=== PATIENT | female | born 1945 | race Caucasian/White ===

== ENCOUNTER 2019-01-21 08:59 | Day surgery (SDC) | payer MEDICARE, OTHER, SELFPAY ==
[2019-01-21] VITALS (10 sets, daily range): BP systolic 123–159; BP diastolic 69–90; PULSE 68–104; RESP 8–16; TEMP 35.9–36.4; O2SAT 93–98; BMI 27.3
--- NOTE | 2019-01-21 | PATH_ITS ---
[facility] Accession Number: [id number] . 01 Material submitted: . RANDOM MUCOSAL BIOPSIES . 02 Diagnosis: Random Colon Mucosal Biopsies: Multiple fragments of normal appearing colon mucosa. Negative for significant architectural distortion. Negative for significant inflammation, dysplasia and malignancy. MRV/01/22/2019 . 02 Electronically signed: . Gerard Glynn MD, Pathologist NPI- [id number] . 01 Gross description: . RANDOM MUCOSAL BIOPSIES: Received in formalin are multiple fragment(s) of wasserman, soft tissue measuring 0.2 x 0.2 x 0.2 cm to 0.4 x 0.3 x 0.2 cm which is entirely submitted and submitted entirely in 1 cassette(s) /D[facility] /DM . 02 Pathologist provided ICD-10: R19.7 . 02 CPT . 123505 Performed at: 01 [facility] [address] [facility], [place], [place] [id number] MD Armando Martin MD Phone: [phone] Performed at: 02 [facility] [address] [place], [place] [id number] MD Edith Gray MD Phone: [phone]
[2019-01-21] MEDS: SODIUM CHLORIDE 0.9% 1,000 ML 100 ML IV (10:42)
--- NOTE | 2019-01-21 11:26 | PM.PREOP ---
Pre-operative Note Interval Note History & Physical reviewed/Exam performed by Physician: Yes Changes to H&P: No
[2019-01-21] MEDS: fentaNYL 250 MCG/5 ML INJ IV (11:37)
[2019-01-21] MEDS: MIDAZOLAM 5 MG/5 ML VIAL IV (11:38)
--- NOTE | 2019-01-21 11:49 | PM.OP.1 ---
Operative Date/Time/Diagnoses Date of procedure: 01/21/19 Time of procedure: 11:49 Pre-op diagnosis: Change in bowel habits Post-op diagnosis: same Procedure & Clinicians Procedure: Colonoscopy to the cecum with cultures and random mucosal biopsies Same procedure as scheduled: Yes Indications: Last colonoscopy 2 years ago with a recent change in bowel habits Surgeon: Beverly Ashraf Anesthesia Type: Sedation (Versed 5 mg; fentanyl 225 micro g) Operative Notes Findings: 1. Adequate prep 2. No polyps or mass lesions 3. Sultana diverticulosis with very small pocket scattered throughout the length of the colon 4. Grossly normal mucosa without visual abnormality 5. Decreased anal sphincter tone. Closure Type: not applicable Specimen(s): other (1. Random mucosal biopsies-obtained with cold forceps; 2. Stool specimen for GI panel and culture ) Estimated Blood Loss (mL): 1 Procedure in detail: After obtaining informed consent, the patient was brought to the GI suite and placed in the left lateral decubitus position on the examination table. After placement of appropriate monitors, the patient was given incremental doses of Versed and Fentanyl until an appropriate level of sedation was achieved. A time out was held per SCOAP protocol. A digital rectal examination was performed and did not reveal any masses or obstructing lesions. The colonoscope was gently passed into the patient's anus and the entire colon navigated to the level of the cecum with minimal difficulty. Once in the cecum, the scope was withdrawn being sure to go before and beyond all mucosal folds and prominences and get an excellent examination. The findings are noted above. At the level of the rectal vault, the scope was retroflexed and the internal anal canal was examined. The scope was straightened and air aspirated from the colon. The instrument was removed from the patient's body and the procedure was concluded. The patient was allowed to awaken from sedation without difficulty and taken to the post-anesthesia care unit in good condition. Total sedation time was 16 minutes Total withdrawal time was 8 minutes Complications: none Condition: stable Disposition: PACU Plan for aftercare: 1. Discharge to home 2. We will contact you with pathology results and additional recommendations
[2019-01-21] MEDS: ONDANSETRON 4 MG/2 ML INJ IV (12:17)
[2019-01-21 14:03] LABS: Campylobacter Not Detected (Not Detect); Clostridium difficile toxin AB Not Detected (Not Detect); Enteroaggregative E.coli Not Detected (Not Detect); Enteropathogenic E.coli Not Detected (Not Detect); Enterotoxigenic E.coli It/st Not Detected (Not Detect); Plesiomonsa shigelloides Not Detected (Not Detect); Salmonella Not Detected (Not Detect); Shiga-like toxin-prod E.coli Not Detected (Not Detect); Vibrio Not Detected (Not Detect); Vibrio cholerae Not Detected (Not Detect); Yersinia enterocolitica Not Detected (Not Detect)
[2019-01-21 14:04] LABS: Adenovirus F 40/41 Not Detected (Not Detect); Astrovirus Not Detected (Not Detect); Cryptosporidium Not Detected (Not Detect); Cyclospora cayetanensis Not Detected (Not Detect); Entamoeba histolytica Not Detected (Not Detect); Giardia lamblia Not Detected (Not Detect); Norovirus GI/GII Not Detected (Not Detect); Rotavirus A Not Detected (Not Detect); Sapovirus Not Detected (Not Detect); Shigella/Enteroinvasive E.coli Not Detected (Not Detect)
== END 2019-01-21 14:16 | disposition home or self-care (01) ==
PROVIDERS: Family Provider Internal Medicine; PCP Internal Medicine; Visit Provider Surgery
PROC: 0DJD8ZZ Inspection of Lower Intestinal Tract, Via Natural or Artificial Opening Endoscopic (ICD-10-PCS; CPT 45378; principal; 2019-01-21 11:45)
DX: R19.4 Change in bowel habit (principal); K57.30 Diverticulosis of large intestine without perforation or abscess without bleeding
CPT/HCPCS: 45380; 87507; 88305; 99152; J2250; J2405; J3010

== ENCOUNTER 2019-07-15 13:45 | Outpatient (RCR) | payer MEDICARE, OTHER, SELFPAY ==
--- NOTE | 2019-05-11 17:13 | PT.OIE ---
Current Diagnoses Full incontinence of feces (05/06/19) Past Surgical History (Last Reviewed 12/24/18 @ 13:34 by Beverly Ashraf MD) History of cataract removal with insertion of prosthetic lens History of tonsillectomy Status post breast lumpectomy Status post hernia repair Provider Visit Care Team Role Provider Type Juany Wallis MD Primary Care Provider Non-Staff Specialty: Medical Address: [address] [place] [address], [phone] Email: Kati Flores MD Attending Provider Non-Staff Specialty: Medical Address: [address] [place] [address], [phone] Email: Physical Therapy Initial Evaluation PT-OP-A Visit Information Start: 05/06/19 14:33 Freq: Status: Active Protocol: Document 05/06/19 14:30 [facility] (Rec: 05/10/19 08:49 [facility] [email or web address]) Out-Patient Physical Therapy Visit Information Visit Information Visit Type Initial Evaluation Visit Note 73 year old female with fecal incontinence referred to Physical therapy for pelvic floor strengthening Visit Start Time 14:30 Visit Stop Time 15:15 Total Visit Minutes 45 Visit Number 1 Evaluation Information Evaluation Date 05/06/19 PT-OP-B Current Condition Start: 05/06/19 14:33 Freq: Status: Active Protocol: Document 05/06/19 14:30 [facility] (Rec: 05/10/19 08:49 [facility] [email or web address]) Current Condition History of Current Condition Onset Date 2 years ago Current Complaints unable to control fecal leakage at times History of Current Condition Radha reports her symptoms began approximately 2 years ago. She began noticing fecal leakage and it has progressed to the point to when she leaks stool it goes through her clothes and she has to throw them away. Leakage occures approximately 5 times per month. Her stool is described as soft and she never feels as if she can fully evacuate her stool Treatment Goals Patient/Caregiver Goals Pt's goals include strengthenign her pelvic floor for improved support to her pelvic organs and decreasing fecal incontinence PT-OP-F Manual Assessment Start: 05/11/19 17:12 Freq: Status: Active Protocol: Document 05/06/19 14:30 [facility] (Rec: 05/11/19 17:13 [facility] [email or web address]) Manual Assessments Soft Tissue Assessment Soft Tissue Mobility Assessment fascial restrictions across the transverse colon and down the descending colon, fascial adhesions in the suprapubic region PT-OP-I Pelvic Floor Start: 05/06/19 14:33 Freq: Status: Active Protocol: Document 05/06/19 14:30 [facility] (Rec: 05/11/19 16:51 [facility] [email or web address]) Pelvic Floor Assessment Urine Pelvic Floor Surgery No Urinary Symptoms Urge Sensation Other Urinary Symptoms nocturia 2-3 times pernight Voiding Frequency 2-3 times per day Nocturia yes Pelvic Clock Pelvic Clock 12-3 Atrophy Pelvic Clock 3-6 Atrophy Guarding Pelvic Clock 6-9 Atrophy Guarding Pelvic Clock 9-12 Atrophy Pelvic Clock Other posterior wall is guarded Prolapse Cystocele Grade 2 Urethrocele Grade 2 Contraction Ability Voluntary Contraction Weak Voluntary Relaxation Weak Manual Muscle Testing Left 2 Manual Muscle Testing Right 2 Manual Muscle Testing Anterior 1 Manual Muscle Testing Posterior 2 Muscle Endurance (Seconds) 4 PT-OP-Q Treatments Start: 05/06/19 14:33 Freq: Status: Active Protocol: Document 05/06/19 14:30 [facility] (Rec: 05/11/19 16:51 [facility] [email or web address]) Self-Care/Home Management Treatment Education Patient Education Body Mechanics Home Exercise Program Posture Other Education education on positioning for toileting including feet on the floor instead of on toes, spreading sitting bones and getting her knees up a bit higher by putting books under her feet. Pt was also instructed in the ILU self massage. PT-OP-T Assessment and Plan Start: 05/06/19 14:33 Freq: Status: Active Protocol: Document 05/06/19 14:30 [facility] (Rec: 05/11/19 16:51 [facility] [email or web address]) Physical Therapy Assessment Rehab Potential Rehabilitation Potential Good Evaluation Complexity Number of Personal Factors/Comorbidities 0 Number of Body Systems Impaired 1-2 Clinical Presentation at Evaluation Stable Impairments Impairments Pain Posture Soft Tissue Mobility Strength Tone Goals Three Impairment poor endurance of the levator ani < 5 second hold time Short Term Goal (STG) Radha is able to improve the endurance of the pelvic floor to 10 second hold time in supine STG Duration 4 weeks Detention Goal (LTG) Radha is able to improve her endurance of the pelvic floor to 10 second hold time in standing LTG Duration 8 weeks Two Impairment weakness of the levator ani 1/ 5 anterior, 2/5 lateral and posterior sandoval Short Term Goal (STG) With EMG biofeedback Radha is able to increase facilitation and sensation of her pelvic floor for improved recruitment of the levator ani STG Duration 4 weeks Candlemaker Goal (LTG) Improve strength of the levator ani to 3/5 or better on MMT for improved support for the pelvic organs LTG Duration 8 weeks One Impairment Fecal incontinence leakage through her clothes Detention Goal (LTG) Radha is able to increase her pelvic floor strength to decrease fecal incontinence LTG Duration 8 weeks Assessment Summary Assessment Radha is a 73 year female referred to Physical therapy for fecal leakage and pelvic floor weakness. Her symtpoms began approximately 2 years ago. At this time she is leaking 5 times per month and leaking enough that she has to throw her clothes away following a leak. Leakage is caused by changing positions such as sit-stand, walking to the toilet, and strong urge to void. Radha reports that she will leak stool in standing positions as well as lying down. She does report pelvic pressure with standing and exertion or straining. She describes very soft stool that has a large amount of mucus in it. This very soft stool does make it difficult to control and she may benefit from further work up as to why her stool is so soft. We talked about dietary intake a little today and Radha does report she does not like to cook and she isn't eating much throughout the day except at her dinner meal. With examination she is very weak in her pelvic floor musculature. She tests 1/5 anterior wall, 2/5 lateral and posterior sandoval MMT. She is very guarded in the posterior wall and has difficulty relaxing following a contraction. I educated Radha today on body mechanics for defecation as she is currently not able to place her feet flat on the floor at home. We discussed using books for now to place her feet on to be able to further relax her pelvic floor. She was taught a self colon massage over the abdomen to help stimulate peristalsis to assist with fully emptying her bowels. She will benefit from pelvic floor strengtheing with EMG biofeedback for improved support of the rectal sphincter and rectum. She is a good candidate for PT Physical Therapy Plan Frequency and Duration Frequency of Treatment 1x/Week Duration of Treatment 8 Plan of Care Start Date 05/06/19 Plan of Care End Date 07/01/19 Therapeutic Interventions Therapeutic Interventions Home Exercise Program Manual Therapy Neuromuscular Re-education Patient/Caregiver Education Self-Care/Home Management Soft Tissue Mobilization Therapeutic Exercises Modalities Biofeedback Next Visit Focus/Plan Next Note Type Treatment Note Next Visit Plan Begin EMG biofeedback next visit for pelvic floor strengthening. Review ILU self massage
--- NOTE | 2019-05-11 17:13 | PT.OPPOC ---
Current Diagnoses Full incontinence of feces (05/06/19) Provider Visit Care Team Role Provider Type Juany Wallis MD Primary Care Provider Non-Staff Specialty: Medical Address: [address] [place] [address], [phone] Email: Kati Flores MD Attending Provider Non-Staff Specialty: Medical Address: [address] [place] [address], [phone] Email: Plan Of Care PT-OP-T Assessment and Plan Start: 05/06/19 14:33 Freq: Status: Active Protocol: Document 05/06/19 14:30 [facility] (Rec: 05/11/19 16:51 [facility] [email or web address]) Physical Therapy Assessment Rehab Potential Rehabilitation Potential Good Evaluation Complexity Number of Personal Factors/Comorbidities 0 Number of Body Systems Impaired 1-2 Clinical Presentation at Evaluation Stable Impairments Impairments Pain Posture Soft Tissue Mobility Strength Tone Goals Three Impairment poor endurance of the levator ani < 5 second hold time Short Term Goal (STG) Radha is able to improve the endurance of the pelvic floor to 10 second hold time in supine STG Duration 4 weeks Fmd Teacher Goal (LTG) Radha is able to improve her endurance of the pelvic floor to 10 second hold time in standing LTG Duration 8 weeks Two Impairment weakness of the levator ani 1/ 5 anterior, 2/5 lateral and posterior sandoval Short Term Goal (STG) With EMG biofeedback Radha is able to increase facilitation and sensation of her pelvic floor for improved recruitment of the levator ani STG Duration 4 weeks Fmd Teacher Goal (LTG) Improve strength of the levator ani to 3/5 or better on MMT for improved support for the pelvic organs LTG Duration 8 weeks One Impairment Fecal incontinence leakage through her clothes Fmd Teacher Goal (LTG) Radha is able to increase her pelvic floor strength to decrease fecal incontinence LTG Duration 8 weeks Assessment Summary Assessment Radha is a 73 year female referred to Physical therapy for fecal leakage and pelvic floor weakness. Her symptoms began approximately 2 years ago. At this time she is leaking 5 times per month and leaking enough that she has to throw her clothes away following a leak. Leakage is caused by changing positions such as sit-stand, walking to the toilet, and strong urge to void. Radha reports that she will leak stool in standing positions as well as lying down. She does report pelvic pressure with standing and exertion or straining. She describes very soft stool that has a large amount of mucus in it. This very soft stool does make it difficult to control and she may benefit from further work up as to why her stool is so soft. We talked about dietary intake a little today and Radha does report she does not like to cook and she isn't eating much throughout the day except at her dinner meal. With examination she is very weak in her pelvic floor musculature. She tests 1/5 anterior wall, 2/5 lateral and posterior sandoval MMT. She is very guarded in the posterior wall and has difficulty relaxing following a contraction. I educated Radha today on body mechanics for defecation as she is currently not able to place her feet flat on the floor at home. We discussed using books for now to place her feet on to be able to further relax her pelvic floor. She was taught a self colon massage over the abdomen to help stimulate peristalsis to assist with fully emptying her bowels. She will benefit from pelvic floor strengthening with EMG biofeedback for improved support of the rectal sphincter and rectum. She is a good candidate for PT Physical Therapy Plan Frequency and Duration Frequency of Treatment 1x/Week Duration of Treatment 8 Plan of Care Start Date 05/06/19 Plan of Care End Date 07/01/19 Therapeutic Interventions Therapeutic Interventions Home Exercise Program Manual Therapy Neuromuscular Re-education Patient/Caregiver Education Self-Care/Home Management Soft Tissue Mobilization Therapeutic Exercises Modalities Biofeedback Next Visit Focus/Plan Next Note Type Treatment Note Next Visit Plan Begin EMG biofeedback next visit for pelvic floor strengthening. Review ILU self massage Plan of Care Dates Plan of Care Start Date 05/06/19 Plan of Care End Date 07/01/19 Please Sign and Return: I have reviewed this Plan of Care and certify that the skilled therapy services above are required to meet the patient?s needs. Physician Signature Date Printed Name and Credentials Clinical Instructor Signature Printed Name and Credentials
--- NOTE | 2019-05-13 18:52 | PT.OTN ---
Current Diagnoses Full incontinence of feces (05/13/19) Physical Therapy Treatment Note PT-OP-A Visit Information Start: 05/06/19 14:33 Freq: Status: Active Protocol: Document 05/13/19 14:30 [facility] (Rec: 05/13/19 18:52 [facility] [email or web address]) Out-Patient Physical Therapy Visit Information Visit Information Visit Type Treatment Note Visit Start Time 14:30 Visit Stop Time 15:15 Total Visit Minutes 45 Visit Number 2 Evaluation Information Evaluation Date 05/06/19 PT-OP-B Current Condition Start: 05/06/19 14:33 Freq: Status: Active Protocol: Document 05/06/19 14:30 [facility] (Rec: 05/10/19 08:49 [facility] [email or web address]) Current Condition History of Current Condition Onset Date 2 years ago Current Complaints unable to control fecal leakage at times History of Current Condition Radha reports her symptoms began approximately 2 years ago. She began noticing fecal leakage and it has progressed to the point to when she leaks stool it goes through her clothes and she has to throw them away. Leakage occures approximately 5 times per month. Her stool is described as soft and she never feels as if she can fully evacuate her stool Treatment Goals Patient/Caregiver Goals Pt's goals include strengthenign her pelvic floor for improved support to her pelvic organs and decreasing fecal incontinence PT-OP-C Subjective Start: 05/06/19 14:33 Freq: Status: Active Protocol: Document 05/13/19 14:30 [facility] (Rec: 05/13/19 18:52 [facility] [email or web address]) OP-PT Subjective Patient Comments Patient Comments Radha reports she felt very sore in her pelvis following her first visit and her exercises. She reports leaking three times in one day this week PT-OP-F Manual Assessment Start: 05/11/19 17:12 Freq: Status: Active Protocol: Document 05/06/19 14:30 [facility] (Rec: 05/11/19 17:13 [facility] [email or web address]) Manual Assessments Soft Tissue Assessment Soft Tissue Mobility Assessment fascial restrictions across the transverse colon and down the descending colon, fascial adhesions in the suprapubic region PT-OP-I Pelvic Floor Start: 05/06/19 14:33 Freq: Status: Active Protocol: Document 05/06/19 14:30 [facility] (Rec: 05/11/19 16:51 [facility] [email or web address]) Pelvic Floor Assessment Urine Pelvic Floor Surgery No Urinary Symptoms Urge Sensation Other Urinary Symptoms nocturia 2-3 times pernight Voiding Frequency 2-3 times per day Nocturia yes Pelvic Clock Pelvic Clock 12-3 Atrophy Pelvic Clock 3-6 Atrophy Guarding Pelvic Clock 6-9 Atrophy Guarding Pelvic Clock 9-12 Atrophy Pelvic Clock Other posterior wall is guarded Prolapse Cystocele Grade 2 Urethrocele Grade 2 Contraction Ability Voluntary Contraction Weak Voluntary Relaxation Weak Manual Muscle Testing Left 2 Manual Muscle Testing Right 2 Manual Muscle Testing Anterior 1 Manual Muscle Testing Posterior 2 Muscle Endurance (Seconds) 4 PT-OP-Q Treatments Start: 05/06/19 14:33 Freq: Status: Active Protocol: Document 05/13/19 14:30 [facility] (Rec: 05/13/19 18:52 [facility] [email or web address]) Therapeutic Exercises Supine Exercises 6 Supine Exercise Name Happy baby stretch Reps/Minutes x 1 min hold 5 Supine Exercise Name TA faciliation in hooklying 4 Supine Exercise Name rol outs Reps/Minutes 3 x 10 reps 3 Supine Exercise Name ball squeeze Reps/Minutes x 10 2 Supine Exercise Name pelvic floor quick contractions Reps/Minutes x 10 reps 1 Supine Exercise Name pelvic floor long holds Reps/Minutes 10 seconds on 10 seconds off x 10 reps Manual Therapy Treatment Soft Tissue Mobilization 1 Body Location ILU massage over the colon Mobilization Type Strumming PT-OP-T Assessment and Plan Start: 05/06/19 14:33 Freq: Status: Active Protocol: Document 05/13/19 14:30 [facility] (Rec: 05/13/19 18:52 [facility] [email or web address]) Physical Therapy Assessment Assessment Summary Assessment EMG biofeedback was initiated today for pelvic floor strengthneing. A rectal sensor was used as the vaginal sensor was too painful. Average resting tone is 5.2 uv , average contraction 8.3 uv and max of 11.8. Relaxed awareness was taught with pelvic floor stretch. No pain reported with pelvic floor exercises today Physical Therapy Plan Frequency and Duration Frequency of Treatment 1x/Week Duration of Treatment 8 Plan of Care Start Date 05/06/19 Plan of Care End Date 07/01/19 Next Visit Focus/Plan Next Note Type Treatment Note Next Visit Plan continue to work on both pelvic floor stabilization as well as relaxed awareness of the pelvic floor.
--- NOTE | 2019-05-20 17:34 | PT.OTN ---
Current Diagnoses Full incontinence of feces (05/20/19) Physical Therapy Treatment Note PT-OP-A Visit Information Start: 05/06/19 14:33 Freq: Status: Active Protocol: Document 05/20/19 17:29 [facility] (Rec: 05/20/19 17:34 [facility] [email or web address]) Out-Patient Physical Therapy Visit Information Visit Information Visit Type Treatment Note Visit Start Time 14:30 Visit Stop Time 15:15 Total Visit Minutes 45 Visit Number 3 PT-OP-B Current Condition Start: 05/06/19 14:33 Freq: Status: Active Protocol: Document 05/06/19 14:30 [facility] (Rec: 05/10/19 08:49 [facility] [email or web address]) Current Condition History of Current Condition Onset Date 2 years ago Current Complaints unable to control fecal leakage at times History of Current Condition Radha reports her symptoms began approximately 2 years ago. She began noticing fecal leakage and it has progressed to the point to when she leaks stool it goes through her clothes and she has to throw them away. Leakage occures approximately 5 times per month. Her stool is described as soft and she never feels as if she can fully evacuate her stool Treatment Goals Patient/Caregiver Goals Pt's goals include strengthenign her pelvic floor for improved support to her pelvic organs and decreasing fecal incontinence PT-OP-C Subjective Start: 05/06/19 14:33 Freq: Status: Active Protocol: Document 05/20/19 17:29 [facility] (Rec: 05/20/19 17:34 [facility] [email or web address]) OP-PT Subjective Patient Comments Patient Comments Radha reports her soreness has gone away. She has only experienced one leak this week PT-OP-F Manual Assessment Start: 05/11/19 17:12 Freq: Status: Active Protocol: Document 05/06/19 14:30 [facility] (Rec: 05/11/19 17:13 [facility] [email or web address]) Manual Assessments Soft Tissue Assessment Soft Tissue Mobility Assessment fascial restrictions across the transverse colon and down the descending colon, fascial adhesions in the suprapubic region PT-OP-I Pelvic Floor Start: 05/06/19 14:33 Freq: Status: Active Protocol: Document 05/06/19 14:30 [facility] (Rec: 05/11/19 16:51 [facility] [email or web address]) Pelvic Floor Assessment Urine Pelvic Floor Surgery No Urinary Symptoms Urge Sensation Other Urinary Symptoms nocturia 2-3 times pernight Voiding Frequency 2-3 times per day Nocturia yes Pelvic Clock Pelvic Clock 12-3 Atrophy Pelvic Clock 3-6 Atrophy Guarding Pelvic Clock 6-9 Atrophy Guarding Pelvic Clock 9-12 Atrophy Pelvic Clock Other posterior wall is guarded Prolapse Cystocele Grade 2 Urethrocele Grade 2 Contraction Ability Voluntary Contraction Weak Voluntary Relaxation Weak Manual Muscle Testing Left 2 Manual Muscle Testing Right 2 Manual Muscle Testing Anterior 1 Manual Muscle Testing Posterior 2 Muscle Endurance (Seconds) 4 PT-OP-Q Treatments Start: 05/06/19 14:33 Freq: Status: Active Protocol: Document 05/20/19 17:29 [facility] (Rec: 05/20/19 17:34 [facility] [email or web address]) Therapeutic Exercises Supine Exercises 8 Supine Exercise Name single knee to chest stretch 7 Supine Exercise Name TA with marches Reps/Minutes x 10 each leg 6 Supine Exercise Name Happy baby stretch Reps/Minutes x 1 min hold 5 Supine Exercise Name TA faciliation in hooklying 4 Supine Exercise Name rol outs Reps/Minutes 3 x 10 reps 3 Supine Exercise Name ball squeeze Reps/Minutes x 10 2 Supine Exercise Name pelvic floor quick contractions Reps/Minutes x 10 reps 1 Supine Exercise Name pelvic floor long holds Reps/Minutes 10 seconds on 10 seconds off x 10 reps Manual Therapy Treatment Soft Tissue Mobilization 1 Body Location ILU massage over the colon Mobilization Type Strumming PT-OP-T Assessment and Plan Start: 05/06/19 14:33 Freq: Status: Active Protocol: Document 05/20/19 17:29 [facility] (Rec: 05/20/19 17:34 [facility] [email or web address]) Physical Therapy Assessment Assessment Summary Assessment Good increase in stabilization today with the pelvic floor. Her resting tone was decreased to 1-2 uv much improved and endurance with also much better. Physical Therapy Plan Next Visit Focus/Plan Next Note Type Treatment Note Next Visit Plan Increase HEP with TA facilitation next visit.
--- NOTE | 2019-06-10 17:22 | PT.OTN ---
Current Diagnoses Full incontinence of feces (06/10/19) Physical Therapy Treatment Note PT-OP-A Visit Information Start: 05/06/19 14:33 Freq: Status: Active Protocol: Document 06/10/19 14:30 [facility] (Rec: 06/10/19 17:22 [facility] [email or web address]) Out-Patient Physical Therapy Visit Information Visit Information Visit Type Treatment Note Visit Start Time 14:30 Visit Stop Time 15:15 Total Visit Minutes 45 Visit Number 4 Evaluation Information Evaluation Date 05/06/19 PT-OP-B Current Condition Start: 05/06/19 14:33 Freq: Status: Active Protocol: Document 05/06/19 14:30 [facility] (Rec: 05/10/19 08:49 [facility] [email or web address]) Current Condition History of Current Condition Onset Date 2 years ago Current Complaints unable to control fecal leakage at times History of Current Condition Radha reports her symptoms began approximately 2 years ago. She began noticing fecal leakage and it has progressed to the point to when she leaks stool it goes through her clothes and she has to throw them away. Leakage occures approximately 5 times per month. Her stool is described as soft and she never feels as if she can fully evacuate her stool Treatment Goals Patient/Caregiver Goals Pt's goals include strengthenign her pelvic floor for improved support to her pelvic organs and decreasing fecal incontinence PT-OP-C Subjective Start: 05/06/19 14:33 Freq: Status: Active Protocol: Document 06/10/19 14:35 [facility] (Rec: 06/10/19 14:36 [facility] [id number]) OP-PT Subjective Patient Comments Patient Comments Pt reports she has been eating stool a better consistancy so she hasn't had any leakages with stool. She has had still some bladder leakage when she wakes up with a full bladder Patient Reported Progress Improving PT-OP-F Manual Assessment Start: 05/11/19 17:12 Freq: Status: Active Protocol: Document 05/06/19 14:30 [facility] (Rec: 05/11/19 17:13 [facility] [email or web address]) Manual Assessments Soft Tissue Assessment Soft Tissue Mobility Assessment fascial restrictions across the transverse colon and down the descending colon, fascial adhesions in the suprapubic region PT-OP-I Pelvic Floor Start: 05/06/19 14:33 Freq: Status: Active Protocol: Document 05/06/19 14:30 [facility] (Rec: 07/23/19 16:51 [facility] [email or web address]) Pelvic Floor Assessment Urine Pelvic Floor Surgery No Urinary Symptoms Urge Sensation Other Urinary Symptoms nocturia 2-3 times pernight Voiding Frequency 2-3 times per day Nocturia yes Pelvic Clock Pelvic Clock 12-3 Atrophy Pelvic Clock 3-6 Atrophy Guarding Pelvic Clock 6-9 Atrophy Guarding Pelvic Clock 9-12 Atrophy Pelvic Clock Other posterior wall is guarded Prolapse Cystocele Grade 2 Urethrocele Grade 2 Contraction Ability Voluntary Contraction Weak Voluntary Relaxation Weak Manual Muscle Testing Left 2 Manual Muscle Testing Right 2 Manual Muscle Testing Anterior 1 Manual Muscle Testing Posterior 2 Muscle Endurance (Seconds) 4 PT-OP-Q Treatments Start: 05/06/19 14:33 Freq: Status: Active Protocol: Document 06/10/19 14:30 [facility] (Rec: 06/10/19 17:22 [facility] [email or web address]) Therapeutic Exercises Supine Exercises 8 Supine Exercise Name single knee to chest stretch 7 Supine Exercise Name TA with marches Reps/Minutes x 10 each leg 6 Supine Exercise Name Happy baby stretch Reps/Minutes x 1 min hold 5 Supine Exercise Name TA faciliation in hooklying 4 Supine Exercise Name roll outs Reps/Minutes 3 x 10 reps 3 Supine Exercise Name ball squeeze Reps/Minutes x 10 2 Supine Exercise Name pelvic floor quick contractions Reps/Minutes x 10 reps 1 Supine Exercise Name pelvic floor long holds Reps/Minutes 10 seconds on 10 seconds off x 10 reps Sidelying Exercises 1 Sidelying Exercise Name sidelying clam shells Reps/Minutes 3 x 10 reps Other Exercises 1 Other Exercise Name quadraped TA facilitation Reps/Minutes x 10 reps PT-OP-T Assessment and Plan Start: 05/06/19 14:33 Freq: Status: Active Protocol: Document 06/10/19 14:30 [facility] (Rec: 06/10/19 17:22 [facility] [email or web address]) Physical Therapy Assessment Assessment Summary Assessment Resting tone was very much decreased and strength is improving. No c/o fecal leakage and urinary urgency has only happened in the am with a full bladder Physical Therapy Plan Frequency and Duration Frequency of Treatment 1x/Week Duration of Treatment 8 Plan of Care Start Date 05/06/19 Plan of Care End Date 07/01/19 Next Visit Focus/Plan Next Note Type Treatment Note Next Visit Plan recheck pelvic floor with internal exam next visit
--- NOTE | 2019-06-29 10:49 | PT.OTN ---
Current Diagnoses Full incontinence of feces (06/28/19) Physical Therapy Treatment Note PT-OP-A Visit Information Start: 05/06/19 14:33 Freq: Status: Active Protocol: Document 06/28/19 13:00 [facility] (Rec: 06/29/19 10:43 [facility] [email or web address]) Out-Patient Physical Therapy Visit Information Visit Information Visit Type Progress Note Visit Start Time 13:00 Visit Stop Time 13:45 Total Visit Minutes 45 Visit Number 5 PT-OP-B Current Condition Start: 05/06/19 14:33 Freq: Status: Active Protocol: Document 05/06/19 14:30 [facility] (Rec: 05/10/19 08:49 [facility] [email or web address]) Current Condition History of Current Condition Onset Date 2 years ago Current Complaints unable to control fecal leakage at times History of Current Condition Radha reports her symptoms began approximately 2 years ago. She began noticing fecal leakage and it has progressed to the point to when she leaks stool it goes through her clothes and she has to throw them away. Leakage occures approximately 5 times per month. Her stool is described as soft and she never feels as if she can fully evacuate her stool Treatment Goals Patient/Caregiver Goals Pt's goals include strengthenign her pelvic floor for improved support to her pelvic organs and decreasing fecal incontinence PT-OP-C Subjective Start: 05/06/19 14:33 Freq: Status: Active Protocol: Document 06/28/19 13:00 [facility] (Rec: 06/29/19 10:43 [facility] [email or web address]) OP-PT Subjective Patient Comments Patient Comments Radha reports overall things are better. She will at times have a bowel movement and then shower and the heat of the shower will cause her to have a second bowel movement. Radha also reports it is difficult for her to get to her exercises daily PT-OP-F Manual Assessment Start: 05/11/19 17:12 Freq: Status: Active Protocol: Document 05/06/19 14:30 [facility] (Rec: 05/11/19 17:13 [facility] [email or web address]) Manual Assessments Soft Tissue Assessment Soft Tissue Mobility Assessment fascial restrictions across the transverse colon and down the descending colon, fascial adhesions in the suprapubic region PT-OP-I Pelvic Floor Start: 05/06/19 14:33 Freq: Status: Active Protocol: Document 05/06/19 14:30 [facility] (Rec: 05/11/19 16:51 [facility] [email or web address]) Pelvic Floor Assessment Urine Pelvic Floor Surgery No Urinary Symptoms Urge Sensation Other Urinary Symptoms nocturia 2-3 times pernight Voiding Frequency 2-3 times per day Nocturia yes Pelvic Clock Pelvic Clock 12-3 Atrophy Pelvic Clock 3-6 Atrophy,Guarding Pelvic Clock 6-9 Atrophy,Guarding Pelvic Clock 9-12 Atrophy Pelvic Clock Other posterior wall is guarded Prolapse Cystocele Grade 2 Urethrocele Grade 2 Contraction Ability Voluntary Contraction Weak Voluntary Relaxation Weak Manual Muscle Testing Left 2 Manual Muscle Testing Right 2 Manual Muscle Testing Anterior 1 Manual Muscle Testing Posterior 2 Muscle Endurance (Seconds) 4 PT-OP-Q Treatments Start: 05/06/19 14:33 Freq: Status: Active Protocol: Document 06/28/19 13:00 [facility] (Rec: 06/29/19 10:43 [facility] [email or web address]) Therapeutic Exercises Supine Exercises 8 Supine Exercise Name single knee to chest stretch 7 Supine Exercise Name TA with marches Reps/Minutes x 10 each leg 6 Supine Exercise Name Happy baby stretch Reps/Minutes x 1 min hold 5 Supine Exercise Name TA faciliation in hooklying 4 Supine Exercise Name roll outs Reps/Minutes 3 x 10 reps 3 Supine Exercise Name ball squeeze Reps/Minutes x 10 2 Supine Exercise Name pelvic floor quick contractions Reps/Minutes x 10 reps 1 Supine Exercise Name pelvic floor long holds Reps/Minutes 10 seconds on 10 seconds off x 10 reps Sidelying Exercises 1 Sidelying Exercise Name sidelying clam shells Reps/Minutes 3 x 10 reps Manual Therapy Treatment Manual Techniques 1 Type manual assessment of pelvic floor strength Comments anterior wall 2/5 MMT posterior wall 3/5 lateral sandoval 3/5 Improved endurance to 8 second hold time PT-OP-T Assessment and Plan Start: 05/06/19 14:33 Freq: Status: Active Protocol: Document 06/28/19 13:00 [facility] (Rec: 06/29/19 10:43 [facility] [email or web address]) Physical Therapy Assessment Goals Three Impairment poor endurance of the levator ani < 5 second hold time Short Term Goal (STG) Radha is able to improve the endurance of the pelvic floor to 10 second hold time in supine GOOD PROGRESS, UP TO * SECONDS NOW STG Duration 4 weeks Business Services Representative Goal (LTG) Radha is able to improve her endurance of the pelvic floor to 10 second hold time in standing LTG Duration 8 weeks Two Impairment weakness of the levator ani 1/ 5 anterior, 2/5 lateral and posterior sandoval Short Term Goal (STG) With EMG biofeedback Radha is able to increase facilitation and sensation of her pelvic floor for improved recruitment of the levator ani GOAL MET Halfway Goal (LTG) Improve strength of the levator ani to 3/5 or better on MMT for improved support for the pelvic organs GOAL MET WITH THE EXCEPTION OF THE ANTERIOR WALL 2/5 MMT One Impairment Fecal incontinence leakage through her clothes Business Services Representative Goal (LTG) Radha is able to increase her pelvic floor strength to decrease fecal incontinence OVERALL FECAL INCONTINENCE SYMPTOMS HAVE LESSENED AND RADHA HAS REPORTED A FEW WEEKS WITHOUT LEAKAGE Progress Towards Goals Progress Towards Goals Progressing Toward Goals Assessment Summary Assessment Radha is making steady progress with Physical Therapy . Her resting tone is at baseline now and her strength of contraction is improved. Re-evaluation of pelvic floor shows MMT 2/5 anterior pelvic floor, 3/5 all others so there is improvment. Fecal leakage is less and urges are less frequent. Radha is waking 1 time per night to void now instead of 2-3. She has a few visits scheduled to progress her to pelvic floor strengthening in upright postures and functional positions. She will then be discharged to a independent home program. Thank you for this referral. Physical Therapy Plan Frequency and Duration Frequency of Treatment 1x/Week Duration of Treatment 4 Plan of Care Start Date 06/28/19 Plan of Care End Date 07/26/19 Therapeutic Interventions Therapeutic Interventions Home Exercise Program,Manual Therapy,Neuromuscular Re- education,Patient/Caregiver Education,Self-Care/Home Management,Soft Tissue Mobilization,Therapeutic Exercises Modalities Biofeedback Next Visit Focus/Plan Next Note Type Treatment Note Next Visit Plan Progress pelvic floor strengthening in upright positions
--- NOTE | 2019-06-29 10:49 | PT.OPPOC ---
Current Diagnoses Full incontinence of feces (06/28/19) Visit Care Team Role Provider Type Juany Wallis MD Primary Care Provider Non-Staff Specialty: Medical Address: [address] [place] [address], [phone] Email: Kati Flores MD Attending Provider Non-Staff Specialty: Medical Address: [address] [place], [place] [address], [place], [phone] Email: Plan Of Care PT-OP-T Assessment and Plan Start: 05/06/19 14:33 Freq: Status: Active Protocol: Document 06/28/19 13:00 [facility] (Rec: 06/29/19 10:43 [facility] [email or web address]) Physical Therapy Assessment Goals Three Impairment poor endurance of the levator ani < 5 second hold time Short Term Goal (STG) Radha is able to improve the endurance of the pelvic floor to 10 second hold time in supine GOOD PROGRESS, UP TO 8 SECONDS NOW STG Duration 4 weeks Cigar Bander Goal (LTG) Radha is able to improve her endurance of the pelvic floor to 10 second hold time in standing LTG Duration 8 weeks Two Impairment weakness of the levator ani 1/ 5 anterior, 2/5 lateral and posterior sandoval Short Term Goal (STG) With EMG biofeedback Radha is able to increase facilitation and sensation of her pelvic floor for improved recruitment of the levator ani GOAL MET Nursing Home Goal (LTG) Improve strength of the levator ani to 3/5 or better on MMT for improved support for the pelvic organs GOAL MET WITH THE EXCEPTION OF THE ANTERIOR WALL 2/5 MMT One Impairment Fecal incontinence leakage through her clothes Cigar Bander Goal (LTG) Radha is able to increase her pelvic floor strength to decrease fecal incontinence OVERALL FECAL INCONTINENCE SYMPTOMS HAVE LESSENED AND RADHA HAS REPORTED A FEW WEEKS WITHOUT LEAKAGE Progress Towards Goals Progress Towards Goals Progressing Toward Goals Assessment Summary Assessment Radha is making steady progress with Physical Therapy . Her resting tone is at baseline now and her strength of contraction is improved. Re-evaluation of pelvic floor shows MMT 2/5 anterior pelvic floor, 3/5 all others so there is improvement. Fecal leakage is less and urges are less frequent. Radha is waking 1 time per night to void now instead of 2-3. She has a few visits scheduled to progress her to pelvic floor strengthening in upright postures and functional positions. She will then be discharged to a independent home program. Thank you for this referral. Physical Therapy Plan Frequency and Duration Frequency of Treatment 1x/Week Duration of Treatment 4 Plan of Care Start Date 06/28/19 Plan of Care End Date 07/26/19 Therapeutic Interventions Therapeutic Interventions Home Exercise Program,Manual Therapy,Neuromuscular Re- education,Patient/Caregiver Education,Self-Care/Home Management,Soft Tissue Mobilization,Therapeutic Exercises Modalities Biofeedback Next Visit Focus/Plan Next Note Type Treatment Note Next Visit Plan Progress pelvic floor strengthening in upright positions Plan of Care Dates Plan of Care Start Date 06/28/19 Plan of Care End Date 07/26/19 Please Sign and Return: I have reviewed this Plan of Care and certify that the skilled therapy services above are required to meet the patient?s needs. Physician Signature Date Printed Name and Credentials Clinical Instructor Signature Printed Name and Credentials
--- NOTE | 2019-07-15 14:25 | PT.OTN ---
Current Diagnoses Full incontinence of feces (07/15/19) Physical Therapy Treatment Note PT-OP-A Visit Information Start: 05/06/19 14:33 Freq: Status: Active Protocol: Document 07/15/19 13:47 [facility] (Rec: 07/15/19 13:54 [facility] [id number]) Out-Patient Physical Therapy Visit Information Visit Information Visit Type Treatment Note Visit Start Time 13:45 PT-OP-B Current Condition Start: 05/06/19 14:33 Freq: Status: Active Protocol: Document 05/06/19 14:30 [facility] (Rec: 05/10/19 08:49 [facility] [email or web address]) Current Condition History of Current Condition Onset Date 2 years ago Current Complaints unable to control fecal leakage at times History of Current Condition Radha reports her symptoms began approximately 2 years ago. She began noticing fecal leakage and it has progressed to the point to when she leaks stool it goes through her clothes and she has to throw them away. Leakage occures approximately 5 times per month. Her stool is described as soft and she never feels as if she can fully evacuate her stool Treatment Goals Patient/Caregiver Goals Pt's goals include strengthenign her pelvic floor for improved support to her pelvic organs and decreasing fecal incontinence PT-OP-C Subjective Start: 05/06/19 14:33 Freq: Status: Active Protocol: Document 07/15/19 13:47 [facility] (Rec: 07/15/19 13:54 [facility] [id number]) OP-PT Subjective Patient Comments Patient Comments Feels better and thinks time can be her last visit. Leakage has improved. PT-OP-F Manual Assessment Start: 05/11/19 17:12 Freq: Status: Active Protocol: Document 05/06/19 14:30 [facility] (Rec: 05/11/19 17:13 [facility] [email or web address]) Manual Assessments Soft Tissue Assessment Soft Tissue Mobility Assessment fascial restrictions across the transverse colon and down the descending colon, fascial adhesions in the suprapubic region PT-OP-I Pelvic Floor Start: 05/06/19 14:33 Freq: Status: Active Protocol: Document 05/06/19 14:30 [facility] (Rec: 05/11/19 16:51 [facility] [email or web address]) Pelvic Floor Assessment Urine Pelvic Floor Surgery No Urinary Symptoms Urge Sensation Other Urinary Symptoms nocturia 2-3 times pernight Voiding Frequency 2-3 times per day Nocturia yes Pelvic Clock Pelvic Clock 12-3 Atrophy Pelvic Clock 3-6 Atrophy,Guarding Pelvic Clock 6-9 Atrophy,Guarding Pelvic Clock 9-12 Atrophy Pelvic Clock Other posterior wall is guarded Prolapse Cystocele Grade 2 Urethrocele Grade 2 Contraction Ability Voluntary Contraction Weak Voluntary Relaxation Weak Manual Muscle Testing Left 2 Manual Muscle Testing Right 2 Manual Muscle Testing Anterior 1 Manual Muscle Testing Posterior 2 Muscle Endurance (Seconds) 4 PT-OP-Q Treatments Start: 05/06/19 14:33 Freq: Status: Active Protocol: Document 07/15/19 14:21 [facility] (Rec: 07/15/19 14:22 [facility] [id number]) Therapeutic Exercises Supine Exercises 8 Supine Exercise Name single knee to chest stretch 7 Supine Exercise Name TA with marches Reps/Minutes x 10 each leg 6 Supine Exercise Name Happy baby stretch Reps/Minutes x 1 min hold 5 Supine Exercise Name TA faciliation in hooklying 4 Supine Exercise Name roll outs Reps/Minutes 3 x 10 reps 3 Supine Exercise Name ball squeeze Reps/Minutes x 10 2 Supine Exercise Name pelvic floor quick contractions Reps/Minutes x 10 reps 1 Supine Exercise Name pelvic floor long holds Reps/Minutes 10 seconds on 10 seconds off x 10 reps Sidelying Exercises 1 Sidelying Exercise Name sidelying clam shells Reps/Minutes 3 x 10 reps Other Exercises 1 Other Exercise Name quadraped TA facilitation Reps/Minutes x 10 reps PT-OP-T Assessment and Plan Start: 05/06/19 14:33 Freq: Status: Active Protocol: Document 07/15/19 14:24 [facility] (Rec: 07/15/19 14:25 [facility] [email or web address]) Physical Therapy Assessment Assessment Summary Assessment Pt feels independent with her home program and has made good overall progress. all exercises were reviewed today and she shows good awareness with her program. She will be discharged to a home program at this time Physical Therapy Plan Discharge Physical Therapy Discharge Reasons Goals Met
== END 2019-07-30 12:48 ==
LOC: PHYS 13:45
PROVIDERS: PCP Internal Medicine; Visit Provider Internal Medicine Gastroenterology
DX: R15.9 Full incontinence of feces (principal)
CPT/HCPCS: 97110; 97140; 97161; 97535

== ENCOUNTER 2019-10-02 16:53 | Emergency (ER) | payer MEDICARE, OTHER, SELFPAY ==
[2019-10-02 17:26] VITALS: BP 137/83; PULSE 74; RESP 18; TEMP 36.8; O2SAT 94; BMI 27.6
[2019-10-02 18:00] VITALS: BP 140/69; PULSE 75; RESP 18; O2SAT 97
--- NOTE | 2019-10-02 18:42 | ED_ITS ---
HPI - Nausea/Vomiting/Diarrhea General Chief complaint: Nausea/Vomiting/Diarrhea Stated complaint: NVD Time Seen by Provider: 10/02/19 18:42 Source: patient Mode of arrival: Family Vehicle Limitations: no limitations History of Present Illness HPI Narrative: 74-year-old female comes in with complaint of diarrhea. Patient denies any fevers. She denies any nausea, or vomiting, she denies abdominal pain. Patient has had diarrhea. She states 1st episode was on Friday, she has had about 3 episodes through the week. Today she had a large episode this afternoon. She has not had any since. She did try some Imodium afterwards. She denies any black or bloody stool. Patient states that she was started on prednisone on Friday. She states the diarrhea started before the prednisone. The prednisone was for a cough which she states is improving. She denies any chest pain or shortness of breath. Patient does take medication for hypertension, dyslipidemia as well as mood and insomnia. Patient states that s he had hernia repair at 16 months and in grade, she has had a mastectomy for breast cancer along with chemo and radiation and states she just had surveillance last week and everything came back negative. Patient has also had a tonsillectomy. She denies tobacco, alcohol or illicit. Related Data Home Medications Medication Instructions Recorded Confirmed carvedilol [Coreg] 6.25 mg PO BID #0 02/25/17 anastrozole 1 mg tablet 1 mg PO DAILY 12/24/18 12/24/18 aripiprazole 5 mg tablet 5 mg PO DAILY 12/24/18 12/24/18 atorvastatin 80 mg tablet 80 mg PO BEDTIME 12/24/18 12/24/18 betamethasone dipropionate 0.05 % 1 applictn TOP BID PRN 12/24/18 12/24/18 topical cream carvedilol 3.125 mg tablet 3.125 mg PO BID 12/24/18 12/24/18 lactobacillus combination no.8 3 3,000 mmu cells PO DAILY 12/24/18 12/24/18 billion cell capsule lisinopril 5 mg tablet 5 mg PO BID tab 12/24/18 12/24/18 lorazepam 0.5 mg tablet 0.5 mg PO BEDTIME PRN 12/24/18 12/24/18 multivitamin 1 tab PO DAILY 12/24/18 12/24/18 paroxetine HCl 40 mg tablet 60 mg PO DAILY tab 12/24/18 12/24/18 trazodone 100 mg tablet 300 mg PO BEDTIME tab 12/24/18 12/24/18 venlafaxine 75 mg capsule,extended 75 mg PO DAILY 12/24/18 12/24/18 release 24 hr Allergies Allergy/AdvReac Type Severity Reaction Status Date / Time latex [LATEX] Allergy Mild erythema Verified 01/21/19 10:06 dexamethasone [DEXAMETHASONE] AdvReac Severe depression, 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/21/19 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 psychotic Penicillins [PENICILLINS] AdvReac Severe Diarrhea Verified 01/21/19 10:06 Sulfa (Sulfonamide AdvReac Vomiting Verified 10/02/19 17:31 Antibiotics) Review of Systems Review of Systems ROS Unobtainable: All systems reviewed & are unremarkable except as noted in HPI and below Patient History Medical History (Updated 10/02/19 @ 20:10 by Olivia Hargrove DO) Dyslipidemia (Acute) Hypertension (Acute) Mood disorder (Acute) Surgical History History of cataract removal with insertion of prosthetic lens History of tonsillectomy Status post breast lumpectomy Status post hernia repair Family History Father Hypertension Heart disease Mother Hypertension Social History household members: none education level: college occupational status: previously employed Smoking Status: Never smoker Smoking Status: Never smoker alcohol intake frequency: 0-2 drinks per day Substance Use Type: does not use Exam Narrative Exam Narrative: GENERAL: Alert and oriented x three, well-appearing elderly female in mild distress. HEENT: Head normocephalic, atraumatic, EOMI, pupils reactive, face symmetric, moist mucous membranes NECK: Supple, full range of motion CARDIOVASCULAR: Regular rate and rhythm without murmurs, rubs or gallops. RESPIRATORY: Breath sounds equal bilaterally, no wheezes rales or rhonchi. ABDOMEN: Soft, nontender. Nondistended. Normoactive bowel sounds all 4 quadrants. No guarding or rebound, rigidity, no mass : No CVA tenderness EXTREMITIES: Normal range of motion, no clubbing or edema. Neurovascularly intact NEUROLOGICAL: Cranial nerves II through XII grossly intact. Moving all extremities SKIN: Warm, dry, no petechiae, no rashes or lesions. Initial Vital Signs Initial Vital Signs: Vital Signs Temperature 98.3 F 10/02/19 17:26 Pulse Rate 74 10/02/19 17:26 Respiratory Rate 18 10/02/19 17:26 Blood Pressure 137/83 10/02/19 17:26 Pulse Oximetry 94 10/02/19 17:26 Course Orders Ordered: ED Orders 10/02/19 18:52 XR abdomen min 2V Stat 10/02/19 19:17 Urine Culture Stat Urine Microscopic Stat 10/02/19 19:18 Complete Blood Count AUTO DIFF Stat Comprehensive Metabolic Panel Stat Lipase Stat Vital Signs Vital signs: Vital Signs - 8 hr 10/02/19 17:26 10/02/19 18:00 10/02/19 19:30 Temperature 98.3 F Pulse Rate 74 75 81 Respiratory Rate 18 18 Blood Pressure 137/83 Blood Pressure [Left Arm] 140/69 142/85 H Pulse Oximetry 94 97 97 MDM - Nausea/Vomiting/Diarrhea Lab Data Attestation: I reviewed the patient's lab results. Result diagrams: 10/02/19 19:18 10/02/19 19:18 Labs: Lab Results 10/02/19 10/02/19 10/02/19 Range/Units 19:17 19:18 19:18 WBC 6.9 (4.5-11.0) X10^3/uL RBC 4.05 (4.0-5.2) X10^6/uL Hgb 13.2 (12.0-16.0) g/dL Hct 38.5 (36-46) % MCV 95.0 (80-100) fL MCH 32.5 (26-34) PG MCHC 34.2 (30-36) % RDW 13.5 (11.6-14.8) % Plt Count 353 (150-400) X10^3/uL Neut % (Auto) 75.8 H (50-75) % Lymph % (Auto) 18.8 L (25-40) % Evangeline % (Auto) 4.6 (3-14) % Eos % (Auto) 0.0 L (2-4) % Baso % (Auto) 0.8 (0-2) % Neut # (Auto) 5200 (8447-5884) /uL Lymph # (Auto) 1300 (0344-8918) /uL Evangeline # (Auto) 300 (0-900) /uL Eos # (Auto) 0 (0-450) /uL Baso # (Auto) 100 (0-100) /uL Sodium 138 (137-145) mmol/L Potassium 3.6 (3.4-5.1) mmol/L Chloride 100 (98-107) mmol/L Carbon Dioxide 29 (22-32) mmol/L BUN 15 (7-17) mg/dL Creatinine 0.70 (0.52-1.04) mg/dL Estimated GFR > 60.0 (>60) mL/min BUN/Creatinine Ratio 21.4 (6-22) Glucose 102 (80-110) mg/dL Calcium 8.6 (8.4-10.2) mg/dL Total Bilirubin 0.5 (0.2-1.3) mg/dL AST 35 (14-36) IU/L ALT 39 H (<35) IU/L Alkaline Phosphatase 85 (38-126) U/L Total Protein 7.3 (6.3-8.2) g/dL Albumin 4.0 (3.5-5.0) g/dL Globulin 3.3 (1.7-4.1) g/dL Albumin/Globulin Ratio 1.2 (1.0-2.8) Lipase 56 (23-300) U/L Urine RBC 0-1/hpf (0-5/HPF) Urine WBC 0-1/hpf (0-5/HPF) Ur Squamous Epith Cells None seen (0-5/HPF) Urine Bacteria None seen (None) Ur Culture Indicated? Specimen cultured Urine Dip Bedside Urine Glucose Negative Bedside Urine Bilirubin - Negative Bedside Urine Ketone ++ 40 Urine Specific [place] 1.015 Bedside Urine Occult Blood +/- Bedside Urine pH 6.0 Bedside Urine Protein +/- 15 Bedside Urine Urobilinogen +/- 1mg Bedside Urine Nitrite - Negative Bedside Urine Leukocytes +/- 15 Esterase Imaging Data Abdominal x-ray: Radiologist's impression: [address] [address] XRay Report Signed Patient: Radha Cooper EMR#: [id number] : [id number]:[id number] Age/Sex: 74 / FDate of Service: 10/02/19 Loc: ED Accession Number: [id number] Procedure: XR abdomen min 2V Ordering Provider: Olivia Hargrove D.O. PROCEDURE: XR ABDOMEN MIN 2V INDICATIONS: diarrhea intermittent since Friday TECHNIQUE: 2 views of the abdomen were acquired. COMPARISON: None. FINDINGS: Surgical changes and devices: None. Bowel: No pneumoperitoneum. The bowel gas pattern is normal. Soft tissues: No masses; visualized solid organ contours appear normal in size. No suspicious abdominal calcifications. Bones: Severe degenerative changes are present throughout the lumbar spine. IMPRESSION: No acute intra-abdominal findings. Dictated by: Marlena Sparks M.D. on 10/02/2019 at 19:27 Approved by: Marlena Sparks M.D. on 10/02/2019 at 19:27 [facility] Narrative Medical decision making narrative: Patient comes in with complaint of intermittent diarrhea without any other symptoms. Diarrhea does not mucousy or bloody in any form. Patient has not had abdominal pain, no fevers or nausea or vomiting. Labs do not show any major abnormalities, urine does show little bit ketones, it does have some changes but on microscopy appears to probably be contaminated. Patient's abdominal x-ray does not show any acute changes. Discu ssed with patient I think it's safe for her to return we discussed return precautions, that she can continue Imodium up to 4 tablets daily. If she has intermittent diarrhea with no other changes she could follow up with her primary care but if she has fevers, no abdominal pain, vomiting, black or bloody stools or other concerning changes she should return. Patient feels comfortable with this plan. Encouraged her to increase her hydration which she is comfortable with and states she likes water a lot. Discharge Plan Departure Patient Disposition: Home Clinical Impression: Diarrhea Discharge Date/Time: 10/02/19 20:37 Instructions: Diarrhea Activity Restrictions/Additional Instructions: Follow up with primary care in the next several days for recheck, call for an appointment on Friday. You may take Imodium 1-2 tablets after loose bowel movement, you may take a maximum of 4 tablets in 24 hours. You may wish to try a probiotic once daily to see if this helps with your loose stools. Return to the ER for fevers greater 100.4 F, persistent vomiting, new or worsening abdominal pain, flank pain, black or bloody stools or other new or concerning symptoms. Prescriptions: No Action carvedilol [Coreg] 6.25 MG tablet 6.25 mg PO BID Qty: 0 RF: 0 lisinopril 5 mg tablet 5 mg PO BID RF: 0 venlafaxine 75 mg capsule,extended release 24hr 75 mg PO DAILY RF: 0 carvedilol 3.125 mg tablet 3.125 mg PO BID RF: 0 aripiprazole 5 mg tablet 5 mg PO DAILY RF: 0 anastrozole 1 mg tablet 1 mg PO DAILY RF: 0 atorvastatin 80 mg tablet 80 mg PO BEDTIME RF: 0 lorazepam 0.5 mg tablet 0.5 mg PO BEDTIME PRN (Reason: Anxiety) RF: 0 paroxetine HCl 40 mg tablet 60 mg PO DAILY RF: 0 Adult Probiotic 3 billion cell capsule 3,000 mmu cells PO DAILY RF: 0 multivitamin tablet 1 tab PO DAILY RF: 0 trazodone 100 mg tablet 300 mg PO BEDTIME RF: 0 betamethasone dipropionate 0.05 % cream 1 applictn TOP BID PRN (Reason: Dry Skin) RF: 0 Referrals: Juany Wallis MD [Primary Care Provider] -
--- NOTE | 2019-10-02 18:52 | DI.RAD.S_ITS ---
PROCEDURE: XR ABDOMEN MIN 2V INDICATIONS: diarrhea intermittent since Friday TECHNIQUE: 2 views of the abdomen were acquired. COMPARISON: None. FINDINGS: Surgical changes and devices: None. Bowel: No pneumoperitoneum. The bowel gas pattern is normal. Soft tissues: No masses; visualized solid organ contours appear normal in size. No suspicious abdominal calcifications. Bones: Severe degenerative changes are present throughout the lumbar spine. IMPRESSION: No acute intra-abdominal findings. Dictated by: Marlena Sparks M.D. on 10/02/2019 at 19:27 Approved by: Marlena Sparks M.D. on 10/02/2019 at 19:27
[2019-10-02 19:25] LABS: Bacteria Urine None Seen
[2019-10-02 19:30] VITALS: BP 142/85; PULSE 81; O2SAT 97
[2019-10-02 19:30] LABS: Add Manual Diff / Slide Review NO; Basophils Absolute Auto 100 /uL (0-100); Basophils Percent Auto 0.8 % (0-2); Eosinophils Absolute Auto 0 /uL (0-450); Hematocrit 38.5 % (36-46); Hemoglobin 13.2 g/dL (12.0-16.0); Lymphocytes Absolute Auto 1300 /uL (1100-4500); Lymphocytes Percent Auto 18.8 % (25-40); Mean Corpuscular HGB Conc 34.2 % (30-36); Mean Corpuscular Hemoglobin 32.5 PG (26-34); Monocytes Absolute Auto 300 /uL (0-900); Monocytes Percent Auto 4.6 % (3-14); Neutrophils Absolute Auto 5200 /uL (1500-7000); Neutrophils Percent Auto 75.8 % (50-75); Platelet Count 353 X10^3/uL (150-400); Red Blood Cell Count 4.05 X10^6/uL (4.0-5.2); Red Cell Distribution Width 13.5 % (11.6-14.8); White Blood Cell Count 6.9 X10^3/uL (4.5-11.0)
[2019-10-02 19:35] LABS: Culture Indicated Urine Specimen Cultured; RBC Urine 0-1/HPF (0-5/HPF); Squamous Epithelial Cell Urine None Seen (0-5/HPF); WBC Urine 0-1/HPF (0-5/HPF)
[2019-10-02 19:39] LABS: Alanine Aminotransferase 39 IU/L (<35); Albumin Globulin Ratio 1.2 (1.0-2.8); Alkaline Phosphatase 85 U/L (38-126); Aspartate Aminotransferase 35 IU/L (14-36); BUN Creatinine Ratio 21.4 (6-22); Bilirubin Total 0.5 mg/dL (0.2-1.3); Blood Urea Nitrogen 15 mg/dL (7-17); Calcium 8.6 mg/dL (8.4-10.2); Carbon Dioxide 29 mmol/L (22-32); Chloride 100 mmol/L (98-107); Estimated Glomerular Filt Rate > 60.0 mL/min (>60); Globulin 3.3 g/dL (1.7-4.1); Glucose 102 mg/dL (80-110); HEMOLYSIS 17 (0-50); Lipase 56 U/L (23-300); Potassium 3.6 mmol/L (3.4-5.1); Sodium 138 mmol/L (137-145); Total Protein 7.3 g/dL (6.3-8.2)
[2019-10-02 20:00] VITALS: BP 145/66; PULSE 79; RESP 18; O2SAT 96
== END 2019-10-02 20:37 | disposition home or self-care (01) ==
PROVIDERS: Emergency Provider Emergency Medicine; PCP Internal Medicine
DX: R19.7 Diarrhea, unspecified (principal); E78.5 Hyperlipidemia, unspecified; I10 Essential (primary) hypertension
CPT/HCPCS: 36415; 74019; 80053; 81003; 81015; 83690; 85025; 87086; 99282; 99284

== ENCOUNTER 2019-10-05 13:45 | Outpatient (RCR) | payer MEDICARE, OTHER, SELFPAY ==
--- NOTE | 2019-08-17 12:37 | PT.OPPOC ---
Current Diagnoses Pain in right leg (08/19/19) Pain in left leg (08/19/19) Unsteadiness on feet (08/19/19) Visit Care Team Role Provider Type Juany Wallis MD Attending Provider Non-Staff Primary Care Provider Specialty: Medical Address: [address] [place] [address], [phone] Email: Plan Of Care PT-OP-T Assessment and Plan Start: 08/17/19 18:00 Freq: Status: Active Protocol: Document 08/17/19 10:30 [facility] (Rec: 08/17/19 19:07 [facility] [id number]) Physical Therapy Assessment Rehab Potential Rehabilitation Potential Good Evaluation Complexity Number of Personal Factors/Comorbidities 1-2 Number of Body Systems Impaired 1-2 Clinical Presentation at Evaluation Stable Impairments Impairments Activity Tolerance,Balance, Functional Activities, Functional Mobility,Gait,Pain, Posture,Soft Tissue Mobility, Strength Goals Five Impairment Difficulty with ascending and descending stairs Short Term Goal (STG) Ascend and descend stairs with use of handrail, step over step for 4 steps. STG Duration 09/18/19 Associate Professor Of Sociology Goal (LTG) Ascend and descend stairs with use of handrail, step over step for 18 steps. LTG Duration 10/19/19 Four Impairment Loss of confidence with daily activities - ABC scoring Long-Term Goal (LTG) Improving scoring to moderate level functioning (score of 50 -80) LTG Duration 10/19/19 Three Impairment Low LEFS Score Short Term Goal (STG) Improve score of LEFs from 60- 79% impaired to 40-59% STG Duration 09/18/19 Long-Term Goal (LTG) Improve score of LEFs to 20-39 % impaired. LTG Duration 10/19/19 Two Impairment Loss of balance as noted with [employer] Balance Testing Long-Term Goal (LTG) Improve scoring to 1-19% impaired. LTG Duration 10/19/19 One Impairment Decrease ADL functional activity level - FAAM scoring Short Term Goal (STG) Improve score from 60-79 restriced to 40-59% STG Duration 09/18/19 Associate Professor Of Sociology Goal (LTG) Improve score to 20-39% restricted LTG Duration 10/19/19 Assessment Summary Assessment Patient presents with severe pain that occurs in the back of both thighs. This has been ongoing for at least two years. Secondarily she has decrease strength, endurance and functional ability. Her overall confidence has also been affected causing fear of falling. Physical Therapy Plan Frequency and Duration Frequency of Treatment 2x/Week Duration of Treatment 8 weeks Plan of Care Start Date 08/17/19 Plan of Care End Date 10/19/19 Therapeutic Interventions Therapeutic Interventions Balance Training,Coordination Training,Gait Training,Home Exercise Program,Neuromuscular Re-education,Self-Care/Home Management,Soft Tissue Mobilization,Therapeutic Activities,Therapeutic Exercises,Vestibular Rehabilitation Next Visit Focus/Plan Next Note Type Treatment Note Next Visit Plan Establish HEP Plan of Care Dates Plan of Care Start Date 08/17/19 Plan of Care End Date 10/19/19
--- NOTE | 2019-08-17 19:07 | PT.OIE ---
Current Diagnoses Pain in right leg (08/17/19) Pain in left leg (08/17/19) Unsteadiness on feet (08/17/19) Past Surgical History (Last Reviewed 12/24/18 @ 13:34 by Beverly Ashraf MD) History of cataract removal with insertion of prosthetic lens History of tonsillectomy Status post breast lumpectomy Status post hernia repair Visit Care Team Role Provider Type Juayn Wallis MD Attending Provider Non-Staff Primary Care Provider Specialty: Medical Address: [address] [place] [address], [phone] Email: Physical Therapy Initial Evaluation PT-OP-A Visit Information Start: 08/17/19 18:00 Freq: Status: Active Protocol: Document 08/17/19 10:30 NFW (Rec: 08/17/19 19:07 NFW [id number]) Out-Patient Physical Therapy Visit Information Visit Information Visit Type Initial Evaluation Visit Start Time 10:30 Visit Stop Time 11:15 Total Visit Minutes 45 Visit Number 1 Evaluation Information Evaluation Date 08/17/19 PT-OP-B Current Condition Start: 08/17/19 18:00 Freq: Status: Active Protocol: Document 08/17/19 10:30 NFW (Rec: 08/17/19 19:07 NFW [id number]) Current Condition History of Current Condition Onset Date At least two years Current Complaints Pain back of both thighs. (no pain front of thighs) History of Current Condition Onset insidious. Treatment Goals Patient/Caregiver Goals Pt has fear of falling and would like to regain confidence with walking on her feet and performing her daily activities including her exercises at [facility]. Current Functional Impairments (Reported) Functional Limitations- ADL's Sleeps in recliner on main level to avoid going up 17 stairs to the bedroom and for personal reasons. Functional Limitations- Mobility/Gait Difficulty in going up and down curbs/steps if no handrails are available. Functional Limitations- Recreation/ Apprehensions to using the [employer] treadmill at [facility] due to difficulty stepping up and down from the treadmill. PT-OP-C Subjective Start: 08/17/19 18:00 Freq: Status: Active Protocol: Document 08/17/19 10:30 NFW (Rec: 08/17/19 19:07 NFW [id number]) OP-PT Subjective Patient Comments Patient Comments Pain reports pain in the back of her thighs that occurs in the mornings. Pain level will reach as high as a 10/10. Pain relieved by taking extra strength tylenol in ~ one hour . Patient Reported Progress Improving Patient Questionnaires ABC- Activity Specific Balance Confidence Scale ABC Score 42.5 ABC Functional Impairment 40 to <60% Impaired (Score 41- 60) Dizziness Handicap Inventory DHI Score 20 DHI Functional Impairment 20 to 39% Impaired (Score 20- 39) Foot & Ankle Ability Measure- ADL and Sports FAAM-ADL Score 34 FAAM-ADL Impairment 40 to 59% Impaired (Score 33- 49) FAAM-Sport Score 9 FAAM-Sport Impairment 60 to 79% Impaired (Score 6-11 ) Lower Extremity Functional Scale LEFS Score 27 LEFS Impairment 60 to 79% Impaired (Score 17- 31) PT-OP-D Balance Start: 08/17/19 18:00 Freq: Status: Active Protocol: Document 08/17/19 10:30 NFW (Rec: 08/17/19 19:07 NFW [id number]) [place] Balance Assessment Evaluation Sitting to Standing Ability Independent w/Hands Unsupported Stance Safely- 2 minutes Sitting Unsupported, Feet on Floor Safely- 2 minutes Standing to Sitting Ability Assist, Control w/Hands Transfer Ability Safely, Hand Use Unsupported Stance- Eyes Closed Safely, 10 seconds Unsupported Stance- Eyes Open Independent, 1 minute Reaching Forward Standing Safely, 5 inches Pick- Up Object From Floor Independent/Safe Look Behind Shoulder - Standing Shifts Weight Well Turning 360 Degrees Turns Bilateral, < 4 secs Unsupported Stance, Alternating Feet on 4 Steps w/Supervision Stair Unsupported Tandem Stance Balance Lost- Step/Stand Unilateral Leg Stance Lifts Leg/Unable to Hold Total Score [place] Total Score (out of 56 points) 43 [place] Impairment Rating 20 to 39% Impaired (Score 34- 44) PT-OP-E Functional Tests Start: 08/17/19 18:00 Freq: Status: Active Protocol: Document 08/17/19 10:30 NFW (Rec: 08/17/19 19:07 NFW [id number]) Functional Tests Dynamic Gait Index (DGI) Score 21 DGI Impairment Rating 1 to <20% Impaired (Score 20- 23) PT-OP-F Manual Assessment Start: 08/17/19 18:00 Freq: Status: Active Protocol: Document 08/17/19 10:30 NFW (Rec: 08/17/19 19:07 NFW [id number]) Manual Assessments Soft Tissue Assessment Soft Tissue Mobility Assessment Soft tissue tightness bilateral hamstrings. PT-OP-G Mobility & Gait Start: 08/17/19 18:00 Freq: Status: Active Protocol: Document 08/17/19 10:30 NFW (Rec: 08/17/19 19:07 NFW [id number]) OP Gait Assessment Gait Gait Assistance Required: Independent Assistive Devices Assistive Device None Factors Limiting Gait Function Factors Limiting Gait Function Abnormal Tonal Influences, Decreased Activity Tolerance, Pain,Poor Balance Comments Gait Comments Right medial list in ambulation, min to no arms swing. Has normal stride lengths. Stair Climbing Evaluation Evaluation Level of Assist On Stairs Independent Devices Stair Climbing Assistive Devices Left Railing Technique/Endurance Stair Climbing Direction Ascend and Descend Stair Climbing Technique Step to Step Number of Steps Climbed 6 Stair Climbing Set # Repetitions (reps) 2 Comments Stair Climbing Comments Step to gait leading with left in ascension, and right with descension. PT-OP-H Neuro Start: 08/17/19 18:00 Freq: Status: Active Protocol: Document 08/17/19 10:30 NFW (Rec: 08/17/19 19:07 NFW [id number]) Sensation Evaluation Gross Sensation Gross Sensation WNL PT-OP-J Posture/Palpation/Skin Start: 08/17/19 18:00 Freq: Status: Active Protocol: Document 08/17/19 10:30 NFW (Rec: 08/17/19 19:07 NFW [id number]) Posture Evaluation Position Standing L-Spine Posture Flattened Arm Posture (L) Internally Rotated,(R) Internally Rotated Pelvis Posture Posterior Tilted Knee Posture (L) Genu Recurvatum,(R) Genu Recurvatum Ankle/Foot Posture (L) Calcaneal Eversion,(R) Calcaneal Eversion,(L) Forefoot Abducted,(R) Forefoot Abducted Foot Arch (L) No Arch,(R) No Arch Palpation Assessment Location One Palpation Location Post Thighs Palpation Details No real point tenderness. PT-OP-K Range of Motion Start: 08/17/19 18:00 Freq: Status: Active Protocol: Document 08/17/19 10:30 NFW (Rec: 08/17/19 19:07 NFW [id number]) Lumbar Spine Range of Motion Lumbar Spine Active Testing Position Standing Comments WFL Hip Goniometric Range of Motion Hip Right Passive Hip ROM WFL Yes Testing Position Supine Straight Leg Raise 70 Left Passive Hip ROM WFL Yes Testing Position Supine Straight Leg Raise 80 Hip ROM Limitations Hip ROM Limitations Soft Tissue Tightness PT-OP-M Strength Start: 08/17/19 18:00 Freq: Status: Active Protocol: Document 08/17/19 10:30 NFW (Rec: 08/17/19 19:07 NFW [id number]) Hip Strength Hip Manual Muscle Testing Right Flexion (L2) 4 Good Abduction 4 Good Left Flexion (L2) 4 Good Abduction 4 Good Knee Strength Knee Manual Muscle Testing Right Flexion (S2) 4 Good Extension (L3) 4 Good Left Flexion (S2) 4 Good Extension (L3) 4 Good Ankle/Foot Strength Ankle and Foot Manual Muscle Testing Right Dorsiflexion (L4) 5 Normal Plantarflexion (S1) 5 Normal Left Dorsiflexion (L4) 5 Normal Plantarflexion (S1) 5 Normal PT-OP-Q Treatments Start: 08/17/19 18:00 Freq: Status: Active Protocol: Document 08/17/19 10:30 NFW (Rec: 08/17/19 19:07 [facility] [id number]) Therapeutic Exercises Other Exercises 2 Other Exercise Name Home Up Time - up on feet every hour from 9 am to 7 pm for min of 5 min. Side bilateral 1 Other Exercise Name Review of exercises at [facility] - leg presses, hip abd/add, knee ext, UE row Side bilateral Resistance 1 plate Reps/Minutes 10 reps 3 sets PT-OP-T Assessment and Plan Start: 08/17/19 18:00 Freq: Status: Active Protocol: Document 08/17/19 10:30 NFW (Rec: 08/17/19 19:07 NFW [id number]) Physical Therapy Assessment Rehab Potential Rehabilitation Potential Good Evaluation Complexity Number of Personal Factors/Comorbidities 1-2 Number of Body Systems Impaired 1-2 Clinical Presentation at Evaluation Stable Impairments Impairments Activity Tolerance,Balance, Functional Activities, Functional Mobility,Gait,Pain, Posture,Soft Tissue Mobility, Strength Goals Five Impairment Difficulty with ascending and descending stairs Short Term Goal (STG) Ascend and descend stairs with use of handrail, step over step for 4 steps. STG Duration 09/18/19 Long-Term Goal (LTG) Ascend and descend stairs with use of handrail, step over step for 18 steps. LTG Duration 10/19/19 Four Impairment Loss of confidence with daily activities - ABC scoring Long-Term Goal (LTG) Improving scoring to moderate level functioning (score of 50 -80) LTG Duration 10/19/19 Three Impairment Low LEFS Score Short Term Goal (STG) Improve score of LEFs from 60- 79% impaired to 40-59% STG Duration 09/18/19 [employer] Process Specialist Goal (LTG) Improve score of LEFs to 20-39 % impaired. LTG Duration 10/19/19 Two Impairment Loss of balance as noted with [place] Balance Testing Welding Process Specialist Goal (LTG) Improve scoring to 1-19% impaired. LTG Duration 10/19/19 One Impairment Decrease ADL functional activity level - FAAM scoring Short Term Goal (STG) Improve score from 60-79 restriced to 40-59% STG Duration 09/18/19 Long-Term Goal (LTG) Improve score to 20-39% restricted LTG Duration 10/19/19 Assessment Summary Assessment Patient presents with severe pain that occurs in the back of both thighs. This has been ongoing for at least two years. Secondarily she has decrease strength, endurance and functional ability. Her overall confidence has also been affected causing fear of falling. Physical Therapy Plan Frequency and Duration Frequency of Treatment 2x/Week Duration of Treatment 8 weeks Plan of Care Start Date 08/17/19 Plan of Care End Date 10/19/19 Therapeutic Interventions Therapeutic Interventions Balance Training,Coordination Training,Gait Training,Home Exercise Program,Neuromuscular Re-education,Self-Care/Home Management,Soft Tissue Mobilization,Therapeutic Activities,Therapeutic Exercises,Vestibular Rehabilitation Next Visit Focus/Plan Next Note Type Treatment Note Next Visit Plan Establish HEP
--- NOTE | 2019-08-19 12:15 | PT.OTN ---
Current Diagnoses Pain in right leg (08/19/19) Pain in left leg (08/19/19) Unsteadiness on feet (08/19/19) Physical Therapy Treatment Note PT-OP-A Visit Information Start: 08/17/19 18:00 Freq: Status: Active Protocol: Document 08/19/19 10:30 NFW (Rec: 08/19/19 12:15 NFW [id number]) Out-Patient Physical Therapy Visit Information Visit Information Visit Type Treatment Note Visit Start Time 10:30 Visit Stop Time 11:14 Total Visit Minutes 44 Visit Number 2 PT-OP-B Current Condition Start: 08/17/19 18:00 Freq: Status: Active Protocol: Document 08/17/19 10:30 NFW (Rec: 08/17/19 19:07 NFW [id number]) Current Condition History of Current Condition Onset Date At least two years Current Complaints Pain back of both thighs. (no pain front of thighs) History of Current Condition Onset insidious. Treatment Goals Patient/Caregiver Goals Pt has fear of falling and would like to regain confidence with walking on her feet and performing her daily activities including her exercises at [facility]. Current Functional Impairments (Reported) Functional Limitations- ADL's Sleeps in recliner on main level to avoid going up 17 stairs to the bedroom and for personal reasons. Functional Limitations- Mobility/Gait Difficulty in going up and down curbs/steps if no handrails are available. Functional Limitations- Recreation/ Apprehensions to using the [employer] treadmill at [facility] due to difficulty stepping up and down from the treadmill. PT-OP-C Subjective Start: 08/17/19 18:00 Freq: Status: Active Protocol: Document 08/19/19 10:30 NFW (Rec: 08/19/19 12:15 NFW [id number]) OP-PT Subjective Patient Comments Patient Comments Pain in back of thighs remains the same. Noted when she first awakens in the morning. Relieved with Xstrength Tylenol. Did go to [facility] yesterday and followed through with exercises instructed the previous day. PT-OP-D Balance Start: 08/17/19 18:00 Freq: Status: Active Protocol: Document 08/17/19 10:30 NFW (Rec: 08/17/19 19:07 NFW [id number]) [place] Balance Assessment Evaluation Sitting to Standing Ability Independent w/Hands Unsupported Stance Safely- 2 minutes Sitting Unsupported, Feet on Floor Safely- 2 minutes Standing to Sitting Ability Assist, Control w/Hands Transfer Ability Safely, Hand Use Unsupported Stance- Eyes Closed Safely, 10 seconds Unsupported Stance- Eyes Open Independent, 1 minute Reaching Forward Standing Safely, 5 inches Pick- Up Object From Floor Independent/Safe Look Behind Shoulder - Standing Shifts Weight Well Turning 360 Degrees Turns Bilateral, < 4 secs Unsupported Stance, Alternating Feet on 4 Steps w/Supervision Stair Unsupported Tandem Stance Balance Lost- Step/Stand Unilateral Leg Stance Lifts Leg/Unable to Hold Total Score [place] Total Score (out of 56 points) 43 [place] Impairment Rating 20 to 39% Impaired (Score 34- 44) PT-OP-E Functional Tests Start: 08/17/19 18:00 Freq: Status: Active Protocol: Document 08/17/19 10:30 NFW (Rec: 08/17/19 19:07 [facility] [id number]) Functional Tests Dynamic Gait Index (DGI) Score 21 DGI Impairment Rating 1 to <20% Impaired (Score 20- 23) PT-OP-F Manual Assessment Start: 08/17/19 18:00 Freq: Status: Active Protocol: Document 08/17/19 10:30 NFW (Rec: 08/17/19 19:07 [facility] [id number]) Manual Assessments Soft Tissue Assessment Soft Tissue Mobility Assessment Soft tissue tightness bilateral hamstrings. PT-OP-G Mobility & Gait Start: 08/17/19 18:00 Freq: Status: Active Protocol: Document 08/17/19 10:30 NFW (Rec: 08/17/19 19:07 [facility] [id number]) OP Gait Assessment Gait Gait Assistance Required: Independent Assistive Devices Assistive Device None Factors Limiting Gait Function Factors Limiting Gait Function Abnormal Tonal Influences, Decreased Activity Tolerance, Pain,Poor Balance Comments Gait Comments Right medial list in ambulation, min to no arms swing. Has normal stride lengths. Stair Climbing Evaluation Evaluation Level of Assist On Stairs Independent Devices Stair Climbing Assistive Devices Left Railing Technique/Endurance Stair Climbing Direction Ascend and Descend Stair Climbing Technique Step to Step Number of Steps Climbed 6 Stair Climbing Set # Repetitions (reps) 2 Comments Stair Climbing Comments Step to gait leading with left in ascension, and right with descension. PT-OP-H Neuro Start: 08/17/19 18:00 Freq: Status: Active Protocol: Document 08/17/19 10:30 NFW (Rec: 08/17/19 19:07 NFW [id number]) Sensation Evaluation Gross Sensation Gross Sensation WNL PT-OP-J Posture/Palpation/Skin Start: 08/17/19 18:00 Freq: Status: Active Protocol: Document 08/17/19 10:30 NFW (Rec: 08/17/19 19:07 NFW [id number]) Posture Evaluation Position Standing L-Spine Posture Flattened Arm Posture (L) Internally Rotated,(R) Internally Rotated Pelvis Posture Posterior Tilted Knee Posture (L) Genu Recurvatum,(R) Genu Recurvatum Ankle/Foot Posture (L) Calcaneal Eversion,(R) Calcaneal Eversion,(L) Forefoot Abducted,(R) Forefoot Abducted Foot Arch (L) No Arch,(R) No Arch Palpation Assessment Location One Palpation Location Post Thighs Palpation Details No real point tenderness. PT-OP-K Range of Motion Start: 08/17/19 18:00 Freq: Status: Active Protocol: Document 08/17/19 10:30 NFW (Rec: 08/17/19 19:07 NFW [id number]) Lumbar Spine Range of Motion Lumbar Spine Active Testing Position Standing Comments WFL Hip Goniometric Range of Motion Hip Right Passive Hip ROM WFL Yes Testing Position Supine Straight Leg Raise 70 Left Passive Hip ROM WFL Yes Testing Position Supine Straight Leg Raise 80 Hip ROM Limitations Hip ROM Limitations Soft Tissue Tightness PT-OP-M Strength Start: 08/17/19 18:00 Freq: Status: Active Protocol: Document 08/17/19 10:30 NFW (Rec: 08/17/19 19:07 NFW [id number]) Hip Strength Hip Manual Muscle Testing Right Flexion (L2) 4 Good Abduction 4 Good Left Flexion (L2) 4 Good Abduction 4 Good Knee Strength Knee Manual Muscle Testing Right Flexion (S2) 4 Good Extension (L3) 4 Good Left Flexion (S2) 4 Good Extension (L3) 4 Good Ankle/Foot Strength Ankle and Foot Manual Muscle Testing Right Dorsiflexion (L4) 5 Normal Plantarflexion (S1) 5 Normal Left Dorsiflexion (L4) 5 Normal Plantarflexion (S1) 5 Normal PT-OP-Q Treatments Start: 08/17/19 18:00 Freq: Status: Active Protocol: Document 08/19/19 10:30 NFW (Rec: 08/19/19 12:15 NFW [id number]) Cardio Equipment Recumbent Elliptical (Biodex) Duration (Minutes) 2 Resistance 0 Other Uncomfortable for pt at knees, switched to recumbent bike. Recumbent Bicycle Duration (Minutes) 5 Resistance 4 Seat Position 5 Other maintaining 60 RPM Gym Equipment Shuttle Balance 1 Details Standing light balance assist with hands Comments Standing without hands, looking side to side, raising one arm overhead then other. Rest breaks with using UE for balance then hip circles and sways side to side Therapeutic Exercises Supine Exercises 8 Supine Exercise Name Isometric hip adduction Side bilateral Equipment Used blue ball Reps/Minutes 10 x, 5 sec holds 7 Supine Exercise Name Isometric hip abduction Side bilateral Resistance Level 2 Equipment Used Tband Reps/Minutes 10 x, 5 sec holds 6 Supine Exercise Name Bridge Side bilateral Reps/Minutes 10 x, 5 sec holds Standing Exercises 4 Standing Exercise Name Backwards Walking Equipment Used Parallel Bars - for safety, did not use hands Reps/Minutes 5 x 3 Standing Exercise Name Side Walking, both directions Side bilateral Equipment Used Parallel Bars - for safety, did not use hands Reps/Minutes 10 x 2 Standing Exercise Name Marches Side bilateral Equipment Used Parallel Bars - hands for balance assist Reps/Minutes 10 x 1 Standing Exercise Name Step Ups Side bilateral Equipment Used 4 & 7 steps with ayaan hand rails Reps/Minutes 4 x only, difficult activity, may need to hold on this exercise. Comments cuing for proper wt shift and stabilization PT-OP-T Assessment and Plan Start: 08/17/19 18:00 Freq: Status: Active Protocol: Document 08/19/19 10:30 NFW (Rec: 08/19/19 12:15 NFW [id number]) Physical Therapy Assessment Assessment Summary Assessment Pacing with all exercises. Revealing weakness pelvic girdle muscles and quadraceps. Good toleration of exercise session. Physical Therapy Plan Next Visit Focus/Plan Next Note Type Treatment Note Next Visit Plan Add Shuttle Recovery
--- NOTE | 2019-08-24 14:38 | PT.OTN ---
Current Diagnoses Pain in right leg (08/24/19) Pain in left leg (08/24/19) Unsteadiness on feet (08/24/19) Physical Therapy Treatment Note PT-OP-A Visit Information Start: 08/17/19 18:00 Freq: Status: Active Protocol: Document 08/24/19 14:38 SP (Rec: 08/24/19 16:00 SP [email or web address]) Out-Patient Physical Therapy Visit Information Visit Information Visit Type Treatment Note Visit Start Time 13:48 Visit Stop Time 14:38 Total Visit Minutes 50 Visit Number 3 Number of SIDER MECHANIC Visits 1 PT-OP-B Current Condition Start: 08/17/19 18:00 Freq: Status: Active Protocol: Document 08/17/19 10:30 NFW (Rec: 08/17/19 19:07 NFW [id number]) Current Condition History of Current Condition Onset Date At least two years Current Complaints Pain back of both thighs. (no pain front of thighs) History of Current Condition Onset insidious. Treatment Goals Patient/Caregiver Goals Pt has fear of falling and would like to regain confidence with walking on her feet and performing [facility]. Current Functional Impairments (Reported) Functional Limitations- ADL's Sleeps in recliner on main level to avoid going up 17 stairs to the bedroom and for personal reasons. Functional Limitations- Mobility/Gait Difficulty in going up and down curbs/steps if no handrails are available. Functional Limitations- Recreation/ Apprehensions to using the [employer] treadmill at [facility] due to difficulty stepping up and down from the treadmill. PT-OP-C Subjective Start: 08/17/19 18:00 Freq: Status: Active Protocol: Document 08/24/19 14:38 SP (Rec: 08/24/19 16:00 SP [email or web address]) OP-PT Subjective Patient Comments Patient Comments Pt reported still having pain in the back of her thighs 5/10 still the same, especially first thing in the am. Wants to add shuttle press today during tx and goal to get better stepping up on TM at gym (no hand rail) and managing stairs. PT-OP-D Balance Start: 08/17/19 18:00 Freq: Status: Active Protocol: Document 08/17/19 10:30 NFW (Rec: 08/17/19 19:07 NFW [id number]) [place] Balance Assessment Evaluation Sitting to Standing Ability Independent w/Hands Unsupported Stance Safely- 2 minutes Sitting Unsupported, Feet on Floor Safely- 2 minutes Standing to Sitting Ability Assist, Control w/Hands Transfer Ability Safely, Hand Use Unsupported Stance- Eyes Closed Safely, 10 seconds Unsupported Stance- Eyes Open Independent, 1 minute Reaching Forward Standing Safely, 5 inches Pick- Up Object From Floor Independent/Safe Look Behind Shoulder - Standing Shifts Weight Well Turning 360 Degrees Turns Bilateral, < 4 secs Unsupported Stance, Alternating Feet on 4 Steps w/Supervision Stair Unsupported Tandem Stance Balance Lost- Step/Stand Unilateral Leg Stance Lifts Leg/Unable to Hold Total Score [place] Total Score (out of 56 points) 43 [place] Impairment Rating 20 to 39% Impaired (Score 34- 44) PT-OP-E Functional Tests Start: 08/17/19 18:00 Freq: Status: Active Protocol: Document 08/17/19 10:30 NFW (Rec: 08/17/19 19:07 [facility] [id number]) Functional Tests Dynamic Gait Index (DGI) Score 21 DGI Impairment Rating 1 to <20% Impaired (Score 20- 23) PT-OP-F Manual Assessment Start: 08/17/19 18:00 Freq: Status: Active Protocol: Document 08/17/19 10:30 NFW (Rec: 08/17/19 19:07 [facility] [id number]) Manual Assessments Soft Tissue Assessment Soft Tissue Mobility Assessment Soft tissue tightness bilateral hamstrings. PT-OP-G Mobility & Gait Start: 08/17/19 18:00 Freq: Status: Active Protocol: Document 08/17/19 10:30 NFW (Rec: 08/17/19 19:07 [facility] [id number]) OP Gait Assessment Gait Gait Assistance Required: Independent Assistive Devices Assistive Device None Factors Limiting Gait Function Factors Limiting Gait Function Abnormal Tonal Influences, Decreased Activity Tolerance, Pain,Poor Balance Comments Gait Comments Right medial list in ambulation, min to no arms swing. Has normal stride lengths. Stair Climbing Evaluation Evaluation Level of Assist On Stairs Independent Devices Stair Climbing Assistive Devices Left Railing Technique/Endurance Stair Climbing Direction Ascend and Descend Stair Climbing Technique Step to Step Number of Steps Climbed 6 Stair Climbing Set # Repetitions (reps) 2 Comments Stair Climbing Comments Step to gait leading with left in ascension, and right with descension. PT-OP-H Neuro Start: 08/17/19 18:00 Freq: Status: Active Protocol: Document 08/17/19 10:30 NFW (Rec: 08/17/19 19:07 NFW [id number]) Sensation Evaluation Gross Sensation Gross Sensation WNL PT-OP-J Posture/Palpation/Skin Start: 08/17/19 18:00 Freq: Status: Active Protocol: Document 08/17/19 10:30 NFW (Rec: 08/17/19 19:07 NFW [id number]) Posture Evaluation Position Standing L-Spine Posture Flattened Arm Posture (L) Internally Rotated,(R) Internally Rotated Pelvis Posture Posterior Tilted Knee Posture (L) Genu Recurvatum,(R) Genu Recurvatum Ankle/Foot Posture (L) Calcaneal Eversion,(R) Calcaneal Eversion,(L) Forefoot Abducted,(R) Forefoot Abducted Foot Arch (L) No Arch,(R) No Arch Palpation Assessment Location One Palpation Location Post Thighs Palpation Details No real point tenderness. PT-OP-K Range of Motion Start: 08/17/19 18:00 Freq: Status: Active Protocol: Document 08/17/19 10:30 NFW (Rec: 08/17/19 19:07 NFW [id number]) Lumbar Spine Range of Motion Lumbar Spine Active Testing Position Standing Comments WFL Hip Goniometric Range of Motion Hip Right Passive Hip ROM WFL Yes Testing Position Supine Straight Leg Raise 70 Left Passive Hip ROM WFL Yes Testing Position Supine Straight Leg Raise 80 Hip ROM Limitations Hip ROM Limitations Soft Tissue Tightness PT-OP-M Strength Start: 08/17/19 18:00 Freq: Status: Active Protocol: Document 08/17/19 10:30 NFW (Rec: 08/17/19 19:07 NFW [id number]) Hip Strength Hip Manual Muscle Testing Right Flexion (L2) 4 Good Abduction 4 Good Left Flexion (L2) 4 Good Abduction 4 Good Knee Strength Knee Manual Muscle Testing Right Flexion (S2) 4 Good Extension (L3) 4 Good Left Flexion (S2) 4 Good Extension (L3) 4 Good Ankle/Foot Strength Ankle and Foot Manual Muscle Testing Right Dorsiflexion (L4) 5 Normal Plantarflexion (S1) 5 Normal Left Dorsiflexion (L4) 5 Normal Plantarflexion (S1) 5 Normal PT-OP-Q Treatments Start: 08/17/19 18:00 Freq: Status: Active Protocol: Document 08/24/19 14:38 SP (Rec: 08/24/19 16:00 SP [email or web address]) Cardio Equipment Recumbent Bicycle Duration (Minutes) 5 Resistance 4 Seat Position 5 Other maintaining 60 RPM Gym Equipment Shuttle Recovery shuttle recovery Details BLE Resistance 50# Shuttle Recovery Platform Stable Reps/Time 2x10 Therapeutic Exercises Supine Exercises 6 Supine Exercise Name Bridge Side bilateral Equipment Used ball between knees Reps/Minutes 10 x, 5 sec holds 5 Supine Exercise Name DKFO Resistance level 1 TB Reps/Minutes 2x10 Standing Exercises sit to stand Equipment Used 22 raised table Reps/Minutes 2x5 Comments Use of B UE, cued hip hinge forward, heel press, glut facilitation 1 Standing Exercise Name Step Ups Side bilateral Equipment Used 4 & 7 steps with ayaan hand rails Reps/Minutes 4 x only, difficult activity, may need to hold on this exercise. Comments cuing for proper wt shift and stabilization, glut facilitation PT-OP-R Modalities Start: 08/17/19 18:00 Freq: Status: Active Protocol: Document 08/24/19 14:38 SP (Rec: 08/24/19 16:00 SP [email or web address]) Hot Pack/Cold Pack Treatment MHP Location HS Patient Position Prone Treatment Duration (minutes) 10 Patient Tolerance Good Comments back of thighs warmed up now, better PT-OP-T Assessment and Plan Start: 08/17/19 18:00 Freq: Status: Active Protocol: Document 08/24/19 14:38 SP (Rec: 08/24/19 16:00 SP [email or web address]) Physical Therapy Assessment Assessment Summary Assessment Tx focused on HEP review and glut facilitation to allow for sit to stand and work toward stair mgt with decreased UE support, improved 4 step ups, 6 step required heavier UE support. Physical Therapy Plan Frequency and Duration Frequency of Treatment 2x/Week Duration of Treatment 8 weeks Plan of Care Start Date 08/17/19 Plan of Care End Date 10/19/19 Therapeutic Interventions Therapeutic Interventions Balance Training,Coordination Training,Gait Training,Home Exercise Program,Neuromuscular Re-education,Self-Care/Home Management,Soft Tissue Mobilization,Therapeutic Activities,Therapeutic Exercises,Vestibular Rehabilitation Next Visit Focus/Plan Next Note Type Treatment Note Next Visit Plan Review HEP, continue progress balance, LE strengthening.
--- NOTE | 2019-08-26 18:08 | PT.OTN ---
Current Diagnoses Pain in right leg (08/26/19) Pain in left leg (08/26/19) Unsteadiness on feet (08/26/19) Physical Therapy Treatment Note PT-OP-A Visit Information Start: 08/17/19 18:00 Freq: Status: Active Protocol: Document 08/26/19 16:50 MB (Rec: 08/26/19 17:40 MB [id number]) Out-Patient Physical Therapy Visit Information Visit Information Visit Type Treatment Note Visit Start Time 16:50 Visit Stop Time 17:30 Total Visit Minutes 40 Visit Number 4 Number of CONDEMNATION ENGINEER Visits 1 PT-OP-B Current Condition Start: 08/17/19 18:00 Freq: Status: Active Protocol: Document 08/17/19 10:30 NFW (Rec: 08/17/19 19:07 NFW [id number]) Current Condition History of Current Condition Onset Date At least two years Current Complaints Pain back of both thighs. (no pain front of thighs) History of Current Condition Onset insidious. Treatment Goals Patient/Caregiver Goals Pt has fear of falling and would like to regain confidence with walking on her feet and performing [facility] daily [facility] Current Functional Impairments (Reported) Functional Limitations- ADL's Sleeps in recliner on main level to avoid going up 17 stairs to the bedroom and for personal reasons. Functional Limitations- Mobility/Gait Difficulty in going up and down curbs/steps if no handrails are available. Functional Limitations- Recreation/ Apprehensions to using the [employer] treadmill at [facility] due to difficulty stepping up and down from the treadmill. PT-OP-C Subjective Start: 08/17/19 18:00 Freq: Status: Active Protocol: Document 08/26/19 16:50 MB (Rec: 08/26/19 17:40 MB [id number]) OP-PT Subjective Patient Comments Patient Comments Pt con't to report same pain in the back of her legs. She points to B hamstring area. When asked if she is on a cholesterol medication, she states yes and for 3 years. Her leg pain started about then. She occ has calf pain. She reports rolling muscle pain. She has not been worked up for restless leg. She was on chemo on 2013 and might have had cholesterol medication after that. Pt drinks 2 8 oz cups of water a day. She does not drink enough . She takes a estrogen chemo drug and may go off on Sep 2 as she has been on for 5 years . Pt had US of legs and no blood clots. Patient Reported Progress Same PT-OP-D Balance Start: 08/17/19 18:00 Freq: Status: Active Protocol: Document 08/17/19 10:30 NFW (Rec: 08/17/19 19:07 NFW [id number]) [place] Balance Assessment Evaluation Sitting to Standing Ability Independent w/Hands Unsupported Stance Safely- 2 minutes Sitting Unsupported, Feet on Floor Safely- 2 minutes Standing to Sitting Ability Assist, Control w/Hands Transfer Ability Safely, Hand Use Unsupported Stance- Eyes Closed Safely, 10 seconds Unsupported Stance- Eyes Open Independent, 1 minute Reaching Forward Standing Safely, 5 inches Pick- Up Object From Floor Independent/Safe Look Behind Shoulder - Standing Shifts Weight Well Turning 360 Degrees Turns Bilateral, < 4 secs Unsupported Stance, Alternating Feet on 4 Steps w/Supervision Stair Unsupported Tandem Stance Balance Lost- Step/Stand Unilateral Leg Stance Lifts Leg/Unable to Hold Total Score [place] Total Score (out of 56 points) 43 [place] Impairment Rating 20 to 39% Impaired (Score 34- 44) PT-OP-E Functional Tests Start: 08/17/19 18:00 Freq: Status: Active Protocol: Document 08/17/19 10:30 NFW (Rec: 08/17/19 19:07 NFW [id number]) Functional Tests Dynamic Gait Index (DGI) Score 21 DGI Impairment Rating 1 to <20% Impaired (Score 20- 23) PT-OP-F Manual Assessment Start: 08/17/19 18:00 Freq: Status: Active Protocol: Document 08/17/19 10:30 NFW (Rec: 08/17/19 19:07 NFW [id number]) Manual Assessments Soft Tissue Assessment Soft Tissue Mobility Assessment Soft tissue tightness bilateral hamstrings. PT-OP-G Mobility & Gait Start: 08/17/19 18:00 Freq: Status: Active Protocol: Document 08/17/19 10:30 NFW (Rec: 08/17/19 19:07 NFW [id number]) OP Gait Assessment Gait Gait Assistance Required: Independent Assistive Devices Assistive Device None Factors Limiting Gait Function Factors Limiting Gait Function Abnormal Tonal Influences, Decreased Activity Tolerance, Pain,Poor Balance Comments Gait Comments Right medial list in ambulation, min to no arms swing. Has normal stride lengths. Stair Climbing Evaluation Evaluation Level of Assist On Stairs Independent Devices Stair Climbing Assistive Devices Left Railing Technique/Endurance Stair Climbing Direction Ascend and Descend Stair Climbing Technique Step to Step Number of Steps Climbed 6 Stair Climbing Set # Repetitions (reps) 2 Comments Stair Climbing Comments Step to gait leading with left in ascension, and right with descension. PT-OP-H Neuro Start: 08/17/19 18:00 Freq: Status: Active Protocol: Document 08/17/19 10:30 NFW (Rec: 08/17/19 19:07 NFW [id number]) Sensation Evaluation Gross Sensation Gross Sensation WNL PT-OP-J Posture/Palpation/Skin Start: 08/17/19 18:00 Freq: Status: Active Protocol: Document 08/17/19 10:30 NFW (Rec: 08/17/19 19:07 NFW [id number]) Posture Evaluation Position Standing L-Spine Posture Flattened Arm Posture (L) Internally Rotated,(R) Internally Rotated Pelvis Posture Posterior Tilted Knee Posture (L) Genu Recurvatum,(R) Genu Recurvatum Ankle/Foot Posture (L) Calcaneal Eversion,(R) Calcaneal Eversion,(L) Forefoot Abducted,(R) Forefoot Abducted Foot Arch (L) No Arch,(R) No Arch Palpation Assessment Location One Palpation Location Post Thighs Palpation Details No real point tenderness. PT-OP-K Range of Motion Start: 08/17/19 18:00 Freq: Status: Active Protocol: Document 08/17/19 10:30 NFW (Rec: 08/17/19 19:07 NFW [id number]) Lumbar Spine Range of Motion Lumbar Spine Active Testing Position Standing Comments WFL Hip Goniometric Range of Motion Hip Right Passive Hip ROM WFL Yes Testing Position Supine Straight Leg Raise 70 Left Passive Hip ROM WFL Yes Testing Position Supine Straight Leg Raise 80 Hip ROM Limitations Hip ROM Limitations Soft Tissue Tightness PT-OP-M Strength Start: 08/17/19 18:00 Freq: Status: Active Protocol: Document 08/17/19 10:30 NFW (Rec: 08/17/19 19:07 NFW [id number]) Hip Strength Hip Manual Muscle Testing Right Flexion (L2) 4 Good Abduction 4 Good Left Flexion (L2) 4 Good Abduction 4 Good Knee Strength Knee Manual Muscle Testing Right Flexion (S2) 4 Good Extension (L3) 4 Good Left Flexion (S2) 4 Good Extension (L3) 4 Good Ankle/Foot Strength Ankle and Foot Manual Muscle Testing Right Dorsiflexion (L4) 5 Normal Plantarflexion (S1) 5 Normal Left Dorsiflexion (L4) 5 Normal Plantarflexion (S1) 5 Normal PT-OP-Q Treatments Start: 08/17/19 18:00 Freq: Status: Active Protocol: Document 08/26/19 16:50 MB (Rec: 08/26/19 18:08 MB [id number]) Self-Care/Home Management Treatment Education Other Education Extensive discussion and ed in pt's reports of B posterior thigh pain, when it started, talk with pharmacist and providers about medication side-effects and interactions, consider follow-up about nutrition, increasing non- caffeinated fluid intake, protein, electrolytes, talk to physician about this. PT-OP-R Modalities Start: 08/17/19 18:00 Freq: Status: Active Protocol: Document 08/24/19 14:38 SP (Rec: 08/24/19 16:00 SP [email or web address]) Hot Pack/Cold Pack Treatment MHP Location HS Patient Position Prone Treatment Duration (minutes) 10 Patient Tolerance Good Comments back of thighs warmed up now, better PT-OP-T Assessment and Plan Start: 08/17/19 18:00 Freq: Status: Active Protocol: Document 08/26/19 16:50 MB (Rec: 08/26/19 18:08 MB [id number]) Physical Therapy Assessment Assessment Summary Assessment Extensive education this date on following-up with pharmacist, PCP and [place] doctor regarding medication side- effects and interactions in setting of B proximal posterior LE pain that started when she started chemo and statin 3-5 years ago. Con't gentle myofascial work, possible Counterstrain. Physical Therapy Plan Frequency and Duration Frequency of Treatment 2x/Week Duration of Treatment 8 weeks Plan of Care Start Date 08/17/19 Plan of Care End Date 10/19/19 Therapeutic Interventions Therapeutic Interventions Balance Training,Coordination Training,Gait Training,Home Exercise Program,Neuromuscular Re-education,Self-Care/Home Management,Soft Tissue Mobilization,Therapeutic Activities,Therapeutic Exercises,Vestibular Rehabilitation Next Visit Focus/Plan Next Note Type Treatment Note Next Visit Plan Review HEP, continue progress balance, LE strengthening.
--- NOTE | 2019-08-31 15:00 | PT.OTN ---
Current Diagnoses Pain in right leg (08/31/19) Pain in left leg (08/31/19) Unsteadiness on feet (08/31/19) Physical Therapy Treatment Note PT-OP-A Visit Information Start: 08/17/19 18:00 Freq: Status: Active Protocol: Document 08/31/19 13:00 [facility] (Rec: 09/01/19 11:32 [facility] [id number]) Out-Patient Physical Therapy Visit Information Visit Information Visit Type Treatment Note Visit Start Time 13:00 Visit Stop Time 13:45 Total Visit Minutes 45 Visit Number 5 Number of WAREHOUSE ADMINISTRATOR Visits 0 PT-OP-B Current Condition Start: 08/17/19 18:00 Freq: Status: Active Protocol: Document 08/17/19 10:30 NFW (Rec: 08/17/19 19:07 NFW [id number]) Current Condition History of Current Condition Onset Date At least two years Current Complaints Pain back of both thighs. (no pain front of thighs) History of Current Condition Onset insidious. Treatment Goals Patient/Caregiver Goals Pt has fear of falling and would like to regain confidence with walking on her feet and performing [facility] daily activities [facility] Current Functional Impairments (Reported) Functional Limitations- ADL's Sleeps in recliner on main level to avoid going up 17 stairs to the bedroom and for personal reasons. Functional Limitations- Mobility/Gait Difficulty in going up and down curbs/steps if no handrails are available. Functional Limitations- Recreation/ Apprehensions to using the [employer] treadmill at [facility] due to difficulty stepping up and down from the treadmill. PT-OP-C Subjective Start: 08/17/19 18:00 Freq: Status: Active Protocol: Document 08/31/19 13:00 [facility] (Rec: 09/01/19 11:32 [facility] [id number]) OP-PT Subjective Patient Comments Patient Comments pt reports she tried the heat last visit but it made her leg pain worse. She notes her pain is worse first thing in the am PT-OP-D Balance Start: 08/17/19 18:00 Freq: Status: Active Protocol: Document 08/17/19 10:30 NFW (Rec: 08/17/19 19:07 NFW [id number]) [place] Balance Assessment Evaluation Sitting to Standing Ability Independent w/Hands Unsupported Stance Safely- 2 minutes Sitting Unsupported, Feet on Floor Safely- 2 minutes Standing to Sitting Ability Assist, Control w/Hands Transfer Ability Safely, Hand Use Unsupported Stance- Eyes Closed Safely, 10 seconds Unsupported Stance- Eyes Open Independent, 1 minute Reaching Forward Standing Safely, 5 inches Pick- Up Object From Floor Independent/Safe Look Behind Shoulder - Standing Shifts Weight Well Turning 360 Degrees Turns Bilateral, < 4 secs Unsupported Stance, Alternating Feet on 4 Steps w/Supervision Stair Unsupported Tandem Stance Balance Lost- Step/Stand Unilateral Leg Stance Lifts Leg/Unable to Hold Total Score [place] Total Score (out of 56 points) 43 [place] Impairment Rating 20 to 39% Impaired (Score 34- 44) PT-OP-E Functional Tests Start: 08/17/19 18:00 Freq: Status: Active Protocol: Document 08/17/19 10:30 NFW (Rec: 08/17/19 19:07 NFW [id number]) Functional Tests Dynamic Gait Index (DGI) Score 21 DGI Impairment Rating 1 to <20% Impaired (Score 20- 23) PT-OP-F Manual Assessment Start: 08/17/19 18:00 Freq: Status: Active Protocol: Document 08/17/19 10:30 NFW (Rec: 08/17/19 19:07 NFW [id number]) Manual Assessments Soft Tissue Assessment Soft Tissue Mobility Assessment Soft tissue tightness bilateral hamstrings. PT-OP-G Mobility & Gait Start: 08/17/19 18:00 Freq: Status: Active Protocol: Document 08/17/19 10:30 NFW (Rec: 08/17/19 19:07 NFW [id number]) OP Gait Assessment Gait Gait Assistance Required: Independent Assistive Devices Assistive Device None Factors Limiting Gait Function Factors Limiting Gait Function Abnormal Tonal Influences, Decreased Activity Tolerance, Pain,Poor Balance Comments Gait Comments Right medial list in ambulation, min to no arms swing. Has normal stride lengths. Stair Climbing Evaluation Evaluation Level of Assist On Stairs Independent Devices Stair Climbing Assistive Devices Left Railing Technique/Endurance Stair Climbing Direction Ascend and Descend Stair Climbing Technique Step to Step Number of Steps Climbed 6 Stair Climbing Set # Repetitions (reps) 2 Comments Stair Climbing Comments Step to gait leading with left in ascension, and right with descension. PT-OP-H Neuro Start: 08/17/19 18:00 Freq: Status: Active Protocol: Document 08/17/19 10:30 NFW (Rec: 08/17/19 19:07 NFW [id number]) Sensation Evaluation Gross Sensation Gross Sensation WNL PT-OP-J Posture/Palpation/Skin Start: 08/17/19 18:00 Freq: Status: Active Protocol: Document 08/17/19 10:30 NFW (Rec: 08/17/19 19:07 NFW [id number]) Posture Evaluation Position Standing L-Spine Posture Flattened Arm Posture (L) Internally Rotated,(R) Internally Rotated Pelvis Posture Posterior Tilted Knee Posture (L) Genu Recurvatum,(R) Genu Recurvatum Ankle/Foot Posture (L) Calcaneal Eversion,(R) Calcaneal Eversion,(L) Forefoot Abducted,(R) Forefoot Abducted Foot Arch (L) No Arch,(R) No Arch Palpation Assessment Location One Palpation Location Post Thighs Palpation Details No real point tenderness. PT-OP-K Range of Motion Start: 08/17/19 18:00 Freq: Status: Active Protocol: Document 08/17/19 10:30 NFW (Rec: 08/17/19 19:07 NFW [id number]) Lumbar Spine Range of Motion Lumbar Spine Active Testing Position Standing Comments WFL Hip Goniometric Range of Motion Hip Right Passive Hip ROM WFL Yes Testing Position Supine Straight Leg Raise 70 Left Passive Hip ROM WFL Yes Testing Position Supine Straight Leg Raise 80 Hip ROM Limitations Hip ROM Limitations Soft Tissue Tightness PT-OP-M Strength Start: 08/17/19 18:00 Freq: Status: Active Protocol: Document 08/17/19 10:30 NFW (Rec: 08/17/19 19:07 NFW [id number]) Hip Strength Hip Manual Muscle Testing Right Flexion (L2) 4 Good Abduction 4 Good Left Flexion (L2) 4 Good Abduction 4 Good Knee Strength Knee Manual Muscle Testing Right Flexion (S2) 4 Good Extension (L3) 4 Good Left Flexion (S2) 4 Good Extension (L3) 4 Good Ankle/Foot Strength Ankle and Foot Manual Muscle Testing Right Dorsiflexion (L4) 5 Normal Plantarflexion (S1) 5 Normal Left Dorsiflexion (L4) 5 Normal Plantarflexion (S1) 5 Normal PT-OP-Q Treatments Start: 08/17/19 18:00 Freq: Status: Active Protocol: Document 08/31/19 13:00 [facility] (Rec: 09/01/19 11:32 [facility] [id number]) Cardio Equipment Recumbent Elliptical (Biodex) Duration (Minutes) 5 Other level 1 Gym Equipment Shuttle Recovery shuttle recovery Details BLE Resistance 50# Shuttle Recovery Platform Stable Reps/Time 2x10 Therapeutic Exercises Supine Exercises 6 Supine Exercise Name Bridge Side bilateral Equipment Used ball between knees Reps/Minutes 10 x, 5 sec holds 2 Supine Exercise Name supine quad sets Reps/Minutes x 10 reps 5 sec hold 1 Supine Exercise Name supine hamstring stretch Comments manual stretch with 1 min hold Sitting Exercises 2 Sitting Exercise Name seated active knee extension Reps/Minutes x 10 reps 1 Sitting Exercise Name seated hamstring stretch with foot on chair Reps/Minutes hold 1 min B Comments pt shown to hinge from hips Standing Exercises sit to stand Equipment Used 22 raised table Reps/Minutes 2x5 Comments Use of B UE, cued hip hinge forward, heel press, glut facilitation Manual Therapy Treatment Soft Tissue Mobilization 2 Body Location prone over body pillow Comments gentle STM to bilateral hamstring musculature PT-OP-R Modalities Start: 08/17/19 18:00 Freq: Status: Active Protocol: Document 08/24/19 14:38 SP (Rec: 08/24/19 16:00 SP [id number]) Hot Pack/Cold Pack Treatment MHP Location HS Patient Position Prone Treatment Duration (minutes) 10 Patient Tolerance Good Comments back of thighs warmed up now, better PT-OP-T Assessment and Plan Start: 08/17/19 18:00 Freq: Status: Active Protocol: Document 08/31/19 13:00 [facility] (Rec: 09/01/19 11:32 [facility] [id number]) Physical Therapy Assessment Assessment Summary Assessment pt reports she will see her cancer doctor this next month and will review medicine. Pt tolerated STM and liked the seated hamstring stretch but no significant change in pain noted. Physical Therapy Plan Next Visit Focus/Plan Next Note Type Treatment Note Next Visit Plan Continue to progress exercises for home as pt is pretty sedentary, assess manual hamstring work and stretches
--- NOTE | 2019-09-03 14:30 | PT.OTN ---
Current Diagnoses Pain in right leg (09/03/19) Pain in left leg (09/03/19) Unsteadiness on feet (09/03/19) Physical Therapy Treatment Note PT-OP-A Visit Information Start: 08/17/19 18:00 Freq: Status: Active Protocol: Document 09/03/19 13:47 SP (Rec: 09/03/19 14:31 SP [id number]) Out-Patient Physical Therapy Visit Information Visit Information Visit Type Treatment Note Visit Start Time 13:47 Visit Stop Time 14:30 Total Visit Minutes 43 Visit Number 6 Number of FLEET OPERATIONS MANAGER Visits 1 PT-OP-B Current Condition Start: 08/17/19 18:00 Freq: Status: Active Protocol: Document 08/17/19 10:30 NFW (Rec: 08/17/19 19:07 NFW [id number]) Current Condition History of Current Condition Onset Date At least two years Current Complaints Pain back of both thighs. (no pain front of thighs) History of Current Condition Onset insidious. Treatment Goals Patient/Caregiver Goals Pt has fear of falling and would like to regain confidence with walking on her feet and performing her daily activities including her exercises at [facility]. Current Functional Impairments (Reported) Functional Limitations- ADL's Sleeps in recliner on main level to avoid going up 17 stairs to the bedroom and for personal reasons. Functional Limitations- Mobility/Gait Difficulty in going up and down curbs/steps if no handrails are available. Functional Limitations- Recreation/ Apprehensions to using the [employer] treadmill at [facility] due to difficulty stepping up and down from the treadmill. PT-OP-C Subjective Start: 08/17/19 18:00 Freq: Status: Active Protocol: Document 09/03/19 13:47 SP (Rec: 09/03/19 14:31 SP [id number]) OP-PT Subjective Patient Comments Patient Comments Pt reported saw her physician recently regarding her HS area pain and he said possibly bone pain. She follows up with oncologist in Sep. PT-OP-D Balance Start: 08/17/19 18:00 Freq: Status: Active Protocol: Document 08/17/19 10:30 NFW (Rec: 08/17/19 19:07 NFW [id number]) [place] Balance Assessment Evaluation Sitting to Standing Ability Independent w/Hands Unsupported Stance Safely- 2 minutes Sitting Unsupported, Feet on Floor Safely- 2 minutes Standing to Sitting Ability Assist, Control w/Hands Transfer Ability Safely, Hand Use Unsupported Stance- Eyes Closed Safely, 10 seconds Unsupported Stance- Eyes Open Independent, 1 minute Reaching Forward Standing Safely, 5 inches Pick- Up Object From Floor Independent/Safe Look Behind Shoulder - Standing Shifts Weight Well Turning 360 Degrees Turns Bilateral, < 4 secs Unsupported Stance, Alternating Feet on 4 Steps w/Supervision Stair Unsupported Tandem Stance Balance Lost- Step/Stand Unilateral Leg Stance Lifts Leg/Unable to Hold Total Score [place] Total Score (out of 56 points) 43 [place] Impairment Rating 20 to 39% Impaired (Score 34- 44) PT-OP-E Functional Tests Start: 08/17/19 18:00 Freq: Status: Active Protocol: Document 08/17/19 10:30 NFW (Rec: 08/17/19 19:07 NFW [id number]) Functional Tests Dynamic Gait Index (DGI) Score 21 DGI Impairment Rating 1 to <20% Impaired (Score 20- 23) PT-OP-F Manual Assessment Start: 08/17/19 18:00 Freq: Status: Active Protocol: Document 08/17/19 10:30 NFW (Rec: 08/17/19 19:07 NFW [id number]) Manual Assessments Soft Tissue Assessment Soft Tissue Mobility Assessment Soft tissue tightness bilateral hamstrings. PT-OP-G Mobility & Gait Start: 08/17/19 18:00 Freq: Status: Active Protocol: Document 08/17/19 10:30 NFW (Rec: 08/17/19 19:07 NFW [id number]) OP Gait Assessment Gait Gait Assistance Required: Independent Assistive Devices Assistive Device None Factors Limiting Gait Function Factors Limiting Gait Function Abnormal Tonal Influences, Decreased Activity Tolerance, Pain,Poor Balance Comments Gait Comments Right medial list in ambulation, min to no arms swing. Has normal stride lengths. Stair Climbing Evaluation Evaluation Level of Assist On Stairs Independent Devices Stair Climbing Assistive Devices Left Railing Technique/Endurance Stair Climbing Direction Ascend and Descend Stair Climbing Technique Step to Step Number of Steps Climbed 6 Stair Climbing Set # Repetitions (reps) 2 Comments Stair Climbing Comments Step to gait leading with left in ascension, and right with descension. PT-OP-H Neuro Start: 08/17/19 18:00 Freq: Status: Active Protocol: Document 08/17/19 10:30 NFW (Rec: 08/17/19 19:07 NFW [id number]) Sensation Evaluation Gross Sensation Gross Sensation WNL PT-OP-J Posture/Palpation/Skin Start: 08/17/19 18:00 Freq: Status: Active Protocol: Document 08/17/19 10:30 NFW (Rec: 08/17/19 19:07 NFW [id number]) Posture Evaluation Position Standing L-Spine Posture Flattened Arm Posture (L) Internally Rotated,(R) Internally Rotated Pelvis Posture Posterior Tilted Knee Posture (L) Genu Recurvatum,(R) Genu Recurvatum Ankle/Foot Posture (L) Calcaneal Eversion,(R) Calcaneal Eversion,(L) Forefoot Abducted,(R) Forefoot Abducted Foot Arch (L) No Arch,(R) No Arch Palpation Assessment Location One Palpation Location Post Thighs Palpation Details No real point tenderness. PT-OP-K Range of Motion Start: 08/17/19 18:00 Freq: Status: Active Protocol: Document 08/17/19 10:30 NFW (Rec: 08/17/19 19:07 NFW [id number]) Lumbar Spine Range of Motion Lumbar Spine Active Testing Position Standing Comments WFL Hip Goniometric Range of Motion Hip Right Passive Hip ROM WFL Yes Testing Position Supine Straight Leg Raise 70 Left Passive Hip ROM WFL Yes Testing Position Supine Straight Leg Raise 80 Hip ROM Limitations Hip ROM Limitations Soft Tissue Tightness PT-OP-M Strength Start: 08/17/19 18:00 Freq: Status: Active Protocol: Document 08/17/19 10:30 NFW (Rec: 08/17/19 19:07 NFW [id number]) Hip Strength Hip Manual Muscle Testing Right Flexion (L2) 4 Good Abduction 4 Good Left Flexion (L2) 4 Good Abduction 4 Good Knee Strength Knee Manual Muscle Testing Right Flexion (S2) 4 Good Extension (L3) 4 Good Left Flexion (S2) 4 Good Extension (L3) 4 Good Ankle/Foot Strength Ankle and Foot Manual Muscle Testing Right Dorsiflexion (L4) 5 Normal Plantarflexion (S1) 5 Normal Left Dorsiflexion (L4) 5 Normal Plantarflexion (S1) 5 Normal PT-OP-Q Treatments Start: 08/17/19 18:00 Freq: Status: Active Protocol: Document 09/03/19 13:47 SP (Rec: 09/03/19 14:31 SP [id number]) Cardio Equipment Treadmill Duration (Minutes) 6 Speed 2.2 Incline 0 Gym Equipment Shuttle Recovery eccentric calf raises Details BLE Resistance 50# Shuttle Recovery Platform Stable Reps/Time 2x10 pause 2 sec into eccentric stretch shuttle recovery Details BLE Resistance 50# Shuttle Recovery Platform Stable Reps/Time 2x10 pause 5 sec Therapeutic Exercises Supine Exercises 6 Supine Exercise Name Bridge Side bilateral Equipment Used ball between knees Reps/Minutes 10 x, 5 sec holds Sitting Exercises 2 Sitting Exercise Name seated active knee extension Reps/Minutes x 10 reps 1 Sitting Exercise Name seated hamstring stretch with fot out in front to much of stretch on chair Reps/Minutes 1 min x2 B Comments pt shown to hinge from hips Standing Exercises sit to stand Equipment Used 22 raised table Reps/Minutes 2x5 Comments Use of R UE, cued hip hinge forward, heel press, glut facilitation PT-OP-R Modalities Start: 08/17/19 18:00 Freq: Status: Active Protocol: Document 08/24/19 14:38 SP (Rec: 08/24/19 16:00 SP [id number]) Hot Pack/Cold Pack Treatment MHP Location HS Patient Position Prone Treatment Duration (minutes) 10 Patient Tolerance Good Comments back of thighs warmed up now, better PT-OP-T Assessment and Plan Start: 08/17/19 18:00 Freq: Status: Active Protocol: Document 09/03/19 13:47 SP (Rec: 09/03/19 14:31 SP [id number]) Physical Therapy Assessment Goals Five Impairment Difficulty with ascending and descending stairs Short Term Goal (STG) Ascend and descend stairs with use of handrail, step over step for 4 steps. STG Duration 09/18/19 Long-Term Goal (LTG) Ascend and descend stairs with use of handrail, step over step for 18 steps. LTG Duration 10/19/19 Four Impairment Loss of confidence with daily activities - ABC scoring Fixed Wing Aircraft Flight Mechanic Goal (LTG) Improving scoring to moderate level functioning (score of 50 -80) LTG Duration 10/19/19 Three Impairment Low LEFS Score Short Term Goal (STG) Improve score of LEFs from 60- 79% impaired to 40-59% STG Duration 09/18/19 Long-Term Goal (LTG) Improve score of LEFs to 20-39 % impaired. LTG Duration 10/19/19 Two Impairment Loss of balance as noted with [place] Balance Testing Long-Term Goal (LTG) Improve scoring to 1-19% impaired. LTG Duration 10/19/19 One Impairment Decrease ADL functional activity level - FAAM scoring Short Term Goal (STG) Improve score from 60-79 restriced to 40-59% STG Duration 09/18/19 Fixed Wing Aircraft Flight Mechanic Goal (LTG) Improve score to 20-39% restricted LTG Duration 10/19/19 Assessment Summary Assessment Tx focused on HEP: Pt warmed up on treadmill and added heel raises on shuttle press today . Reported knees started to hurt at 10 reps so will modify to 5 next tx and can do 2 sets if tolerated. Pt was able to complete sit to stand with only RUE and cuing nose over toes with glut facilitation. Pt re reported her R knee feels better and didn't need modalities after the stretching and sit to stands, suprised only had to use RUE for support. Physical Therapy Plan Frequency and Duration Frequency of Treatment 2x/Week Duration of Treatment 8 weeks Plan of Care Start Date 08/17/19 Plan of Care End Date 10/19/19 Therapeutic Interventions Therapeutic Interventions Balance Training,Coordination Training,Gait Training,Home Exercise Program,Neuromuscular Re-education,Self-Care/Home Management,Soft Tissue Mobilization,Therapeutic Activities,Therapeutic Exercises,Vestibular Rehabilitation Next Visit Focus/Plan Next Note Type Treatment Note Next Visit Plan Assess addd shuttle rec calf raises. Continue to progress exercises for home as pt is pretty sedentary, assess manual hamstring work and stretches.
--- NOTE | 2019-09-10 13:48 | PT.OTN ---
Current Diagnoses Pain in right leg (09/14/19) Pain in left leg (09/14/19) Unsteadiness on feet (09/14/19) Physical Therapy Treatment Note PT-OP-A Visit Information Start: 08/17/19 18:00 Freq: Status: Active Protocol: Document 09/14/19 11:17 LRN (Rec: 09/14/19 12:11 LRN [id number]) Out-Patient Physical Therapy Visit Information Visit Information Visit Type Treatment Note Visit Start Time 11:17 Visit Stop Time 12:11 Total Visit Minutes 54 Visit Number 8 Number of RENTAL CAR FERRY DRIVER Visits 0 Evaluation Information Evaluation Date 08/17/19 PT-OP-B Current Condition Start: 08/17/19 18:00 Freq: Status: Active Protocol: Document 08/17/19 10:30 NFW (Rec: 08/17/19 19:07 NFW [id number]) Current Condition History of Current Condition Onset Date At least two years Current Complaints Pain back of both thighs. (no pain front of thighs) History of Current Condition Onset insidious. Treatment Goals Patient/Caregiver Goals Pt has fear of falling and would like to regain confidence with walking on her feet and performing her daily activities including her exercises at [facility]. Current Functional Impairments (Reported) Functional Limitations- ADL's Sleeps in recliner on main level to avoid going up 17 stairs to the bedroom and for personal reasons. Functional Limitations- Mobility/Gait Difficulty in going up and down curbs/steps if no handrails are available. Functional Limitations- Recreation/ Apprehensions to using the [employer] treadmill at [facility] due to difficulty stepping up and down from the treadmill. PT-OP-C Subjective Start: 08/17/19 18:00 Freq: Status: Active Protocol: Document 09/14/19 11:17 LRN (Rec: 09/14/19 12:11 LRN [id number]) OP-PT Subjective Patient Comments Patient Comments No significant change. Still get sore in hips, thighs and hamstrings. Didn't have to take a arthritis/Tylenol pain medication. PT-OP-D Balance Start: 08/17/19 18:00 Freq: Status: Active Protocol: Document 09/10/19 13:48 SP (Rec: 09/13/19 11:18 SP [id number]) Olvera Balance Assessment Total Score Olvera Impairment Rating 1 to 19% Impaired (Score 45-55 ) PT-OP-E Functional Tests Start: 08/17/19 18:00 Freq: Status: Active Protocol: Document 09/10/19 13:48 SP (Rec: 09/13/19 11:14 SP [id number]) Functional Tests Dynamic Gait Index (DGI) Score 21/24 DGI Impairment Rating 1 to <20% Impaired (Score 20- 23) PT-OP-F Manual Assessment Start: 08/17/19 18:00 Freq: Status: Active Protocol: Document 08/17/19 10:30 NFW (Rec: 08/17/19 19:07 NFW [id number]) Manual Assessments Soft Tissue Assessment Soft Tissue Mobility Assessment Soft tissue tightness bilateral hamstrings. PT-OP-G Mobility & Gait Start: 08/17/19 18:00 Freq: Status: Active Protocol: Document 08/17/19 10:30 NFW (Rec: 08/17/19 19:07 NFW [id number]) OP Gait Assessment Gait Gait Assistance Required: Independent Assistive Devices Assistive Device None Factors Limiting Gait Function Factors Limiting Gait Function Abnormal Tonal Influences, Decreased Activity Tolerance, Pain,Poor Balance Comments Gait Comments Right medial list in ambulation, min to no arms swing. Has normal stride lengths. Stair Climbing Evaluation Evaluation Level of Assist On Stairs Independent Devices Stair Climbing Assistive Devices Left Railing Technique/Endurance Stair Climbing Direction Ascend and Descend Stair Climbing Technique Step to Step Number of Steps Climbed 6 Stair Climbing Set # Repetitions (reps) 2 Comments Stair Climbing Comments Step to gait leading with left in ascension, and right with descension. PT-OP-H Neuro Start: 08/17/19 18:00 Freq: Status: Active Protocol: Document 08/17/19 10:30 NFW (Rec: 08/17/19 19:07 NFW [id number]) Sensation Evaluation Gross Sensation Gross Sensation WNL PT-OP-J Posture/Palpation/Skin Start: 08/17/19 18:00 Freq: Status: Active Protocol: Document 08/17/19 10:30 NFW (Rec: 08/17/19 19:07 NFW [id number]) Posture Evaluation Position Standing L-Spine Posture Flattened Arm Posture (L) Internally Rotated,(R) Internally Rotated Pelvis Posture Posterior Tilted Knee Posture (L) Genu Recurvatum,(R) Genu Recurvatum Ankle/Foot Posture (L) Calcaneal Eversion,(R) Calcaneal Eversion,(L) Forefoot Abducted,(R) Forefoot Abducted Foot Arch (L) No Arch,(R) No Arch Palpation Assessment Location One Palpation Location Post Thighs Palpation Details No real point tenderness. PT-OP-K Range of Motion Start: 08/17/19 18:00 Freq: Status: Active Protocol: Document 08/17/19 10:30 NFW (Rec: 08/17/19 19:07 NFW [id number]) Lumbar Spine Range of Motion Lumbar Spine Active Testing Position Standing Comments WFL Hip Goniometric Range of Motion Hip Right Passive Hip ROM WFL Yes Testing Position Supine Straight Leg Raise 70 Left Passive Hip ROM WFL Yes Testing Position Supine Straight Leg Raise 80 Hip ROM Limitations Hip ROM Limitations Soft Tissue Tightness PT-OP-M Strength Start: 08/17/19 18:00 Freq: Status: Active Protocol: Document 08/17/19 10:30 NFW (Rec: 08/17/19 19:07 NFW [id number]) Hip Strength Hip Manual Muscle Testing Right Flexion (L2) 4 Good Abduction 4 Good Left Flexion (L2) 4 Good Abduction 4 Good Knee Strength Knee Manual Muscle Testing Right Flexion (S2) 4 Good Extension (L3) 4 Good Left Flexion (S2) 4 Good Extension (L3) 4 Good Ankle/Foot Strength Ankle and Foot Manual Muscle Testing Right Dorsiflexion (L4) 5 Normal Plantarflexion (S1) 5 Normal Left Dorsiflexion (L4) 5 Normal Plantarflexion (S1) 5 Normal PT-OP-Q Treatments Start: 08/17/19 18:00 Freq: Status: Active Protocol: Document 09/14/19 11:17 LRN (Rec: 09/14/19 12:11 LRN [id number]) Cardio Equipment Treadmill Duration (Minutes) 10 Speed 2.2 Incline 0 Gym Equipment Shuttle Recovery eccentric calf raises Details BLE Resistance 50# Shuttle Recovery Platform Stable Reps/Time 2x15 pause 2 sec into eccentric stretch shuttle recovery Details BLE Resistance 50# Shuttle Recovery Platform Stable Reps/Time 2x15 pause 5 sec Therapeutic Exercises Supine Exercises Hamstring stretch Supine Exercise Name Hamstring stretch Side bilateral Comments Pt with ~80 deg's PSLR prior to hamstring tight SLR with leg in ER Supine Exercise Name Medial Quad strengthening Side bilateral Reps/Minutes 10x each Sitting Exercises Knee flexion Sitting Exercise Name Knee flex Side bilateral Equipment Used Lev 2 T-Band Reps/Minutes 15x Comments Pt hamstring fatigued 2 Sitting Exercise Name seated active knee extension Comments Multiple attempts made, but pt c/o knee pain Standing Exercises sit to stand Standing Exercise Name Sit to Stand Equipment Used Foam cushion on chair Reps/Minutes 5x Comments Use of UE's Manual Therapy Treatment Manual Techniques MWM Type MWM: medial glide tib/fit with min IR on extension Body Location L knee Body Position Sitting Reps/Duration 5' Comments Variable attempts for manual mob with sometimes medial glide of patella. PT-OP-R Modalities Start: 08/17/19 18:00 Freq: Status: Active Protocol: Document 09/14/19 11:17 LRN (Rec: 09/14/19 12:11 LRN [id number]) Hot Pack/Cold Pack Treatment CP Location B HS Patient Position Supine Treatment Duration (minutes) 10 Patient Tolerance Good PT-OP-T Assessment and Plan Start: 08/17/19 18:00 Freq: Status: Active Protocol: Document 09/14/19 11:17 LRN (Rec: 09/14/19 12:11 LRN [id number]) Physical Therapy Assessment Assessment Summary Assessment Start TM warm up. Poor tolerance to Quad strengthening due to arthritis . She tolerated active knee ext mildly better with MWM. No change with use of shuttle for ankle strengthening. She has no knee pain with hamstring strengthening, mobility is fairly good. Physical Therapy Plan Frequency and Duration Frequency of Treatment 2x/Week Duration of Treatment 8 weeks Plan of Care Start Date 08/17/19 Plan of Care End Date 10/19/19 Next Visit Focus/Plan Next Note Type Treatment Note Next Visit Plan Pt will cont therapy with new primary therapist Ivis Chiu PT. Review HEP, attends gym: Continue to progress exercises for home as pt is pretty sedentary, assess manual hamstring work.
--- NOTE | 2019-09-10 14:40 | PT.OTN ---
Current Diagnoses Pain in right leg (09/10/19) Pain in left leg (09/10/19) Unsteadiness on feet (09/10/19) Physical Therapy Treatment Note PT-OP-A Visit Information Start: 08/17/19 18:00 Freq: Status: Active Protocol: Document 09/10/19 13:48 SP (Rec: 09/10/19 17:17 SP [id number]) Out-Patient Physical Therapy Visit Information Visit Information Visit Type Treatment Note Visit Start Time 13:48 Visit Stop Time 14:40 Total Visit Minutes 52 Visit Number 7 Number of COCOA BEAN ROASTER Visits 2 PT-OP-B Current Condition Start: 08/17/19 18:00 Freq: Status: Active Protocol: Document 08/17/19 10:30 NFW (Rec: 08/17/19 19:07 NFW [id number]) Current Condition History of Current Condition Onset Date At least two years Current Complaints Pain back of both thighs. (no pain front of thighs) History of Current Condition Onset insidious. Treatment Goals Patient/Caregiver Goals Pt has fear of falling and would like to regain confidence with walking on her feet and performing her daily activities including her exercises at [facility]. Current Functional Impairments (Reported) Functional Limitations- ADL's Sleeps in recliner on main level to avoid going up 17 stairs to the bedroom and for personal reasons. Functional Limitations- Mobility/Gait Difficulty in going up and down curbs/steps if no handrails are available. Functional Limitations- Recreation/ Apprehensions to using the [employer] treadmill at [facility] due to difficulty stepping up and down from the treadmill. PT-OP-C Subjective Start: 08/17/19 18:00 Freq: Status: Active Protocol: Document 09/10/19 13:48 SP (Rec: 09/10/19 17:17 SP [id number]) OP-PT Subjective Patient Comments Patient Comments Pt reported doing ok, HS still sore. Still difficult to get on treadmill at gym with no handles like here but is able to squeezed between treadmills to get to handles for support to get onto. Patient Questionnaires Foot & Ankle Ability Measure- ADL and Sports FAAM-ADL Score 62 FAAM-ADL Impairment 20 to 39% Impaired (Score 50- 66) FAAM-Sport Score 16 FAAM-Sport Impairment 40 to 59% Impaired (Score 12- 18) Lower Extremity Functional Scale LEFS Score 38/80 LEFS Impairment 40 to 59% Impaired (Score 32- 47) PT-OP-D Balance Start: 08/17/19 18:00 Freq: Status: Active Protocol: Document 09/10/19 13:48 SP (Rec: 09/13/19 11:18 SP [id number]) Olvera Balance Assessment Total Score Olvera Impairment Rating 1 to 19% Impaired (Score 47) PT-OP-E Functional Tests Start: 08/17/19 18:00 Freq: Status: Active Protocol: Document 09/10/19 13:48 SP (Rec: 09/13/19 11:14 SP [id number]) Functional Tests Dynamic Gait Index (DGI) Score 21/24 DGI Impairment Rating 1 to <20% Impaired (Score 20- 23) PT-OP-F Manual Assessment Start: 08/17/19 18:00 Freq: Status: Active Protocol: Document 08/17/19 10:30 NFW (Rec: 08/17/19 19:07 NFW [id number]) Manual Assessments Soft Tissue Assessment Soft Tissue Mobility Assessment Soft tissue tightness bilateral hamstrings. PT-OP-G Mobility & Gait Start: 08/17/19 18:00 Freq: Status: Active Protocol: Document 08/17/19 10:30 NFW (Rec: 08/17/19 19:07 NFW [id number]) OP Gait Assessment Gait Gait Assistance Required: Independent Assistive Devices Assistive Device None Factors Limiting Gait Function Factors Limiting Gait Function Abnormal Tonal Influences, Decreased Activity Tolerance, Pain,Poor Balance Comments Gait Comments Right medial list in ambulation, min to no arms swing. Has normal stride lengths. Stair Climbing Evaluation Evaluation Level of Assist On Stairs Independent Devices Stair Climbing Assistive Devices Left Railing Technique/Endurance Stair Climbing Direction Ascend and Descend Stair Climbing Technique Step to Step Number of Steps Climbed 6 Stair Climbing Set # Repetitions (reps) 2 Comments Stair Climbing Comments Step to gait leading with left in ascension, and right with descension. PT-OP-H Neuro Start: 08/17/19 18:00 Freq: Status: Active Protocol: Document 08/17/19 10:30 NFW (Rec: 08/17/19 19:07 NFW [id number]) Sensation Evaluation Gross Sensation Gross Sensation WNL PT-OP-J Posture/Palpation/Skin Start: 08/17/19 18:00 Freq: Status: Active Protocol: Document 08/17/19 10:30 NFW (Rec: 08/17/19 19:07 NFW [id number]) Posture Evaluation Position Standing L-Spine Posture Flattened Arm Posture (L) Internally Rotated,(R) Internally Rotated Pelvis Posture Posterior Tilted Knee Posture (L) Genu Recurvatum,(R) Genu Recurvatum Ankle/Foot Posture (L) Calcaneal Eversion,(R) Calcaneal Eversion,(L) Forefoot Abducted,(R) Forefoot Abducted Foot Arch (L) No Arch,(R) No Arch Palpation Assessment Location One Palpation Location Post Thighs Palpation Details No real point tenderness. PT-OP-K Range of Motion Start: 08/17/19 18:00 Freq: Status: Active Protocol: Document 08/17/19 10:30 NFW (Rec: 08/17/19 19:07 NFW [id number]) Lumbar Spine Range of Motion Lumbar Spine Active Testing Position Standing Comments WFL Hip Goniometric Range of Motion Hip Right Passive Hip ROM WFL Yes Testing Position Supine Straight Leg Raise 70 Left Passive Hip ROM WFL Yes Testing Position Supine Straight Leg Raise 80 Hip ROM Limitations Hip ROM Limitations Soft Tissue Tightness PT-OP-M Strength Start: 08/17/19 18:00 Freq: Status: Active Protocol: Document 08/17/19 10:30 NFW (Rec: 08/17/19 19:07 NFW [id number]) Hip Strength Hip Manual Muscle Testing Right Flexion (L2) 4 Good Abduction 4 Good Left Flexion (L2) 4 Good Abduction 4 Good Knee Strength Knee Manual Muscle Testing Right Flexion (S2) 4 Good Extension (L3) 4 Good Left Flexion (S2) 4 Good Extension (L3) 4 Good Ankle/Foot Strength Ankle and Foot Manual Muscle Testing Right Dorsiflexion (L4) 5 Normal Plantarflexion (S1) 5 Normal Left Dorsiflexion (L4) 5 Normal Plantarflexion (S1) 5 Normal PT-OP-Q Treatments Start: 08/17/19 18:00 Freq: Status: Active Protocol: Document 09/10/19 13:48 SP (Rec: 09/13/19 11:14 SP [id number]) Gym Equipment Shuttle Recovery eccentric calf raises Details BLE Resistance 50# Shuttle Recovery Platform Stable Reps/Time 2x10 pause 2 sec into eccentric stretch shuttle recovery Details BLE Resistance 50# Shuttle Recovery Platform Stable Reps/Time 2x10 pause 5 sec Gait Training Gait Activity STAIRS Comments Pt completed stair mgt step over step x4 stairs using 1 and 2 HRs. Unable to complete with no HR during trial. PT-OP-R Modalities Start: 08/17/19 18:00 Freq: Status: Active Protocol: Document 09/10/19 13:48 SP (Rec: 09/13/19 11:18 SP [id number]) Hot Pack/Cold Pack Treatment CP Location B HS Patient Position Supine Treatment Duration (minutes) 10 Patient Tolerance Good Comments decreased pain to /10 from (post ex/ testing) PT-OP-T Assessment and Plan Start: 08/17/19 18:00 Freq: Status: Active Protocol: Document 09/10/19 13:48 SP (Rec: 09/13/19 11:14 SP [id number]) Physical Therapy Assessment Goals Five Impairment Difficulty with ascending and descending stairs Short Term Goal (STG) Ascend and descend stairs with use of handrail, step over step for 4 steps. GOAL MET 09/10/19 STG Duration 09/18/19 Turbine Subassembler Goal (LTG) Ascend and descend stairs with use of handrail, step over step for 18 steps. LTG Duration 10/19/19 Four Impairment Loss of confidence with daily activities - ABC scoring Long-Term Goal (LTG) Improving scoring to moderate level functioning (score of 50 -80) LTG Duration 10/19/19 Three Impairment Low LEFS Score Short Term Goal (STG) Improve score of LEFs from 60- 79% impaired to 40-59% (score 38) GOAL MET 09/10/19 STG Duration 09/18/19 Turbine Subassembler Goal (LTG) Improve score of LEFs to 20-39 % impaired. LTG Duration 10/19/19 Two Impairment Loss of balance as noted with Olvera Balance Testing Long-Term Goal (LTG) Improve scoring to 1-19% impaired (score 47). LTG Duration 10/19/19 One Impairment Decrease ADL functional activity level - FAAM scoring Short Term Goal (STG) Improve score from 60-79 restricted to 40-59% (sore 62) STG Duration 09/18/19 Long-Term Goal (LTG) Improve score to 20-39% restricted GOAL MET 09/10/19 (score 16) LTG Duration 10/19/19 Assessment Summary Assessment Tx focused on treadmill warm up 8 min 2.2 mph and shuttle recovery gym HEP review with good tolerance and cuing for slow muscluar pacing. Reassess special testing today with gains noted and updated met goals. Olvera score 47/56. Pt has one more appt scheduled, needs more appts scheduled out through POC date (purple sheet in chart). Physical Therapy Plan Frequency and Duration Frequency of Treatment 2x/Week Duration of Treatment 8 weeks Plan of Care Start Date 08/17/19 Plan of Care End Date 10/19/19 Therapeutic Interventions Therapeutic Interventions Balance Training,Coordination Training,Gait Training,Home Exercise Program,Neuromuscular Re-education,Self-Care/Home Management,Soft Tissue Mobilization,Therapeutic Activities,Therapeutic Exercises,Vestibular Rehabilitation Next Visit Focus/Plan Next Note Type Treatment Note Next Visit Plan Review HEP, attends gym: Continue per PT POC: to progress exercises for home as pt is pretty sedentary, assess manual hamstring work and stretches.
--- NOTE | 2019-09-14 12:11 | PT.OTN ---
Current Diagnoses Pain in right leg (09/14/19) Pain in left leg (09/14/19) Unsteadiness on feet (09/14/19) Physical Therapy Treatment Note PT-OP-A Visit Information Start: 08/17/19 18:00 Freq: Status: Active Protocol: Document 09/14/19 11:17 LRN (Rec: 09/14/19 12:11 LRN [id number]) Out-Patient Physical Therapy Visit Information Visit Information Visit Type Treatment Note Visit Start Time 11:17 Visit Stop Time 12:11 Total Visit Minutes 54 Visit Number 8 Number of NUCLEAR EQUIPMENT RESEARCH ENGINEER Visits 0 Evaluation Information Evaluation Date 08/17/19 PT-OP-B Current Condition Start: 08/17/19 18:00 Freq: Status: Active Protocol: Document 08/17/19 10:30 NFW (Rec: 08/17/19 19:07 NFW [id number]) Current Condition History of Current Condition Onset Date At least two years Current Complaints Pain back of both thighs. (no pain front of thighs) History of Current Condition Onset insidious. Treatment Goals Patient/Caregiver Goals Pt has fear of falling and would like to regain confidence with walking on her feet and performing her daily activities including her exercises at [facility]. Current Functional Impairments (Reported) Functional Limitations- ADL's Sleeps in recliner on main level to avoid going up 17 stairs to the bedroom and for personal reasons. Functional Limitations- Mobility/Gait Difficulty in going up and down curbs/steps if no handrails are available. Functional Limitations- Recreation/ Apprehensions to using the [employer] treadmill at [facility] due to difficulty stepping up and down from the treadmill. PT-OP-C Subjective Start: 08/17/19 18:00 Freq: Status: Active Protocol: Document 09/14/19 11:17 LRN (Rec: 09/14/19 12:11 LRN [id number]) OP-PT Subjective Patient Comments Patient Comments No significant change. Still get sore in hips, thighs and hamstrings. Didn't have to take a arthritis/Tylenol pain medication. PT-OP-D Balance Start: 08/17/19 18:00 Freq: Status: Active Protocol: Document 09/10/19 13:48 SP (Rec: 09/13/19 11:18 SP [id number]) Olvera Balance Assessment Total Score Olvera Impairment Rating 1 to 19% Impaired (Score 45-55 ) PT-OP-E Functional Tests Start: 08/17/19 18:00 Freq: Status: Active Protocol: Document 09/10/19 13:48 SP (Rec: 09/13/19 11:14 SP [id number]) Functional Tests Dynamic Gait Index (DGI) Score 21/24 DGI Impairment Rating 1 to <20% Impaired (Score 20- 23) PT-OP-F Manual Assessment Start: 08/17/19 18:00 Freq: Status: Active Protocol: Document 08/17/19 10:30 NFW (Rec: 08/17/19 19:07 NFW [id number]) Manual Assessments Soft Tissue Assessment Soft Tissue Mobility Assessment Soft tissue tightness bilateral hamstrings. PT-OP-G Mobility & Gait Start: 08/17/19 18:00 Freq: Status: Active Protocol: Document 08/17/19 10:30 NFW (Rec: 08/17/19 19:07 NFW [id number]) OP Gait Assessment Gait Gait Assistance Required: Independent Assistive Devices Assistive Device None Factors Limiting Gait Function Factors Limiting Gait Function Abnormal Tonal Influences, Decreased Activity Tolerance, Pain,Poor Balance Comments Gait Comments Right medial list in ambulation, min to no arms swing. Has normal stride lengths. Stair Climbing Evaluation Evaluation Level of Assist On Stairs Independent Devices Stair Climbing Assistive Devices Left Railing Technique/Endurance Stair Climbing Direction Ascend and Descend Stair Climbing Technique Step to Step Number of Steps Climbed 6 Stair Climbing Set # Repetitions (reps) 2 Comments Stair Climbing Comments Step to gait leading with left in ascension, and right with descension. PT-OP-H Neuro Start: 08/17/19 18:00 Freq: Status: Active Protocol: Document 08/17/19 10:30 NFW (Rec: 08/17/19 19:07 NFW [id number]) Sensation Evaluation Gross Sensation Gross Sensation WNL PT-OP-J Posture/Palpation/Skin Start: 08/17/19 18:00 Freq: Status: Active Protocol: Document 08/17/19 10:30 NFW (Rec: 08/17/19 19:07 NFW [id number]) Posture Evaluation Position Standing L-Spine Posture Flattened Arm Posture (L) Internally Rotated,(R) Internally Rotated Pelvis Posture Posterior Tilted Knee Posture (L) Genu Recurvatum,(R) Genu Recurvatum Ankle/Foot Posture (L) Calcaneal Eversion,(R) Calcaneal Eversion,(L) Forefoot Abducted,(R) Forefoot Abducted Foot Arch (L) No Arch,(R) No Arch Palpation Assessment Location One Palpation Location Post Thighs Palpation Details No real point tenderness. PT-OP-K Range of Motion Start: 08/17/19 18:00 Freq: Status: Active Protocol: Document 08/17/19 10:30 NFW (Rec: 08/17/19 19:07 NFW [id number]) Lumbar Spine Range of Motion Lumbar Spine Active Testing Position Standing Comments WFL Hip Goniometric Range of Motion Hip Right Passive Hip ROM WFL Yes Testing Position Supine Straight Leg Raise 70 Left Passive Hip ROM WFL Yes Testing Position Supine Straight Leg Raise 80 Hip ROM Limitations Hip ROM Limitations Soft Tissue Tightness PT-OP-M Strength Start: 08/17/19 18:00 Freq: Status: Active Protocol: Document 08/17/19 10:30 NFW (Rec: 08/17/19 19:07 NFW [id number]) Hip Strength Hip Manual Muscle Testing Right Flexion (L2) 4 Good Abduction 4 Good Left Flexion (L2) 4 Good Abduction 4 Good Knee Strength Knee Manual Muscle Testing Right Flexion (S2) 4 Good Extension (L3) 4 Good Left Flexion (S2) 4 Good Extension (L3) 4 Good Ankle/Foot Strength Ankle and Foot Manual Muscle Testing Right Dorsiflexion (L4) 5 Normal Plantarflexion (S1) 5 Normal Left Dorsiflexion (L4) 5 Normal Plantarflexion (S1) 5 Normal PT-OP-Q Treatments Start: 08/17/19 18:00 Freq: Status: Active Protocol: Document 09/14/19 11:17 LRN (Rec: 09/14/19 12:11 LRN [id number]) Cardio Equipment Treadmill Duration (Minutes) 10 Speed 2.2 Incline 0 Gym Equipment Shuttle Recovery eccentric calf raises Details BLE Resistance 50# Shuttle Recovery Platform Stable Reps/Time 2x15 pause 2 sec into eccentric stretch shuttle recovery Details BLE Resistance 50# Shuttle Recovery Platform Stable Reps/Time 2x15 pause 5 sec Therapeutic Exercises Supine Exercises Hamstring stretch Supine Exercise Name Hamstring stretch Side bilateral Comments Pt with ~80 deg's PSLR prior to hamstring tight SLR with leg in ER Supine Exercise Name Medial Quad strengthening Side bilateral Reps/Minutes 10x each Sitting Exercises Knee flexion Sitting Exercise Name Knee flex Side bilateral Equipment Used Lev 2 T-Band Reps/Minutes 15x Comments Pt hamstring fatigued 2 Sitting Exercise Name seated active knee extension Comments Multiple attempts made, but pt c/o knee pain Standing Exercises sit to stand Standing Exercise Name Sit to Stand Equipment Used Foam cushion on chair Reps/Minutes 5x Comments Use of UE's Manual Therapy Treatment Manual Techniques MWM Type MWM: medial glide tib/fit with min IR on extension Body Location L knee Body Position Sitting Reps/Duration 5' Comments Variable attempts for manual mob with sometimes medial glide of patella. PT-OP-R Modalities Start: 08/17/19 18:00 Freq: Status: Active Protocol: Document 09/14/19 11:17 LRN (Rec: 09/14/19 12:11 LRN [id number]) Hot Pack/Cold Pack Treatment CP Location B HS Patient Position Supine Treatment Duration (minutes) 10 Patient Tolerance Good PT-OP-T Assessment and Plan Start: 08/17/19 18:00 Freq: Status: Active Protocol: Document 09/14/19 11:17 LRN (Rec: 09/14/19 12:11 LRN [id number]) Physical Therapy Assessment Assessment Summary Assessment Start TM warm up. Poor tolerance to Quad strengthening due to arthritis . She tolerated active knee ext mildly better with MWM. No change with use of shuttle for ankle strengthening. She has no knee pain with hamstring strengthening, mobility is fairly good. Physical Therapy Plan Frequency and Duration Frequency of Treatment 2x/Week Duration of Treatment 8 weeks Plan of Care Start Date 08/17/19 Plan of Care End Date 10/19/19 Next Visit Focus/Plan Next Note Type Treatment Note Next Visit Plan Pt will cont therapy with new primary therapist Ivis Chiu PT. Review HEP, attends gym: Continue to progress exercises for home as pt is pretty sedentary, assess manual hamstring work.
--- NOTE | 2019-09-21 14:40 | PT.OTN ---
Current Diagnoses Pain in right leg (09/21/19) Pain in left leg (09/21/19) Unsteadiness on feet (09/21/19) Physical Therapy Treatment Note PT-OP-A Visit Information Start: 08/17/19 18:00 Freq: Status: Active Protocol: Document 09/21/19 13:50 SP (Rec: 09/21/19 14:34 SP [id number]) Out-Patient Physical Therapy Visit Information Visit Information Visit Type Treatment Note Visit Start Time 13:50 Visit Stop Time 14:40 Total Visit Minutes 50 Visit Number 9 Number of SALES AGENT MARINE INSURANCE Visits 1 PT-OP-B Current Condition Start: 08/17/19 18:00 Freq: Status: Active Protocol: Document 08/17/19 10:30 NFW (Rec: 08/17/19 19:07 NFW [id number]) Current Condition History of Current Condition Onset Date At least two years Current Complaints Pain back of both thighs. (no pain front of thighs) History of Current Condition Onset insidious. Treatment Goals Patient/Caregiver Goals Pt has fear of falling and would like to regain confidence with walking on her feet and performing her daily activities including her exercises at [facility]. Current Functional Impairments (Reported) Functional Limitations- ADL's Sleeps in recliner on main level to avoid going up 17 stairs to the bedroom and for personal reasons. Functional Limitations- Mobility/Gait Difficulty in going up and down curbs/steps if no handrails are available. Functional Limitations- Recreation/ Apprehensions to using the [employer] treadmill at [facility] due to difficulty stepping up and down from the treadmill. PT-OP-C Subjective Start: 08/17/19 18:00 Freq: Status: Active Protocol: Document 09/21/19 13:50 SP (Rec: 09/21/19 14:34 SP [id number]) OP-PT Subjective Patient Comments Patient Comments Pt her knees hurt really band afte last tx, usure if the new exercises were the cause. She stated took 3 extras strength Arthritis Tylenol before coming today. No significant changes since last tx. Pt stated saw her cancer doc and no concerns. PT-OP-D Balance Start: 08/17/19 18:00 Freq: Status: Active Protocol: Document 09/10/19 13:48 SP (Rec: 09/13/19 11:18 SP [id number]) Olvera Balance Assessment Total Score Olvera Impairment Rating 1 to 19% Impaired (Score 45-55 ) PT-OP-E Functional Tests Start: 08/17/19 18:00 Freq: Status: Active Protocol: Document 09/10/19 13:48 SP (Rec: 09/13/19 11:14 SP [id number]) Functional Tests Dynamic Gait Index (DGI) Score 21/24 DGI Impairment Rating 1 to <20% Impaired (Score 20- 23) PT-OP-F Manual Assessment Start: 08/17/19 18:00 Freq: Status: Active Protocol: Document 08/17/19 10:30 NFW (Rec: 08/17/19 19:07 NFW [id number]) Manual Assessments Soft Tissue Assessment Soft Tissue Mobility Assessment Soft tissue tightness bilateral hamstrings. PT-OP-G Mobility & Gait Start: 08/17/19 18:00 Freq: Status: Active Protocol: Document 08/17/19 10:30 NFW (Rec: 08/17/19 19:07 NFW [id number]) OP Gait Assessment Gait Gait Assistance Required: Independent Assistive Devices Assistive Device None Factors Limiting Gait Function Factors Limiting Gait Function Abnormal Tonal Influences, Decreased Activity Tolerance, Pain,Poor Balance Comments Gait Comments Right medial list in ambulation, min to no arms swing. Has normal stride lengths. Stair Climbing Evaluation Evaluation Level of Assist On Stairs Independent Devices Stair Climbing Assistive Devices Left Railing Technique/Endurance Stair Climbing Direction Ascend and Descend Stair Climbing Technique Step to Step Number of Steps Climbed 6 Stair Climbing Set # Repetitions (reps) 2 Comments Stair Climbing Comments Step to gait leading with left in ascension, and right with descension. PT-OP-H Neuro Start: 08/17/19 18:00 Freq: Status: Active Protocol: Document 08/17/19 10:30 NFW (Rec: 08/17/19 19:07 NFW [id number]) Sensation Evaluation Gross Sensation Gross Sensation WNL PT-OP-J Posture/Palpation/Skin Start: 08/17/19 18:00 Freq: Status: Active Protocol: Document 08/17/19 10:30 NFW (Rec: 08/17/19 19:07 NFW [id number]) Posture Evaluation Position Standing L-Spine Posture Flattened Arm Posture (L) Internally Rotated,(R) Internally Rotated Pelvis Posture Posterior Tilted Knee Posture (L) Genu Recurvatum,(R) Genu Recurvatum Ankle/Foot Posture (L) Calcaneal Eversion,(R) Calcaneal Eversion,(L) Forefoot Abducted,(R) Forefoot Abducted Foot Arch (L) No Arch,(R) No Arch Palpation Assessment Location One Palpation Location Post Thighs Palpation Details No real point tenderness. PT-OP-K Range of Motion Start: 08/17/19 18:00 Freq: Status: Active Protocol: Document 08/17/19 10:30 NFW (Rec: 08/17/19 19:07 NFW [id number]) Lumbar Spine Range of Motion Lumbar Spine Active Testing Position Standing Comments WFL Hip Goniometric Range of Motion Hip Right Passive Hip ROM WFL Yes Testing Position Supine Straight Leg Raise 70 Left Passive Hip ROM WFL Yes Testing Position Supine Straight Leg Raise 80 Hip ROM Limitations Hip ROM Limitations Soft Tissue Tightness PT-OP-M Strength Start: 08/17/19 18:00 Freq: Status: Active Protocol: Document 08/17/19 10:30 NFW (Rec: 08/17/19 19:07 NFW [id number]) Hip Strength Hip Manual Muscle Testing Right Flexion (L2) 4 Good Abduction 4 Good Left Flexion (L2) 4 Good Abduction 4 Good Knee Strength Knee Manual Muscle Testing Right Flexion (S2) 4 Good Extension (L3) 4 Good Left Flexion (S2) 4 Good Extension (L3) 4 Good Ankle/Foot Strength Ankle and Foot Manual Muscle Testing Right Dorsiflexion (L4) 5 Normal Plantarflexion (S1) 5 Normal Left Dorsiflexion (L4) 5 Normal Plantarflexion (S1) 5 Normal PT-OP-Q Treatments Start: 08/17/19 18:00 Freq: Status: Active Protocol: Document 09/21/19 13:50 SP (Rec: 09/21/19 14:34 SP [id number]) Cardio Equipment Treadmill Duration (Minutes) 10 Speed 2.2 Incline 0 Therapeutic Exercises Supine Exercises SLR with leg in ER Supine Exercise Name Medial Quad strengthening Side bilateral Reps/Minutes 10x each Prone Exercises Hs curl Side bilateral Equipment Used AROM Reps/Minutes 2x5 Standing Exercises sit to stand Standing Exercise Name Sit to Stand Equipment Used Foam cushion on chair, raised table Reps/Minutes 5x Comments Use of BUE's very little pain, decreased UE support increases B pain ant 4 Standing Exercise Name tandem stance Equipment Used near raised table Reps/Minutes 10 sec hold x3 sets each foot pos Comments arms at sides 3 Standing Exercise Name step taps Equipment Used bottom step x2 sets, Bosu 3rd set Reps/Minutes 3x5 alternating BLE PT-OP-R Modalities Start: 08/17/19 18:00 Freq: Status: Active Protocol: Document 09/21/19 14:34 SP (Rec: 09/21/19 14:35 SP [id number]) Hot Pack/Cold Pack Treatment CP Location B HS Patient Position Supine Treatment Duration (minutes) 10 Patient Tolerance Good Comments decreased pain B HS from 10/29 from 03/29 (post ex) PT-OP-T Assessment and Plan Start: 08/17/19 18:00 Freq: Status: Active Protocol: Document 09/21/19 13:50 SP (Rec: 09/21/19 14:34 SP [id number]) Physical Therapy Assessment Goals Five Impairment Difficulty with ascending and descending stairs Short Term Goal (STG) Ascend and descend stairs with use of handrail, step over step for 4 steps. GOAL MET 09/10/19 STG Duration 09/18/19 Embryology Professor Goal (LTG) Ascend and descend stairs with use of handrail, step over step for 18 steps. LTG Duration 10/19/19 Four Impairment Loss of confidence with daily activities - ABC scoring Embryology Professor Goal (LTG) Improving scoring to moderate level functioning (score of 50 -80) LTG Duration 10/19/19 Three Impairment Low LEFS Score Short Term Goal (STG) Improve score of LEFs from 60- 79% impaired to 40-59% GOAL MET 09/10/19 STG Duration 09/18/19 Shelter Goal (LTG) Improve score of LEFs to 20-39 % impaired. LTG Duration 10/19/19 Two Impairment Loss of balance as noted with Olvera Balance Testing Embryology Professor Goal (LTG) Improve scoring to 1-19% impaired. LTG Duration 10/19/19 One Impairment Decrease ADL functional activity level - FAAM scoring Short Term Goal (STG) Improve score from 60-79 restriced to 40-59% STG Duration 09/18/19 Embryology Professor Goal (LTG) Improve score to 20-39% restricted GOAL MET 09/10/19 (score 16) LTG Duration 10/19/19 Assessment Summary Assessment Started today with TM warm up. Pt had improved tolerance to quad strengthening today in supine. Unable to complete sit to stand ex with out BUe support secondary to anterior R>L knee pain but almost none with BUE support. Trialed tandem and step tap standing exercises for core/ LE activation with positive feedback, cued for COG over Mary Jo and awareness and soft knee with improvement durign 3rd set. Physical Therapy Plan Frequency and Duration Frequency of Treatment 2x/Week Duration of Treatment 8 weeks Plan of Care Start Date 08/17/19 Plan of Care End Date 10/19/19 Therapeutic Interventions Therapeutic Interventions Balance Training,Coordination Training,Gait Training,Home Exercise Program,Neuromuscular Re-education,Self-Care/Home Management,Soft Tissue Mobilization,Therapeutic Activities,Therapeutic Exercises,Vestibular Rehabilitation Discharge Physical Therapy Discharge Reasons Goals Met Next Visit Focus/Plan Next Note Type Treatment Note Next Visit Plan Pt will cont therapy with new primary therapist Ivis Chiu, PT. Review HEP, attends gym: Continue to progress exercises for home as pt is pretty sedentary, assess manual hamstring work.
--- NOTE | 2019-10-05 15:06 | PT.OTN ---
Current Diagnoses Pain in right leg (10/05/19) Pain in left leg (10/05/19) Unsteadiness on feet (10/05/19) Physical Therapy Treatment Note PT-OP-A Visit Information Start: 08/17/19 18:00 Freq: Status: Active Protocol: Document 10/05/19 13:52 MB (Rec: 10/05/19 15:05 MB [id number]) Out-Patient Physical Therapy Visit Information Visit Information Visit Type Treatment Note Visit Start Time 13:52 Visit Stop Time 14:32 Total Visit Minutes 40 Visit Number 10 PT-OP-B Current Condition Start: 08/17/19 18:00 Freq: Status: Active Protocol: Document 08/17/19 10:30 NFW (Rec: 08/17/19 19:07 NFW [id number]) Current Condition History of Current Condition Onset Date At least two years Current Complaints Pain back of both thighs. (no pain front of thighs) History of Current Condition Onset insidious. Treatment Goals Patient/Caregiver Goals Pt has fear of falling and would like to regain confidence with walking on her feet and performing her daily activities including her exercises at [employer]. Current Functional Impairments (Reported) Functional Limitations- ADL's Sleeps in recliner on main level to avoid going up 17 stairs to the bedroom and for personal reasons. Functional Limitations- Mobility/Gait Difficulty in going up and down curbs/steps if no handrails are available. Functional Limitations- Recreation/ Apprehensions to using the [employer] treadmill at [employer] due to difficulty stepping up and down from the treadmill. PT-OP-C Subjective Start: 08/17/19 18:00 Freq: Status: Active Protocol: Document 10/05/19 13:52 MB (Rec: 10/05/19 15:05 MB [id number]) OP-PT Subjective Patient Comments Patient Comments Pt states that she had diarrhea after taking Prednisone. Her doctor put her on Prednisone d/t low oxygenation and cough. She states that her O2 sats were 88%. She went to the ED d/t diarrhea. She does not think that she had the flu but had allergic reaction to Prednisone. She denies SOB. She has a history of asthma and flare-up once a year. Her O2 sats today are 96% on RA. She is not yet off her chemo drug. Mammogram was clear and blood work was good. Pt states that she still has to use her hands to push up to stand. The Prednisone helped her hamstring pain. Pt reports cardiac work-up 4 years ago. She was put on BP medication and statin. PT-OP-D Balance Start: 08/17/19 18:00 Freq: Status: Active Protocol: Document 09/10/19 13:48 SP (Rec: 09/13/19 11:18 SP [id number]) Olvera Balance Assessment Total Score Olvera Impairment Rating 1 to 19% Impaired (Score 45-55 ) PT-OP-E Functional Tests Start: 08/17/19 18:00 Freq: Status: Active Protocol: Document 09/10/19 13:48 SP (Rec: 09/13/19 11:14 SP [id number]) Functional Tests Dynamic Gait Index (DGI) Score 21/24 DGI Impairment Rating 1 to <20% Impaired (Score 20- 23) PT-OP-F Manual Assessment Start: 08/17/19 18:00 Freq: Status: Active Protocol: Document 08/17/19 10:30 NFW (Rec: 08/17/19 19:07 NFW [id number]) Manual Assessments Soft Tissue Assessment Soft Tissue Mobility Assessment Soft tissue tightness bilateral hamstrings. PT-OP-G Mobility & Gait Start: 08/17/19 18:00 Freq: Status: Active Protocol: Document 08/17/19 10:30 NFW (Rec: 08/17/19 19:07 NFW [id number]) OP Gait Assessment Gait Gait Assistance Required: Independent Assistive Devices Assistive Device None Factors Limiting Gait Function Factors Limiting Gait Function Abnormal Tonal Influences, Decreased Activity Tolerance, Pain,Poor Balance Comments Gait Comments Right medial list in ambulation, min to no arms swing. Has normal stride lengths. Stair Climbing Evaluation Evaluation Level of Assist On Stairs Independent Devices Stair Climbing Assistive Devices Left Railing Technique/Endurance Stair Climbing Direction Ascend and Descend Stair Climbing Technique Step to Step Number of Steps Climbed 6 Stair Climbing Set # Repetitions (reps) 2 Comments Stair Climbing Comments Step to gait leading with left in ascension, and right with descension. PT-OP-H Neuro Start: 08/17/19 18:00 Freq: Status: Active Protocol: Document 08/17/19 10:30 NFW (Rec: 08/17/19 19:07 NFW [id number]) Sensation Evaluation Gross Sensation Gross Sensation WNL PT-OP-J Posture/Palpation/Skin Start: 08/17/19 18:00 Freq: Status: Active Protocol: Document 08/17/19 10:30 NFW (Rec: 08/17/19 19:07 NFW [id number]) Posture Evaluation Position Standing L-Spine Posture Flattened Arm Posture (L) Internally Rotated,(R) Internally Rotated Pelvis Posture Posterior Tilted Knee Posture (L) Genu Recurvatum,(R) Genu Recurvatum Ankle/Foot Posture (L) Calcaneal Eversion,(R) Calcaneal Eversion,(L) Forefoot Abducted,(R) Forefoot Abducted Foot Arch (L) No Arch,(R) No Arch Palpation Assessment Location One Palpation Location Post Thighs Palpation Details No real point tenderness. PT-OP-K Range of Motion Start: 08/17/19 18:00 Freq: Status: Active Protocol: Document 08/17/19 10:30 NFW (Rec: 08/17/19 19:07 NFW [id number]) Lumbar Spine Range of Motion Lumbar Spine Active Testing Position Standing Comments WFL Hip Goniometric Range of Motion Hip Right Passive Hip ROM WFL Yes Testing Position Supine Straight Leg Raise 70 Left Passive Hip ROM WFL Yes Testing Position Supine Straight Leg Raise 80 Hip ROM Limitations Hip ROM Limitations Soft Tissue Tightness PT-OP-M Strength Start: 08/17/19 18:00 Freq: Status: Active Protocol: Document 08/17/19 10:30 NFW (Rec: 08/17/19 19:07 NFW [id number]) Hip Strength Hip Manual Muscle Testing Right Flexion (L2) 4 Good Abduction 4 Good Left Flexion (L2) 4 Good Abduction 4 Good Knee Strength Knee Manual Muscle Testing Right Flexion (S2) 4 Good Extension (L3) 4 Good Left Flexion (S2) 4 Good Extension (L3) 4 Good Ankle/Foot Strength Ankle and Foot Manual Muscle Testing Right Dorsiflexion (L4) 5 Normal Plantarflexion (S1) 5 Normal Left Dorsiflexion (L4) 5 Normal Plantarflexion (S1) 5 Normal PT-OP-Q Treatments Start: 08/17/19 18:00 Freq: Status: Active Protocol: Document 10/05/19 13:52 MB (Rec: 10/05/19 15:05 MB [id number]) Cardio Equipment Recumbent Bicycle Duration (Minutes) 5 Resistance 6 Other O2 sats 96% and HR 88 BPM, pt reports upper chest tight Bicycle (Upright) Duration (Minutes) 2 Resistance 4 Other Pt states she doesn't like it as much as recumbent Therapeutic Exercises Sitting Exercises Sit to stands Comments Pt is unable to perform sit to stand without UE support Standing Exercises Romberg EO, EC, attempted SLS Comments 30 sec Romberg EO and EC, 2 sec B SLS Other Exercises Stairs today Comments 18 steps with step-to gait and 1 rail PT-OP-R Modalities Start: 08/17/19 18:00 Freq: Status: Active Protocol: Document 09/21/19 14:34 SP (Rec: 09/21/19 14:35 SP [id number]) Hot Pack/Cold Pack Treatment CP Location B HS Patient Position Supine Treatment Duration (minutes) 10 Patient Tolerance Good Comments decreased pain B HS from 10/29 from 03/29 (post ex) PT-OP-T Assessment and Plan Start: 08/17/19 18:00 Freq: Status: Active Protocol: Document 10/05/19 13:52 MB (Rec: 10/05/19 15:05 MB [id number]) Physical Therapy Assessment Goals Five Docketing Specialist Goal (LTG) 10/05/19: Pt requires step-to gait pattern for 18 stairs and use use of rail. She states that she has pain in knees from arthritis. Four Retirement Goal (LTG) 10/05/19: ABC score reflects 78.75% confidence. Three Retirement Goal (LTG) 10/05/19: LEF reflects 48.75% impairment. Two Docketing Specialist Goal (LTG) 10/05/19: Pt presents with normal Romberg and Romberg with eyes closed, increased sway with eyes closed. 2 sec hold B SLS. Assessment Summary Assessment Pt has met the following PT goal since reassessment: ABC score, reflecting increased confidence with daily activities. She has progressed towards LEF score, balance and is able to ascend and descend 18 steps with step-to gait d/t knee pain. Pt denies falls. She demonstrates I use of recumbent bike and upright bike after instruction this date. She is agreeable to understanding the increased safety of stationary bike compared to elliptical at the gym. Pt con't to c/o cough and some upper chest tightness. She is DASILVA after 5' on the recumbent bike and her O2 sats are 96% on RA and HR 88 BPM. BP cuff does not read. Pt con' t to present with polypharmacy and taking statin and chemo drug as part of medication list. 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 She also states she has an asthma flare-up each year but does not describe COPD when asked. Once again, PT is concerned about an underlying metabolic contribution to B hamstring pain. Pt denies back pain. She might benefit from further investigation into her medication list including statin per physicians/ assembler dielectric heater. She con't to need her hands to push up from the chair. Pt and PT agree to d/c PT at this date and she will follow-up with her provider for physical 10/18/19 . If she presents with worsening weakness or decreased mobility, she will follow-up with PT in the future. Given that she felt better in her knees and hamstrings when taking short dose of Prednisone, she might have an underlying orthopedic inflammatory/degenerative process. Given B LE pain, she might benefit from having her spine assessed. Physical Therapy Plan Other Referrals/Consults Referrals/Consults Recommended Follow-up with providers about medications, ? underlying cardiopulmonary condition given chronic cough, asthma, medication list, consider work -up for spine given LE pain Discharge Physical Therapy Discharge Comments Pt has maximized PT potential at this time.
== END 2019-10-05 14:45 ==
LOC: PHYS 13:45
PROVIDERS: PCP Internal Medicine; Visit Provider Internal Medicine
DX: M79.604 Pain in right leg (principal); M79.605 Pain in left leg; R26.81 Unsteadiness on feet
CPT/HCPCS: 97010; 97110; 97112; 97116; 97140; 97162; 97530; 97535

== ENCOUNTER → 2021-03-07 16:08 | Outpatient (CLI) | payer MEDICARE, OTHER, SELFPAY ==
--- NOTE | 2021-03-07 16:12 | DI.RAD.S_ITS ---
PROCEDURE: XR FEMUR LT MIN 2V INDICATIONS: LEG PAIN, HX OF CANCER TECHNIQUE: 2 views of the femur were acquired. COMPARISON: None. FINDINGS: Bones: No fractures or dislocations. No suspicious bony lesions. Soft tissues: No suspicious soft tissue calcifications or masses. IMPRESSION: No acute fracture. No osseous lesion. If symptoms and/or clinical suspicion for pathology persist, further assessment with repeat, or advanced imaging (e.g., CT, MRI, or bone scan) may be helpful for further assessment. Dictated by: Nan Blood M.D. on 03/07/2021 at 16:57 Approved by: Nan Blood M.D. on 03/07/2021 at 16:57
--- NOTE | 2021-03-07 16:12 | DI.RAD.S_ITS ---
PROCEDURE: XR FEMUR RT MIN 2V INDICATIONS: LEG PAIN, HX OF CANCER TECHNIQUE: 2 views of the femur were acquired. COMPARISON: None. FINDINGS: Bones: No fractures or dislocations. No suspicious bony lesions. Soft tissues: No suspicious soft tissue calcifications or masses. IMPRESSION: No acute fracture. No osseous lesion. If symptoms and/or clinical suspicion for pathology persist, further assessment with repeat, or advanced imaging (e.g., CT, MRI, or bone scan) may be helpful for further assessment. Dictated by: Nan Blood M.D. on 03/07/2021 at 16:56 Approved by: Nan Blood M.D. on 03/07/2021 at 16:56
== END ==
PROVIDERS: PCP Internal Medicine; Referring Provider Internal Medicine; Visit Provider Internal Medicine
DX: Z85.9 Personal history of malignant neoplasm, unspecified; M79.604 Pain in right leg
CPT/HCPCS: 73552

== ENCOUNTER 2023-01-09 13:56 | Outpatient (CLI) | payer MEDICARE, OTHER, SELFPAY ==
[2023-01-09] VITALS (7 sets, daily range): BP systolic 140–176; BP diastolic 72–91; PULSE 85–96; RESP 12–18; TEMP 36.6; O2SAT 93–97
--- NOTE | 2023-01-09 13:58 | DI.RAD.S_ITS ---
PROCEDURE: PAIN L INTERLAMINAR/CAUDAL INJ INDICATIONS: SPONDYLOSIS COMPARISON: [facility], RG, MRI L-SPINE W/O CONTRAST, 12/16/2022, 15:33. FINDINGS: Fluoroscopic spot filming was performed to verify placement of a spinal needle at the L3-L4 level, as labeled on the films. Appropriate location of the needle tip was confirmed by injection of iodinated contrast. IMPRESSION: Intraprocedural examination within normal limits. Dictated by: Jason Soni M.D. on 01/09/2023 at 14:20 Approved by: Jason Soni M.D. on 01/09/2023 at 14:20
[2023-01-09] MEDS: MIDAZOLAM 2 MG/2 ML VIAL 1 MG IV (14:37)
[2023-01-09] MEDS: methylPREDNISolone acetate 80 MG/ML VIAL INJ (14:43)
[2023-01-09] MEDS: IOPAMIDOL 15 ML VIAL 3 ML INJ (14:43)
[2023-01-09] MEDS: BUPIVACAINE 0.25% (PF) VIAL 2 ML INJ (14:43)
--- NOTE | 2023-01-09 16:51 | P.PCN_ITS ---
Date/Time/Diagnoses Date of procedure: 01/09/23 Time of procedure: 14:30 Procedure Notes Physician: Nate Anderson Total Fluoroscopy time (seconds): 16 Total sedation minutes: 13 Procedure in detail & Post-procedure care: L3-4 Interlaminar Epidural Steroid Injection Indications: Radha is referred by Dr. Wallis for treatment of lumbar radiculopathy with low back and leg pain. Preoperative diagnosis: Lumbar radiculopathy Postoperative diagnosis: Same Focused Examination: Ax3 Mood and affect are normal Vital Signs: VSS ASA: 2 Consent: Following review of allergies and potential side effects/complications, including, but not necessarily limited to, infection, allergic reaction, local tissue breakdown, stroke, temporary or permanent nerve injury, paralysis, and possible , the patient indicated that they understood and agreed to proceed.? An informed consent document was signed by the patient, witnessed by a nurse and placed in the patient's chart.? Additionally, other treatment options including medications and physical therapy were reviewed with the patient. All questions were answered. Site was then marked. Anesthesia: After review of previous anesthetic history and IV conscious sed ation, the patient was deemed safe to proceed with today's procedure with IV conscious sedation. IV sedation was accomplished with midazolam 1 mg IV administered by the RN after order by Dr. Anderson. Sedation was titrated to patient comfort during the course of the procedure. Patient remained responsive to all verbal commands. Position: Prone Monitoring: NIBP, Pulse oximetry, 3 lead EKG Needle used: 18 G 3.5? Tuohy Contrast: Isovue 300M Injectate: Depo-Medrol 80 mg with 0.25% Bupivacaine 2 mL Technique: The skin was prepped with chloraprep and then draped in a sterile fashion. Time out was performed as per protocol. Oxygen applied via NC. Skin and subcutaneous structures of the needle entry site was then infiltrated with 3 mL of lidocaine 1%. Under AP, lateral and contralateral oblique fluoroscopic control, the Tuohy needle was guided into the L3-4 epidural space. The space was accessed with loss of resistance technique. Isovue 300M was then injected and the spread was consistent with the epidural space. There was no evidence for intravascular or intrathecal uptake. Test dose of 1% lidocaine 1 cc was given. The patient's legs remained strong and there was no discomfort with injection of the test dose. After negative aspiration, the above-mentioned injectate was then slowly administered and the needle withdrawn. The patient expressed no unusual discomfort or paresthesias during the injection. Band-Aids applied to injection sites. EBL: less than 1 ml Complications: None Post Procedure: Patient was taken to the recovery and monitored. The patient was provided a Pain Log to continue to record the patient's response to the target- specific procedure prior to the patient's follow-up visit with the referring physician. Patient was stable upon discharge. Detailed post procedure instructions were provided. Patient was asked to call in the event of worsening pain, fever, weakness, numbness or bladder or bowel incontinence.
== END 2023-01-09 15:11 | disposition home or self-care (01) ==
LOC: RAD 13:58
PROVIDERS: PCP Internal Medicine; Referring Provider Anesthesiology; Visit Provider Anesthesiology
DX: M54.16 Radiculopathy, lumbar region (principal)
CPT/HCPCS: 62323; 99152; J1040; J3490

== ENCOUNTER 2023-02-26 13:15 | Outpatient (CLI) | payer MEDICARE, OTHER, SELFPAY ==
[2023-02-26] VITALS (7 sets, daily range): BP systolic 142–177; BP diastolic 77–88; PULSE 81–84; RESP 12–18; TEMP 36.2; O2SAT 92–98
[2023-02-26] MEDS: MIDAZOLAM 2 MG/2 ML VIAL IV (13:40)
--- NOTE | 2023-02-26 13:51 | PC.NURSE ---
Patient given 2mg versed via IV, Back prepped by Dr Anderson patient continues to move, kicking feet up, up able to respond to verbal stimulation, needed back rub, vital signs and oxygen remained stable. Unable to proceed with injection with patient moving. procedure was canceled. Patient was rolled onto [facility]. Patient responding to verbal communication, drowsy, oxygen sats 96% RA. Patient taken to post procedure room with Kirstin SALEEM
--- NOTE | 2023-02-26 14:04 | PC.NURSE ---
Patient received from STIVEN Duque. Brought back via [facility] to post procedure room. Patient drowsy but awakens to verbal stimuli. VSS, SR, patient in NAD.
--- NOTE | 2023-02-26 16:56 | PM.PROC.IR.1 ---
Date/Time/Diagnoses Date of procedure: 02/26/23 Time of procedure: 14:00 Procedure Notes Physician: Nate Anderson Total Fluoroscopy time (seconds): 0 Total sedation minutes: 5 Procedure in detail & Post-procedure care: Interlaminar Epidural Steroid Injection - Canceled Indications: Radha is presenting for treatment of lumbar radiculopathy with low back and leg pain. Preoperative diagnosis: Lumbar radiculopathy Postoperative diagnosis: Same Focused Examination: Ax3 Mood and affect are normal Vital Signs: VSS ASA: 3 Consent: Following review of allergies and potential side effects/complications, including, but not necessarily limited to, infection, allergic reaction, local tissue breakdown, stroke, temporary or permanent nerve injury, paralysis, and possible , the patient indicated that they understood and agreed to proceed.? An informed consent document was signed by the patient, witnessed by a nurse and placed in the patient's chart.? Additionally, other treatment options including medications and physical therapy were reviewed with the patient. All questions were answered. Site was then marked. Anesthesia: After review of previous anesthetic history and IV conscious sedation, the patient was deemed safe to proceed with today's procedure with IV conscious sedation. IV sedation was accomplished with Versed 2 mg administered by the RN after order by Dr. Anderson. After administration of sedation, patient was difficult to arouse and was unable to remain still despite repeated instruction to do so. The procedure was canceled. She was transferred to a hospital bed and awakened. Her vital signs were stable throughout. She was taken to recovery in stable condition. Post Procedure: Patient was stable upon discharge. Detailed instructions were provided. Patient was asked to call in the event of worsening pain, fever, weakness, numbness or bladder or bowel incontinence.
== END 2023-02-26 14:14 | disposition home or self-care (01) ==
LOC: RAD 13:16
PROVIDERS: PCP Internal Medicine; Referring Provider Anesthesiology; Visit Provider Anesthesiology
DX: M54.16 Radiculopathy, lumbar region (principal); Z53.09 Procedure and treatment not carried out because of other contraindication
CPT/HCPCS: J1040; J2250; J3490

== ENCOUNTER 2023-04-02 12:18 | Outpatient (CLI) | payer MEDICARE, OTHER, SELFPAY ==
[2023-04-02] VITALS (8 sets, daily range): BP systolic 134–159; BP diastolic 71–84; PULSE 94–99; RESP 12–18; TEMP 35.9; O2SAT 93–99
--- NOTE | 2023-04-02 12:22 | DI.RAD.S_ITS ---
PROCEDURE: PAIN L INTERLAMINAR/CAUDAL INJ INDICATIONS: SPONDYLOSIS COMPARISON: [facility], XA, PAIN L INTERLAMINAR/CAUDAL INJ, 01/09/2023, 14:37. FINDINGS: Fluoroscopic spot filming was performed to verify placement of spinal needles at the L4-L5 level(s), as labeled on the films. Appropriate location(s) of the needle tip(s) was confirmed by injection of iodinated contrast. IMPRESSION: Intraoperative guidance provided. Dictated by: Ned Noel M.D. on 04/02/2023 at 14:20 Approved by: Ned Noel M.D. on 04/02/2023 at 14:22
[2023-04-02] MEDS: MIDAZOLAM 2 MG/2 ML VIAL 1 MG IV (12:45)
[2023-04-02] MEDS: BUPIVACAINE 0.25% (PF) VIAL 2 ML INJ (12:47)
[2023-04-02] MEDS: methylPREDNISolone acetate 80 MG/ML VIAL INJ (12:47)
[2023-04-02] MEDS: IOPAMIDOL 15 ML VIAL 3 ML INJ (12:48)
--- NOTE | 2023-04-02 13:06 | P.PCN_ITS ---
Date/Time/Diagnoses Date of procedure: 04/02/23 Time of procedure: 13:00 Procedure Notes Physician: Nate Anderson Total Fluoroscopy time (seconds): 21 Total sedation minutes: 14 Procedure in detail & Post-procedure care: L4-5 Interlaminar Epidural Steroid Injection Indications: Radha is presenting for treatment of lumbar radiculopathy with low back and leg pain. Preoperative diagnosis: Lumbar radiculopathy Postoperative diagnosis: Same Focused Examination: Ax3 Mood and affect are normal Vital Signs: VSS ASA: 2 Consent: Following review of allergies and potential side effects/complications, including, but not necessarily limited to, infection, allergic reaction, local tissue breakdown, stroke, temporary or permanent nerve injury, paralysis, and possible , the patient indicated that they understood and agreed to pro ceed.? An informed consent document was signed by the patient, witnessed by a nurse and placed in the patient's chart.? Additionally, other treatment options including medications and physical therapy were reviewed with the patient. All questions were answered. Site was then marked. Anesthesia: After review of previous anesthetic history and IV conscious sedation, the patient was deemed safe to proceed with today's procedure with IV conscious sedation. IV sedation was accomplished with midazolam 1 mg administered by the RN after order by Dr. Anderson. Sedation was titrated to patient comfort during the course of the procedure. Patient remained responsive to all verbal commands. Position: Prone Monitoring: NIBP, Pulse oximetry, 3 lead EKG Needle used: 18 G 3.5? Tuohy Contrast: Isovue 300M Injectate: None Technique: The skin was prepped with chloraprep and then draped in a sterile fashion. Time out was performed as per protocol. Oxygen applied via NC. Skin and subcutaneous structures of the needle entry site was then infiltrated with 3 mL of lidocaine 1%. Under AP, lateral and contralateral oblique fluoroscopic control, the Tuohy needle was guided into the L4-5 epidural space. The space was accessed with loss of resistance technique. Isovue 300M was then injected and the spread was consistent with the epidural space. There was no evidence for intravascular or intrathecal uptake. The patient expressed bilateral posterior leg pain with injection of contrast. She noted that this discomfort was not improving so the procedure was aborted. Band-Aids applied to injection sites. EBL: less than 1 ml Complications: None Post Procedure: Patient was taken to the recovery and monitored. The patient was provided a Pain Log to continue to record the patient's response to the target- specific procedure prior to the patient's follow-up visit with the referring physician. Patient was stable upon discharge. Detailed post procedure instructions were provided. Patient was asked to call in the event of worsening pain, fever, weakness, numbness or bladder or bowel incontinence.
== END 2023-04-02 13:19 | disposition home or self-care (01) ==
PROVIDERS: PCP Internal Medicine; Referring Provider Anesthesiology; Visit Provider Anesthesiology
DX: M54.16 Radiculopathy, lumbar region (principal)
CPT/HCPCS: 62323; 99152; J1040; J2250; J3490

== ENCOUNTER 2024-01-23 16:05 | Emergency (ER) | payer MEDICARE, OTHER, SELFPAY ==
[2024-01-23] VITALS (15 sets, daily range): BP systolic 132–189; BP diastolic 63–93; PULSE 71–90; RESP 16–18; TEMP 36.7–36.8; O2SAT 91–100; BMI 23.4
[2024-01-23] MEDS: PANTOPRAZOLE 40 MG VIAL IV (17:13)
[2024-01-23] MEDS: GLUCAGON,HUMAN RECOMBINANT 1 MG/ML VIAL IV (17:14)
[2024-01-23] MEDS: SODIUM CHLORIDE 0.9% 1,000 ML 1000 ML IV (17:53)
[2024-01-23 17:57] LABS: Add Manual Diff / Slide Review NO; Basophils Absolute Auto 0 /uL (0-100); Basophils Percent Auto 0.4 % (0-2); Eosinophils Absolute Auto 100 /uL (0-450); Eosinophils Percent Auto 1.7 % (2-4); Hematocrit 34.4 % (36-46); Hemoglobin 11.7 g/dL (12.0-16.0); Lymphocytes Absolute Auto 2000 /uL (1100-4500); Lymphocytes Percent Auto 24.3 % (25-40); Mean Corpuscular HGB Conc 33.9 % (30-36); Mean Corpuscular Volume 94.3 fL (80-100); Monocytes Absolute Auto 500 /uL (0-900); Monocytes Percent Auto 5.6 % (3-14); Neutrophils Absolute Auto 5700 /uL (1500-7000); Platelet Count 385 X10^3/uL (150-400); Red Blood Cell Count 3.65 X10^6/uL (4.0-5.2); Red Cell Distribution Width 13.2 % (11.6-14.8); White Blood Cell Count 8.4 X10^3/uL (4.5-11.0)
[2024-01-23 18:03] LABS: Alanine Aminotransferase 15 IU/L (<35); Albumin 3.7 g/dL (3.5-5.0); Albumin Globulin Ratio 0.9 (1.0-2.8); Alkaline Phosphatase 98 U/L (38-126); Aspartate Aminotransferase 22 IU/L (14-36); BUN Creatinine Ratio 26.2 (6-22); Bilirubin Total 0.6 mg/dL (0.2-1.3); Blood Urea Nitrogen 16 mg/dL (7-17); Calcium 9.4 mg/dL (8.4-10.2); Carbon Dioxide 28 mmol/L (22-32); Chloride 101 mmol/L (98-107); Estimated Glomerular Filt Rate > 60 mL/min (>60); Globulin 4.2 g/dL (1.7-4.1); Glucose 82 mg/dL (80-110); HEMOLYSIS 23 (0-50); Potassium 3.1 mmol/L (3.4-5.1); Sodium 138 mmol/L (137-145); Total Protein 7.9 g/dL (6.3-8.2)
--- NOTE | 2024-01-23 18:16 | ED.NAVMDI ---
HPI - Nausea/Vomiting/Diarrhea General Chief complaint: Nausea/Vomiting/Diarrhea Stated complaint: says she is choking, vomiting, HH sx on 01/02 Time Seen by Provider: 01/23/24 17:53 Source: patient Mode of arrival: Ambulatory History of Present Illness HPI Narrative: 78-year-old female presents by private vehicle from home for the sensation that food is stuck in her chest. Patient states that she underwent hiatal hernia repair on 12/[address] Rosado at [facility]. She states that she was supposed to be on a liquid diet and has up until 2 days ago been recovering well. Patient states that 2 days ago she had a lobster tail and since then she feels like food is getting stuck. She is able to tolerate her saliva, but she states that even trying to drink water is impossible and it all comes back up. Related Data Home Medications Medication Instructions Recorded Confirmed atorvastatin 80 mg tablet 80 mg PO BEDTIME 12/24/18 04/29/23 carvedilol 3.125 mg tablet 3.125 mg PO BID 12/24/18 04/29/23 trazodone 100 mg tablet 300 mg PO BEDTIME 12/24/18 04/29/23 albuterol sulfate 90 mcg/actuation 1 inh inhalation PRN 12/31/22 04/29/23 aerosol inhaler aripiprazole 2 mg tablet 2 mg PO DAILY 12/31/22 04/29/23 cholecalciferol (vitamin D3) 25 25 mcg PO DAILY 12/31/22 04/29/23 mcg (1,000 unit) capsule ferrous sulfate 325 mg (65 mg 325 mg PO DAILY 12/31/22 04/29/23 iron) tablet (FeroSul) fluticasone propionate 50 1 spray intranasal DAILY 12/31/22 04/29/23 mcg/actuation nasal spray,suspension ibuprofen 200 mg tablet 200 mg PO Q6H PRN 12/31/22 04/29/23 omeprazole 20 mg capsule,delayed 20 mg PO DAILY 12/31/22 04/29/23 release paroxetine HCl 40 mg tablet 40 mg PO DAILY 12/31/22 04/29/23 triamcinolone acetonide 0.025 % 1 applic topical DAILY 12/31/22 04/29/23 topical cream valsartan 40 mg tablet 40 mg PO DAILY 12/31/22 04/29/23 venlafaxine 150 mg 150 mg PO DAILY 12/31/22 04/29/23 capsule,extended release 24 hr Allergies Allergy/AdvReac Type Severity Reaction Status Date / Time latex [LATEX] Allergy Mild erythema Verified 01/23/24 17:49 dexamethasone [DEXAMETHASONE] AdvReac Severe depression, 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 Penicillins [PENICILLINS] AdvReac Severe Diarrhea Verified 01/23/24 17:49 Sulfa (Sulfonamide AdvReac Vomiting Verified 01/23/24 17:49 Antibiotics) Review of Systems Review of Systems Narrative: Negative except as noted above Patient History Medical History Lumbar radiculopathy Greater trochanteric bursitis of both hips Bilateral leg pain Low back pain Spinal stenosis, lumbar region with neurogenic claudication Mood disorder Dyslipidemia Hypertension Surgical History History of repair of hiatal hernia Status post hernia repair History of tonsillectomy History of cataract removal with insertion of prosthetic lens Status post breast lumpectomy Family History Father Hypertension Heart disease Mother Hypertension Social History household members: none education level: college occupational status: previously employed Smoking Status: Never smoker Smoking Status: Never smoker alcohol intake frequency: 0-2 drinks per day Substance Use Type: does not use Exam Initial Vital Signs Initial Vital Signs: Vital Signs Temperature 98.1 F 01/23/24 16:14 Pulse Rate 90 01/23/24 16:14 Respiratory Rate 18 01/23/24 16:14 Blood Pressure 140/69 01/23/24 16:14 Pulse Oximetry 97 01/23/24 16:14 Oxygen Delivery Method Room Air 01/23/24 16:14 Const: Awake, alert, frail, nontoxic appearing Cardiac: regular rate, regular rhythm RESP: unlabored, clear bilaterally, no wheezing GI: Soft, nontender, nondistended, no rebound, no guarding Skin: Warm, Dry, intact, no rashes Neuro: AO x3, CN II-XII grossly intact, moves all extremities Course Orders Ordered: ED Orders 01/23/24 17:35 CMP [Comprehensive Metabolic Panel] Stat Complete Blood Count AUTO DIFF Stat 01/23/24 18:41 CT chest w con Stat Discontinued Medications Diazepam (Diazepam 10 Mg/2 Ml Syringe) 2 mg IV NOW ONE Stop: 01/23/24 19:15 Last Admin: 01/23/24 19:41 Dose: 2 mg Documented By: LASHAUN Glucagon (Glucagon,Human Recombinant 1 Mg/Ml Vial) 1 mg IV NOW ONE Stop: 01/23/24 17:07 Last Admin: 01/23/24 17:14 Dose: 1 mg Documented By: CAMERON Sodium Chloride (Normal Saline 0.9%) 1,000 mls @ 1,000 mls/hr IV BOLUS ONE Stop: 01/23/24 18:47 Last Infusion: 01/23/24 19:09 Dose: Infused Documented By: Admin: 01/23/24 17:53 Dose: 1,000 mls/hr Documented By: CAMERON Pantoprazole Sodium (Pantoprazole 40 Mg Vial) 40 mg IV NOW ONE Stop: 01/23/24 17:07 Last Admin: 01/23/24 17:13 Dose: 40 mg Documented By: CAMERON Vital Signs Vital signs: Vital Signs - 8 hr 01/23/24 18:30 01/23/24 19:30 01/23/24 19:49 Temperature Pulse Rate 85 82 84 Respiratory Rate Blood Pressure Pulse Oximetry 97 96 91 Oxygen Delivery Method 01/23/24 19:49 01/23/24 20:00 01/23/24 20:00 Temperature Pulse Rate 86 Respiratory Rate Blood Pressure 132/70 134/71 Pulse Oximetry 93 Oxygen Delivery Method 01/23/24 20:30 01/23/24 20:30 01/23/24 22:34 Temperature Pulse Rate 81 Respiratory Rate Blood Pressure 133/71 Pulse Oximetry 95 96 Oxygen Delivery Method 01/23/24 22:35 01/23/24 22:35 01/23/24 22:37 Temperature Pulse Rate 86 Respiratory Rate Blood Pressure 189/93 H 156/86 H Pulse Oximetry 96 Oxygen Delivery Method 01/23/24 22:37 01/23/24 22:38 01/23/24 22:44 Temperature 98.2 F Pulse Rate 82 82 Respiratory Rate 16 Blood Pressure 156/86 H 135/63 Pulse Oximetry 97 96 Oxygen Delivery Method Room Air MDM - Nausea/Vomiting/Diarrhea Differential Diagnosis Differential diagnosis: Likely food poisoning, gastroenteritis and drug-induced nausea and vomiting Lab Data 01/23/24 17:35 01/23/24 17:35 Labs: Lab Results 01/23/24 Range/Units 17:35 WBC 8.4 (4.5-11.0) X10^3/uL RBC 3.65 L (4.0-5.2) X10^6/uL Hgb 11.7 L (12.0-16.0) g/dL Hct 34.4 L (36-46) % MCV 94.3 (80-100) fL MCH 32.0 (26-34) PG MCHC 33.9 (30-36) % RDW 13.2 (11.6-14.8) % Plt Count 385 (150-400) X10^3/uL Neut % (Auto) 68.0 (50-75) % Lymph % (Auto) 24.3 L (25-40) % [place] % (Auto) 5.6 (3-14) % Eos % (Auto) 1.7 L (2-4) % Baso % (Auto) 0.4 (0-2) % Neut # (Auto) 5700 (4430-2331) /uL Lymph # (Auto) 2000 (4717-2405) /uL [place] # (Auto) 500 (0-900) /uL Eos # (Auto) 100 (0-450) /uL Baso # (Auto) 0 (0-100) /uL Sodium 138 (137-145) mmol/L Potassium 3.1 L (3.4-5.1) mmol/L Chloride 101 (98-107) mmol/L Carbon Dioxide 28 (22-32) mmol/L BUN 16 (7-17) mg/dL Creatinine 0.61 (0.52-1.04) mg/dL Estimated GFR > 60 (>60) mL/min BUN/Creatinine Ratio 26.2 H (6-22) Glucose 82 (80-110) mg/dL Calcium 9.4 (8.4-10.2) mg/dL Total Bilirubin 0.6 (0.2-1.3) mg/dL AST 22 (14-36) IU/L ALT 15 (<35) IU/L Alkaline Phosphatase 98 (38-126) U/L Total Protein 7.9 (6.3-8.2) g/dL Albumin 3.7 (3.5-5.0) g/dL Globulin 4.2 H (1.7-4.1) g/dL Albumin/Globulin Ratio 0.9 L (1.0-2.8) Imaging Data CT scan - chest: Radiologist's Impression: PROCEDURE: CT CHEST W CON INDICATIONS: RECENT PARAESOPHAGEAL HERNIA REPAIR, ?FOOD BOLUS TECHNIQUE: After the administration of intravenous contrast, 5 mm thick sections acquired from the pulmonary apices to the posterior costophrenic angles. 1 mm axial lung, 5 mm thick coronal and sagittal reformats and 7 mm axial MIP were acquired. For radiation dose reduction, the following was used: automated exposure control, adjustment of mA and/or kV according to patient size. COMPARISON: None. FINDINGS: Image quality: Diagnostic. Lower Neck: No enlarged lymph nodes. Thyroid: No thyroid nodules which require sonographic follow up, per consensus guidelines. Axillae: No enlarged lymph nodes. Chest Wall: Unremarkable. Bones: Unremarkable. Lungs and Pleura: No pneumothorax or pleural effusions. No consolidation or suspicious nodules. Heart: Heart size is normal. No pericardial effusion. Thoracic Vessels: The aorta and pulmonary arteries demonstrate normal size. Mediastinum and Ivana: No enlarged lymph nodes. Esophagus: Esophagus is diffusely dilated. There is a large amount of for liquid debris in food debris within the esophagus. The wall is thickened. There is narrowing of the esophagus at the GE junction with edematous change, likely representing changes from hiatal hernias repair surgery. Upper Abdomen: Visualized upper abdomen solid organs and bowel loops appear normal. IMPRESSION: 1. There is an edematous appearance in the region of the hiatal hernia repair surgery. This results in extrinsic narrowing of the esophagus at the GE junction. The esophagus becomes significantly dilated above the surgical site and contains extensive debris within it. The wall of the esophagus is thickened. 2. No evidence of esophageal perforation. No pneumomediastinum. 3. No evidence of aspiration pneumonia. Dictated by: Jony Hemls M.D. on 01/23/2024 at 19:35 Approved by: Jony Helms M.D. on 01/23/2024 at 19:38 MDM Narrative Medical decision making narrative: Nontoxic appearing female presenting for 2 days of inability to tolerate p.o.. While in the room patient does appear able to tolerate secretions, however when glucagon and soda was administered to the patient patient was unable to tolerate it. Call placed to Dr. Burns of General surgery, who recommended discussion with the patient's initial surgeon to see if patient needed to be transferred or could stay at [facility]. Discussed patient's case with on-call surgeon Dr. Rangel at [facility]. Dr. Rangel recommended CT of the chest with IV contrast to see if this was either a food bolus versus edema or stricture of the hiatal hernia site. Recommended trial of Valium and warm/room temperature fluids only to prevent further spasm. CT of the chest shows narrowing of the esophagus at the GE junction as well as proximal dilation above the surgical site with debris. There was also esophageal wall thickening. CT findings discussed with Dr. Rangel at [facility], who recommended transfer to [facility] to surgical services for additional treatment. Patient counseled of all lab and imaging findings as well as General surgery recommendations, she was in agreement with transfer at this time. Discharge Plan Departure Patient Disposition: [facility] Clinical Impression: Edema of esophagus, Dilatation of esophagus Prescriptions: No Action carvedilol 3.125 mg tablet 3.125 mg PO BID Rx Instructions: pt takes 6.25mg atorvastatin 80 mg tablet 80 mg PO BEDTIME trazodone 100 mg tablet 300 mg PO BEDTIME paroxetine HCl 40 mg tablet 40 mg PO DAILY venlafaxine 150 mg capsule,extended release 24hr 150 mg PO DAILY ferrous sulfate [FeroSul] 325 mg (65 mg iron) tablet 325 mg PO DAILY valsartan 40 mg tablet 40 mg PO DAILY omeprazole 20 mg capsule,delayed release(DR/EC) 20 mg PO DAILY fluticasone propionate 50 mcg/actuation spray,suspension 1 spray intranasal DAILY Rx Instructions: administer into each nostril triamcinolone acetonide 0.025 % cream 1 applic topical DAILY albuterol sulfate 90 mcg/actuation HFA aerosol inhaler 1 inh inhalation PRN cholecalciferol (vitamin D3) 25 mcg (1,000 unit) capsule 25 mcg PO DAILY ibuprofen 200 mg tablet 200 mg PO Q6H PRN aripiprazole 2 mg tablet 2 mg PO DAILY Referrals: Juany Reyna MD [Primary Care Provider] -
--- NOTE | 2024-01-23 18:23 | PC.NURSE ---
Pt ate lobster 2 days ago and it got stuck in her throat. Pt has not been able to eat or swallow for two days. Reports that every time she eats something it comes right back up. Hx of hernia surgery. A&Ox4.
--- NOTE | 2024-01-23 18:41 | DI.CT.S_ITS ---
PROCEDURE: CT CHEST W CON INDICATIONS: RECENT PARAESOPHAGEAL HERNIA REPAIR, ?FOOD BOLUS TECHNIQUE: After the administration of intravenous contrast, 5 mm thick sections acquired from the pulmonary apices to the posterior costophrenic angles. 1 mm axial lung, 5 mm thick coronal and sagittal reformats and 7 mm axial MIP were acquired. For radiation dose reduction, the following was used: automated exposure control, adjustment of mA and/or kV according to patient size. COMPARISON: None. FINDINGS: Image quality: Diagnostic. Lower Neck: No enlarged lymph nodes. Thyroid: No thyroid nodules which require sonographic follow up, per consensus guidelines. Axillae: No enlarged lymph nodes. Chest Wall: Unremarkable. Bones: Unremarkable. Lungs and Pleura: No pneumothorax or pleural effusions. No consolidation or suspicious nodules. Heart: Heart size is normal. No pericardial effusion. Thoracic Vessels: The aorta and pulmonary arteries demonstrate normal size. Mediastinum and Ivana: No enlarged lymph nodes. Esophagus: Esophagus is diffusely dilated. There is a large amount of for liquid debris in food debris within the esophagus. The wall is thickened. There is narrowing of the esophagus at the GE junction with edematous change, likely representing changes from hiatal hernias repair surgery. Upper Abdomen: Visualized upper abdomen solid organs and bowel loops appear normal. IMPRESSION: 1. There is an edematous appearance in the region of the hiatal hernia repair surgery. This results in extrinsic narrowing of the esophagus at the GE junction. The esophagus becomes significantly dilated above the surgical site and contains extensive debris within it. The wall of the esophagus is thickened. 2. No evidence of esophageal perforation. No pneumomediastinum. 3. No evidence of aspiration pneumonia. Dictated by: Jony Helms M.D. on 01/23/2024 at 19:35 Approved by: Joyn Helms M.D. on 01/23/2024 at 19:38
[2024-01-23] MEDS: diazePAM 10 MG/2 ML SYRINGE 2 MG IV (19:41)
== END 2024-01-23 22:56 | disposition short-term general hospital (02) ==
PROVIDERS: Emergency Medicine; Emergency Provider Emergency Medicine; PCP Internal Medicine
DX: K22.89 Other specified disease of esophagus (principal); Z79.899 Other long term (current) drug therapy
CPT/HCPCS: 36415; 71260; 80053; 85025; 96361; 96374; 96375; 99284; C9113; J1610; J3360; Q9967

== ENCOUNTER → 2024-09-14 13:20 | Outpatient (CLI) | payer MEDICARE, OTHER, SELFPAY | LOC: RESP 13:21 | PROVIDERS: PCP Family Medicine; Referring Provider Internal Medicine Critical Care Medicine; Visit Provider Internal Medicine Critical Care Medicine | DX: J45.20 Mild intermittent asthma, uncomplicated (principal); R94.2 Abnormal results of pulmonary function studies | CPT/HCPCS: 94060; 94726; 94729 ==

== ENCOUNTER → 2024-10-15 11:32 | Outpatient (CLI) | payer MEDICARE, OTHER, SELFPAY ==
--- NOTE | 2024-10-15 11:36 | DI.RAD.S_ITS ---
PROCEDURE: XR DEXA AXIAL SKELETON INDICATIONS: OSTEOPOROSIS SCREENING COMPARISON: None. FINDINGS: Lumbar Spine: Bone mineral density 1.35 g/cm2, T score 2.8. Left Hip: Bone mineral density is 0.706 g/cm2, T score -1.9.. Left Femoral Neck: Bone mineral density is 0.525 g/cm2, T score < -2.9. Right Hip: Bone mineral density is 0.682 g/cm2, T score -2.1 . Right Femoral Neck: Bone mineral density is 0.524 g/cm2, T score -2.9. Fracture Risk Calculation (when applicable): 10-year fracture risk of a major osteoporotic fracture 21 percent and of a hip fracture 8% percent. (T score greater or equal to -1.0 to: NORMAL) (T score from -1.1 to -2.4: OSTEOPENIA) (T score less than or equal to -2.5: OSTEOPOROSIS) IMPRESSION: Lumbar spine normal mineralization. Right and left hips and osteoporosis. Follow-up guidelines as follows: Osteoporosis: Consider a repeat DEXA and Vertebral Fracture Assessment (VFA) exam in 2 years or sooner if medically necessary, to reassess this patient's status. Osteopenia: Consider a repeat DEXA in 2-3 years to reassess this patient's status, or if there is a new clinical indication. Normal: Consider a repeat DEXA in 5 years or sooner, or if there is a new clinical indication. All treatment decisions require clinical judgment and consideration of individual patient factors, including patient preferences, comorbidities, previous drug use, risk factors not captured in the FRAX model (e.g., frailty, falls, vitamin D deficiency, increased bone turnover, interval significant decline in bone density ) and possible under- or over-estimation of fracture risk by FRAX. In addition, the NOF Guide recommends that FDA-approved medical therapies be considered in postmenopausal women and men age >= 50 years with a: * Hip or vertebral (clinical or morphometric) fracture * T-score of <=-2.5 at the spine or hip * Ten-year fracture probability by FRAX of >= 3% for hip fracture or >=20% for major osteoporotic fracture. People with diagnosed cases of osteoporosis or at high risk for fracture should have regular bone mineral density tests. For patients eligible for Medicare, routine testing is allowed once every 2 years. The testing frequency can be increased to one year for patients who have rapidly progressing disease, those who are receiving or discontinuing medical therapy to restore bone mass, or have additional risk factors. Dictated by: Hollis Pinon M.D. on 10/15/2024 at 14:27 Approved by: Hollis Pinon M.D. on 10/15/2024 at 15:06
== END ==
PROVIDERS: PCP Family Medicine; Referring Provider Family Medicine; Visit Provider Family Medicine
DX: M85.89 Other specified disorders of bone density and structure, multiple sites (principal)
CPT/HCPCS: 77080

== ENCOUNTER 2025-03-21 18:34 | Emergency (ER) | payer MEDICARE, OTHER, SELFPAY ==
[2025-03-21] VITALS (11 sets, daily range): BP systolic 134–176; BP diastolic 65–91; PULSE 77–91; RESP 11–20; TEMP 36.7; O2SAT 78–99; BMI 26.2
--- NOTE | 2025-03-21 18:51 | PC.NURSE ---
poc blood glucose 61.
--- NOTE | 2025-03-21 19:13 | PC.NURSE ---
notified dr brito, provided OJ, patient tolerated well, unsuccessful iv attempt x2. patient sister needed to leave and will return.
--- NOTE | 2025-03-21 19:59 | PC.NURSE ---
Repeat CBG 77, pt given juice, crackers, cheese, and PB and encouraged to eat.
--- NOTE | 2025-03-21 20:51 | DI.RAD.S_ITS ---
PROCEDURE: XR CHEST 1V INDICATIONS: chest pain TECHNIQUE: One view of the chest was acquired. COMPARISON: None. FINDINGS AND IMPRESSION: On this single view study, no dense airspace disease or pleural effusion is seen. Low lung volumes. Probable left lung base focal scarring. Heart size is within normal limits. Degenerative osseous changes. Dictated by: Farhad Kulkarni M.D. on 03/21/2025 at 21:19 Approved by: Farhad Kulkarni M.D. on 03/21/2025 at 21:20
--- NOTE | 2025-03-21 21:00 | EKG_ITS ---
[address] [address] Test Date: 2025-03-21 Pat Name: Radha Cooper Department: [facility] Room: Gender: Female Software Manager: : [id number] Requested By: Order Number: [id number] Reading MD: Suresh Toledo Measurements Intervals [place] Rate: 84 P: 42 KS: 162 QRS: 50 QRSD: 90 T: 44 QT: 404 QTc: 477 Interpretive Statements Normal sinus rhythm Electronically Signed On 03-24-2025 17:11:37 PDT by Suresh Toledo
[2025-03-21 21:13] LABS: Add Manual Diff / Slide Review NO; Basophils Absolute Auto 100 /uL (0-100); Basophils Percent Auto 0.6 % (0-2); Eosinophils Absolute Auto 100 /uL (0-450); Eosinophils Percent Auto 0.6 % (2-4); Hematocrit 38.3 % (36-46); Hemoglobin 12.9 g/dL (12.0-16.0); Lymphocytes Absolute Auto 1500 /uL (1100-4500); Mean Corpuscular HGB Conc 33.6 % (30-36); Monocytes Absolute Auto 400 /uL (0-900); Monocytes Percent Auto 3.3 % (3-14); Neutrophils Absolute Auto 8900 /uL (1500-7000); Neutrophils Percent Auto 81.5 % (50-75); Platelet Count 260 X10^3/uL (150-400); Red Blood Cell Count 3.91 X10^6/uL (4.0-5.2); White Blood Cell Count 10.9 X10^3/uL (4.5-11.0)
[2025-03-21 21:17] LABS: Alanine Aminotransferase 31 IU/L (<35); Albumin Globulin Ratio 1.1 (1.0-2.8); Alkaline Phosphatase 111 U/L (38-126); Aspartate Aminotransferase 29 IU/L (14-36); BUN Creatinine Ratio 25.4 (6-22); Bilirubin Total 0.3 mg/dL (0.2-1.3); Blood Urea Nitrogen 18 mg/dL (7-17); Calcium 9.4 mg/dL (8.4-10.2); Carbon Dioxide 32 mmol/L (22-32); Chloride 101 mmol/L (98-107); Creatine Kinase 57 U/L (30-135); Estimated Glomerular Filt Rate > 60 mL/min (>60); Globulin 3.7 g/dL (1.7-4.1); Glucose 107 mg/dL (70-99); HEMOLYSIS < 15 (0-50); Lipase 75 U/L (23-300); Potassium 3.6 mmol/L (3.4-5.1); Sodium 138 mmol/L (137-145); Total Protein 7.7 g/dL (6.3-8.2)
[2025-03-21 21:28] LABS: Troponin I < 0.012 ng/mL (0.01-0.034)
--- NOTE | 2025-03-21 21:49 | ED.NEUROSD ---
HPI - Neuro Symptoms/Deficit General Chief Complaint: Neuro Symptoms/Deficit Stated Complaint: Weakness, sweating, disorientated Time Seen by Provider: 03/21/25 20:50 Source: patient Mode of arrival: Wheelchair History of Present Illness HPI Narrative: 79-year-old female had weakness and diaphoresis today, similar episode yesterday, found to have low sugar 60s, was given orange juice in the waiting room, felt better while awaiting to arriving ED room for further evaluation. Thinks that she does not eat regularly. History of dementia. Her sister has been away for the last couple of days, decreased access to food. Denies fevers and chills, denies cough, denies painful frequent urination. No changes in medications. On Anticoagulants: No Related Data Home Medications Medication Instructions Recorded Confirmed atorvastatin 80 mg tablet 80 mg PO BEDTIME 12/24/18 08/24/24 carvedilol 3.125 mg tablet 3.125 mg PO BID 12/24/18 08/24/24 trazodone 100 mg tablet 300 mg PO BEDTIME 12/24/18 08/24/24 albuterol sulfate 90 mcg/actuation 1 inh inhalation PRN 12/31/22 08/24/24 aerosol inhaler aripiprazole 2 mg tablet 2 mg PO DAILY 12/31/22 08/24/24 cholecalciferol (vitamin D3) 25 25 mcg PO DAILY 12/31/22 08/24/24 mcg (1,000 unit) capsule ferrous sulfate 325 mg (65 mg 325 mg PO DAILY 12/31/22 08/24/24 iron) tablet (FeroSul) paroxetine HCl 40 mg tablet 40 mg PO DAILY 12/31/22 08/24/24 triamcinolone acetonide 0.025 % 1 applic topical DAILY 12/31/22 08/24/24 topical cream valsartan 40 mg tablet 40 mg PO DAILY 12/31/22 08/24/24 venlafaxine 150 mg 150 mg PO DAILY 12/31/22 08/24/24 capsule,extended release 24 hr Allergies Allergy/AdvReac Type Severity Reaction Status Date / Time latex [LATEX] Allergy Mild erythema Verified 08/24/24 09:24 dexamethasone [DEXAMETHASONE] AdvReac Severe depression, 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 Penicillins [PENICILLINS] AdvReac Severe Diarrhea Verified 08/24/24 09:24 Sulfa (Sulfonamide AdvReac Vomiting Verified 08/24/24 09:24 Antibiotics) Review of Systems Hematologic/Lymphatic On Anticoagulants: No Patient History Medical History Lumbar radiculopathy Greater trochanteric bursitis of both hips Bilateral leg pain Low back pain Spinal stenosis, lumbar region with neurogenic claudication Mood disorder Dyslipidemia Hypertension Surgical History History of repair of hiatal hernia Status post hernia repair History of tonsillectomy History of cataract removal with insertion of prosthetic lens Status post breast lumpectomy Family History Father Hypertension Heart disease Mother Hypertension Social History household members: none education level: college occupational status: previously employed Smoking Status: Never smoker Smoking Status: Never smoker alcohol intake frequency: 0-2 drinks per day Exam Narrative Exam Narrative: GENERAL: Well-developed patient, in mild distress. HEAD: Atraumatic. Normocephalic. EYES: Pupils equal round and reactive. Extraocular motions intact. No scleral icterus. No injection or drainage. ENT: Nose without bleeding, purulent drainage. Throat without erythema, tonsillar hypertrophy or exudate. Airway patent. NECK: Trachea midline. Non tender CARDIOVASCULAR: Regular rate and rhythm without murmurs, gallops, or rubs. RESPIRATORY: Clear to auscultation. Breath sounds equal bilaterally. No wheezes, rales, or rhonchi. GASTROINTESTINAL: Abdomen soft, non-tender, nondistended. EXTREMITIES: No edema or joint tenderness. BACK: Nontender without deformity or crepitance. No flank tenderness. NEURO: AOx3. Motor functions grossly nonfocal SKIN: No rash or erythema of visible areas Initial Vital Signs Initial Vital Signs: Vital Signs Temperature 98.0 F 03/21/25 18:40 Pulse Rate 77 03/21/25 18:40 Respiratory Rate 16 03/21/25 18:40 Blood Pressure 169/80 H 03/21/25 18:40 Pulse Oximetry 98 03/21/25 18:40 Oxygen Delivery Method Room Air 03/21/25 18:40 Course Orders Ordered: ED Orders 03/21/25 20:51 XR chest 1V Stat EKG-12 Lead Stat 03/21/25 20:56 Complete Blood Count AUTO DIFF Stat Comprehensive Metabolic Panel Stat Covid-19 + FLU A/B + RSV - PCR Stat Lipase Stat Troponin & CK Cardiac Panel Stat Vital Signs Vital signs: Vital Signs - 8 hr 03/21/25 18:40 03/21/25 20:15 03/21/25 20:18 Temperature 98.0 F Pulse Rate 77 Respiratory Rate 16 Blood Pressure 169/80 H 149/67 H Pulse Oximetry 98 78 L Oxygen Delivery Method Room Air 03/21/25 20:18 03/21/25 20:30 03/21/25 20:31 Temperature Pulse Rate 80 86 87 Respiratory Rate Blood Pressure Pulse Oximetry 95 97 97 Oxygen Delivery Method Room Air 03/21/25 20:31 03/21/25 21:00 03/21/25 21:24 Temperature Pulse Rate 83 Respiratory Rate Blood Pressure 142/67 H 176/77 H Pulse Oximetry 99 Oxygen Delivery Method 03/21/25 21:24 03/21/25 21:30 03/21/25 21:31 Temperature Pulse Rate 90 89 91 H Respiratory Rate 16 Blood Pressure Pulse Oximetry 94 95 94 Oxygen Delivery Method 03/21/25 21:31 03/21/25 22:00 03/21/25 22:00 Temperature Pulse Rate 84 Respiratory Rate 11 L Blood Pressure 138/91 H 135/65 Pulse Oximetry 98 Oxygen Delivery Method 03/21/25 22:30 03/21/25 22:30 Temperature Pulse Rate 83 Respiratory Rate 20 Blood Pressure 134/69 Pulse Oximetry 93 Oxygen Delivery Method MDM - Neuro Symptoms/Deficit Lab Data Attestation: I reviewed the patient's lab results. Lab results narrative: White blood cell count 54072, hemoglobin 12.9, platelets adequate. Glucose 107. Normal renal function. Normal electrolytes and carbon dioxide. Liver functions and lipase normal. Troponin negative unmeasurable. 03/21/25 20:56 03/21/25 20:56 Labs: Lab Results 03/21/25 03/21/25 Range/Units 20:56 Unknown WBC 10.9 (4.5-11.0) X10^3/uL RBC 3.91 L (4.0-5.2) X10^6/uL Hgb 12.9 (12.0-16.0) g/dL Hct 38.3 (36-46) % MCV 98.0 (80-100) fL MCH 33.0 (26-34) PG MCHC 33.6 (30-36) % RDW 14.0 (11.6-14.8) % Plt Count 260 (150-400) X10^3/uL Neut % (Auto) 81.5 H (50-75) % Lymph % (Auto) 14.0 L (25-40) % [place] % (Auto) 3.3 (3-14) % Eos % (Auto) 0.6 L (2-4) % Baso % (Auto) 0.6 (0-2) % Neut # (Auto) 8900 H (6781-3231) /uL Lymph # (Auto) 1500 (6936-3195) /uL [place] # (Auto) 400 (0-900) /uL Eos # (Auto) 100 (0-450) /uL Baso # (Auto) 100 (0-100) /uL Sodium 138 Cancelled (137-145) mmol/L Potassium 3.6 Cancelled (3.4-5.1) mmol/L Chloride 101 Cancelled (98-107) mmol/L Carbon Dioxide 32 Cancelled (22-32) mmol/L BUN 18 H Cancelled (7-17) mg/dL Creatinine 0.71 Cancelled (0.52-1.04) mg/dL Estimated GFR > 60 Cancelled (>60) mL/min BUN/Creatinine Ratio 25.4 H Cancelled (6-22) Glucose 107 H Cancelled (70-99) mg/dL Calcium 9.4 Cancelled (8.4-10.2) mg/dL Total Bilirubin 0.3 Cancelled (0.2-1.3) mg/dL AST 29 Cancelled (14-36) IU/L ALT 31 Cancelled (<35) IU/L Alkaline Phosphatase 111 Cancelled (38-126) U/L Total Creatine Kinase 57 (30-135) U/L Troponin I < 0.012 (0.01-0.034) ng/mL Total Protein 7.7 Cancelled (6.3-8.2) g/dL Albumin 4.0 Cancelled (3.5-5.0) g/dL Globulin 3.7 Cancelled (1.7-4.1) g/dL Albumin/Globulin Ratio 1.1 Cancelled (1.0-2.8) Lipase 75 (23-300) U/L SARS-CoV-2 (PCR) Negative (Negative) Influenza A (RT-PCR) Flu a negative (NEGATIVE) Influenza B (RT-PCR) Flu b negative (NEGATIVE) RSV (PCR) Negative (Negative) Point of Care Testing Glucose POC 104 ECG Data Attestation: I personally reviewed and interpreted this ECG as follows: Interpretation: 2100, normal sinus rhythm with rate of 84, no obvious ST segment elevation or depression changes. [place] 162, QRS 90, QTC 477. MDM Narrative Medical decision making narrative: 79-year-old female with weakness and diaphoresis, likely associated with low blood sugar 60s, responded to oral glucose challenge, improved glucose levels 70 to 80s, and symptoms resolved. Workup sent from triage unrevealing. Patient has subsequently been able to ambulate at baseline, going to the bathroom on her own power. Her sister as at her bedside, she has a history of dementia, and her sister had been away for 2 days, decreased access to oral intake food and drink. No known history of diabetes. Repeat glucose 104 further improved. Discharged home with sister. Discharge Plan Departure Patient Disposition: Home Clinical Impression: Hypoglycemia Activity Restrictions/Additional Instructions: Weakness today, decreased access to regular food and drink, low blood sugar measured, orange juice given, sugar improved and symptoms resolved. Other workup unrevealing. Family members now available to assist with regular access to food and drink to help maintain your sugar levels. Consider boost or ensure or other protein supplements to have a your bedside to also take to stay hydrated and also to have nutrition available. Recheck symptoms with your regular doctor later this week. Return to this/nearest emergency department for any change worsening symptoms or any concerns prior. Prescriptions: No Action carvedilol 3.125 mg tablet 3.125 mg PO BID Rx Instructions: pt takes 6.25mg atorvastatin 80 mg tablet 80 mg PO BEDTIME trazodone 100 mg tablet 300 mg PO BEDTIME paroxetine HCl 40 mg tablet 40 mg PO DAILY venlafaxine 150 mg capsule,extended release 24hr 150 mg PO DAILY ferrous sulfate [FeroSul] 325 mg (65 mg iron) tablet 325 mg PO DAILY valsartan 40 mg tablet 40 mg PO DAILY triamcinolone acetonide 0.025 % cream 1 applic topical DAILY albuterol sulfate 90 mcg/actuation HFA aerosol inhaler 1 inh inhalation PRN cholecalciferol (vitamin D3) 25 mcg (1,000 unit) capsule 25 mcg PO DAILY aripiprazole 2 mg tablet 2 mg PO DAILY Referrals: Freda Pérez MD [Primary Care Provider] - Stand Alone Forms: Patient Portal/API/Survey
[2025-03-21 22:44] LABS: Influenza A - CEPHEID Flu A NEGATIVE (NEGATIVE); Influenza B - CEPHEID Flu B NEGATIVE (NEGATIVE); Respiratory Syncytial Virus Negative (Negative)
[2025-03-21 22:48] LABS: COVID-19 CEPHEID 4-PLEX PCR Negative (Negative)
== END 2025-03-21 22:50 | disposition home or self-care (01) ==
PROVIDERS: Emergency Provider Emergency Medicine; PCP Family Medicine
DX: E16.2 Hypoglycemia, unspecified (principal)
CPT/HCPCS: 0241U; 36415; 71045; 80053; 82550; 82962; 83690; 84484; 85025; 93005; 99284

== ENCOUNTER → 2025-07-20 13:02 | Outpatient (CLI) | payer MEDICARE, OTHER, SELFPAY ==
[2025-07-20 13:55] LABS: Add Manual Diff / Slide Review NO; Hematocrit 34.2 % (36-46); Hemoglobin 11.6 g/dL (12.0-16.0); Lymphocytes Absolute Auto 1800 /uL (1100-4500); Mean Corpuscular HGB Conc 34.1 % (30-36); Mean Corpuscular Hemoglobin 33.2 PG (26-34); Mean Corpuscular Volume 97.5 fL (80-100); Platelet Count 279 X10^3/uL (150-400)
[2025-07-20 14:21] LABS: Alanine Aminotransferase 24 IU/L (<35); Albumin 3.7 g/dL (3.5-5.0); Albumin Globulin Ratio 1.1 (1.0-2.8); Alkaline Phosphatase 99 U/L (38-126); Blood Urea Nitrogen 16 mg/dL (7-17); Calcium 9.2 mg/dL (8.4-10.2); Carbon Dioxide 31 mmol/L (22-32); Chloride 98 mmol/L (98-107); Cholesterol 110 mg/dL (140-199); Estimated Glomerular Filt Rate > 60 mL/min (>60); Globulin 3.5 g/dL (1.7-4.1); Glucose 81 mg/dL (70-99); HDL Cholesterol 56 mg/dL (40-60); HEMOLYSIS < 15 (0-50); Potassium 3.9 mmol/L (3.4-5.1); Sodium 135 mmol/L (137-145); Total Protein 7.2 g/dL (6.3-8.2); Triglycerides 83 mg/dL (35-150)
[2025-07-20 14:38] LABS: T4 Total Thyroxine 7.93 ug/dL (5.5-11.0)
[2025-07-20 14:52] LABS: Thyroid Stimulating Hormone 3.17 uIU/mL (0.47-4.68)
== END ==
PROVIDERS: PCP Family Medicine; Referring Provider Family Medicine; Visit Provider Family Medicine
DX: C50.912 Malignant neoplasm of unspecified site of left female breast (principal); E78.2 Mixed hyperlipidemia; F33.40 Major depressive disorder, recurrent, in remission, unspecified; G89.29 Other chronic pain; I10 Essential (primary) hypertension; I51.9 Heart disease, unspecified; J45.20 Mild intermittent asthma, uncomplicated; M25.561 Pain in right knee; M25.562 Pain in left knee; R19.7 Diarrhea, unspecified; Z13.0 Encounter for screening for diseases of the blood and blood-forming organs and certain disorders involving the immune mechanism; Z13.29 Encounter for screening for other suspected endocrine disorder; Z85.3 Personal history of malignant neoplasm of breast
CPT/HCPCS: 36415; 80053; 80061; 83721; 84436; 84443; 85025

== ENCOUNTER → 2025-08-10 14:54 | Outpatient (CLI) | payer MEDICARE, OTHER, SELFPAY | LOC: LAB 14:55 | PROVIDERS: PCP Family Medicine; Referring Provider Family Medicine; Visit Provider Family Medicine | DX: D64.9 Anemia, unspecified (principal) | CPT/HCPCS: 82274 ==